=== PATIENT | female | born 1935 | race Caucasian/White ===

== ENCOUNTER 2016-08-20 16:38 | Inpatient (IN) | payer OTHER ==
[~2016-08-20] VITALS: Ht 157.5 cm; Wt 96.5 kg
[~2016-08-20 16:38] MED LIST: CYCL-319 PO; htn meds
[2016-08-20] MEDS ORDERED: FUROSEMIDE 40 MG INJ IV ONE (19:00)
--- NOTE | 2016-08-20 19:56 | RADRPT ---
PROCEDURE: XR Chest. CLINICAL INDICATION: Abdominal Pain TECHNIQUE: Portable single view of the chest COMPARISON: None. FINDINGS: Cardiomegaly and aortic calcification. Enlarged bilateral paratracheal soft tissues. Top normal pu lmonary vascularity. No definite acute infiltrate or pleural effusion. Degenerative change of the spine. IMPRESSION: Cardiomegaly and aortic calcification. Prominent bilateral paratracheal soft tissues which may be d ue to adenopathy, ectatic vasculature, or goiter. Elective follow-up CT is suggested. RPTAT: [facility] Physician Williams Date Time Electronically viewed and signed by Catherine Thomas Physician on 08/20/2016 19:56 YUNI/
--- NOTE | 2016-08-20 19:59 | ERA ---
ER Documentation Chief Complaint Date/Time DATE: 08/20/16 TIME: 19:58 Chief Complaint BILAT LOWER EXT SWELLING [id number], COUGH/CONGESTION [id number] HPI 81-year-old woman presents with family members for shortness of breath about 2 weeks of peripheral edema. She states she had one episode of peripheral edema about 3-4 months ago which resolved after a few days of oral furosemide therapy. She has had coughing and dyspnea on exertion 2 weeks, she denies fevers or chills, no chest pain, no vomiting or diarrhea. Patient denies blood per rectum or melena, denies weight loss. ROS All systems reviewed and are negative except as per history of present illness. Medications Home Meds Reported Medications [htn meds] No Conflict Check 02/02/13 Cyclobenzaprine Hcl* (Cyclobenzaprine Hcl*) 10 Mg Tablet, 10 MG PO TID 03/19/12 Allergies Allergies: Coded Allergies: No Known Allergy (Unverified , 02/02/13) PMhx/Soc Obesity, hypertension, diabetes mellitus, atrial fibrillation? History of Surgery: Yes (JOSEPHINE, HYSTERECTOMY) Anesthesia Reaction: No Hx Neurological Disorder: No Hx Respiratory Disorders: No Hx Cardiac Disorders: No Hx Psychiatric Problems: No Hx Miscellaneous Medical Probl: Yes (HTN) Hx Alcohol Use: No Hx Substance Use: No Hx Tobacco Use: No Smoking Status: Never smoker FmHx Family History: No diabetes Physical Exam Vitals Vital Signs Date Time Temp Pulse Resp B/P Pulse Ox O2 Delivery O2 Flow Rate FiO2 08/20/16 19:50 176/89 08/20/16 16:48 98.0 94 20 179/85 97 Physical Exam GENERAL: Well-developed, well-nourished, well-hydrated, in no apparent distress , looks nontoxic in appearance HEENT: Moist mucous membranes, pink conjunctiva, no cervical spine tenderness or step-off deformities, no goiter, no jaundice or icterus, extraocular movements intact without pain. No submandibular induration, and no pharyngeal erythema NEURO: Alert and oriented 3, cranial nerves II through XII intact bilaterally, pupils equal round reactive to light, no focal deficits or facial asymmetry, sensation intact distally Strength 5/5 in upper and lower extremities bilaterally CARDIAC: Regular rate and rhythm, no murmurs rubs or gallops LUNGS: Clear bilaterally no wheezing crackles or stridor ABDOMEN: Soft nontender, no guarding, no rigidity, no rebound, no psoas sign no obturator sign. Normoactive bowel sounds SKIN: Warm and dry to touch, no abrasions, contusions, or hematomas, no lacerations, no ecchymosis, no target lesions, and without ulcers EXTREMITIES: No clubbing cyanosis, 3+ pitting edema in the lower extremities bilaterally, calves are bilaterally symmetrical, no Homans sign, no popliteal cord sign. Distal pulses equal and bilateral PSYCH: Normal affect without agitation or irritability Result Diagram: 08/20/16193908/20/161939 Results 24 hrs Laboratory Tests Test 08/20/16 19:40 08/20/16 20:00 White Blood Count 7.610^3/ul Red Blood Count 3.5710^6/ul Hemoglobin 10.4g/dl Hematocrit 33.4% Mean Corpuscular Volume 93.6fl Mean Corpuscular Hemoglobin 29.1pg Mean Corpuscular Hemoglobin Concent 31.1g/dl Red Cell Distribution Width 13.7% Platelet Count 38714^3/UL Mean Platelet Volume 12.4fl Neutrophils % 64.4% Lymphocytes % 20.4% Monocytes % 9.8% Eosinophils % 4.5% Basophils % 0.5% Nucleated Red Blood Cells % 0.0/100WBC Neutrophils # 4.910^3/ul Lymphocytes # 1.610^3/ul Monocytes # 0.710^3/ul Eosinophils # 0.310^3/ul Basophils # 0.010^3/ul Nucleated Red Blood Cells # 0.010^3/ul Sodium Level 140mmol/L Potassium Level 4.6mmol/L Chloride Level 102mmol/L Carbon Dioxide Level 28mmol/L Anion Gap 15 Blood Urea Nitrogen 25mg/dl Creatinine 1.22mg/dl Glucose Level 122mg/dl Calcium Level 9.5mg/dl Total Bilirubin 0.2mg/dl Direct Bilirubin 0.00mg/dl Indirect Bilirubin 0.2mg/dl Aspartate Amino Transf (AST/SGOT) 27IU/L Alanine Aminotransferase (ALT/SGPT) 27IU/L Alkaline Phosphatase 142IU/L Troponin I < 0.012ng/ml B-Type Natriuretic Peptide 5300PG/ML Total Protein 7.3g/dl Albumin 3.9g/dl Globulin 3.40g/dl Albumin/Globulin Ratio 1.14 Lipase 161U/L Urine Color LT. YELLOW Urine Clarity CLEAR Urine pH 6.5 Urine Specific Timbo 1.010 Urine Ketones NEGATIVE Urine Nitrite NEGATIVE Urine Bilirubin NEGATIVE Urine Urobilinogen 0.2 E.U./dL Urine Leukocyte Esterase 1+ Urine Microscopic RBC NONE SEEN/HPF Urine Microscopic WBC 10-25/HPF Urine Squamous Epithelial Cells FEW Urine Bacteria FEW Urine Hemoglobin NEGATIVE Urine Glucose NEGATIVE% Urine Total Protein 2+ Current Medications Medications (Trade) Dose Ordered Sig/Shalonda Route PRN Reason Start Time Stop Time Status Last Admin Dose Admin Furosemide (Lasix) 60 mg ONCE ONCE IV 08/20/16 19:00 08/20/16 19:01 DC 08/20/16 19:45 Aspirin (Aspirin) 325 mg ONCE ONCE PO 08/20/16 20:30 08/20/16 20:31 DC 08/20/16 20:20 Digoxin (Digoxin) 125 mcg ONCE ONCE IV 08/20/16 20:30 08/20/16 20:31 DC 08/20/16 20:21 Procedures/MDM IV line was established patient was placed on manager cardiac rhythm strip revealed a normal sinus rhythm at about 80 bpm with upright P and T waves. Patient was afebrile. EKG performed, read by me revealed an atrial fibrillation rate controlled at 84 bpm, normal axis, narrow QRS complex, no concerning ST elevations or depressions noted. One view chest x-ray performed, read by me revealed cardiomegaly and bilateral pulmonary vascular congestion consistent with decompensated heart failure, no acute infiltrates, no pneumothorax. I administered furosemide 60 mg IV, aspirin 325 mg p.o. for cardioprotective measures, and digoxin 0.25 mg IV. CBC was unremarkable, electrolytes revealed a BUN/creatinine of 25/1.2, liver function tests are normal, troponin was negative. Urine analysis was positive for infection so I treated her here with ceftriaxone 1 g IV. I suspect decompensated heart failure and she will require admission for diuresis and continued medical management and cardiology consultation. She may have a history of atrial fibrillation although I am uncertain about this. Critical Care: Time: 37 minutes, this was time separate from other procedures. Treatments/Evaluations: Close monitoring and treatment of unstable vital signs, cardiorespiratory, and neurologic status, while maintaining tight balance of fluid, respiratory, and cardiac interventions. Departure Diagnosis: Primary Impression: CHF (congestive heart failure) Qualified Code: I50.21 - Acute systolic congestive heart failure Additional Impressions: Atrial fibrillation Qualified Code: I48.91 - Atrial fibrillation, unspecified type Peripheral edema UTI (urinary tract infection) Qualified Code: N30.00 - Acute cystitis without hematuria Condition: ZACK Nelson MD Aug 20, 2016 19:59
[2016-08-20 20:07] LABS: ADD SCAN DIFF NO
[2016-08-20 20:10] LABS: BASOPHILS % 0.5 % (0.0-2.0); EOSINOPHILS # 0.3 10^3/ul (0.0-0.5); EOSINOPHILS % 4.5 % (0.0-7.0); HEMATOCRIT 33.4 % (37.0-47.0); HEMOGLOBIN 10.4 g/dl (12.0-16.0); LYMPHOCYTES # 1.6 10^3/ul (0.8-2.9); LYMPHOCYTES % 20.4 % (15.0-51.0); MEAN CORPUSCULAR HEMOGLOBIN 29.1 pg (29.0-33.0); MEAN CORPUSCULAR HGB CONC 31.1 g/dl (32.0-37.0); MEAN CORPUSCULAR VOLUME 93.6 fl (82.0-101.0); MEAN PLATELET VOLUME 12.4 fl (7.4-10.4); MONOCYTE # 0.7 10^3/ul (0.3-0.9); MONOCYTES % 9.8 % (0.0-11.0); NEUTROPHIL # 4.9 10^3/ul (1.6-7.5); NEUTROPHILS % 64.4 % (39.0-77.0); PLATELET COUNT 235 10^3/UL (140-415); RED BLOOD COUNT 3.57 10^6/ul (4.20-5.40); RED CELL DISTRIBUTION WIDTH 13.7 % (11.5-14.5); WHITE BLOOD COUNT 7.6 10^3/ul (4.8-10.8)
[2016-08-20 20:26] LABS: ALBUMIN 3.9 g/dl (3.3-4.9)
[2016-08-20 20:27] LABS: CHLORIDE 102 mmol/L (97-110); POTASSIUM 4.6 mmol/L (3.5-5.1); SODIUM 140 mmol/L (135-144)
[2016-08-20 20:29] LABS: ANION GAP 15 (8-16); ASPARTATE AMINO TRANSFERASE 27 IU/L (15-46); BILIRUBIN,INDIRECT 0.2 mg/dl (0-1.1); BILIRUBIN,TOTAL 0.2 mg/dl (0.2-1.3); CARBON DIOXIDE 28 mmol/L (21-31); CREATININE 1.22 mg/dl (0.44-1.00)
[2016-08-20 20:30] LABS: ALANINE AMINOTRANSFERASE 27 IU/L (13-69); ALBUMIN/GLOBULIN RATIO 1.14; ALKALINE PHOSPHATASE 142 IU/L (42-121); BLOOD UREA NITROGEN 25 mg/dl (7-20); CALCIUM 9.5 mg/dl (8.4-10.2); GLUCOSE 122 mg/dl (70-220); TOTAL PROTEIN 7.3 g/dl (6.1-8.1)
[2016-08-20] MEDS ORDERED: DIGOXIN 500 MCG INJ IV ONE (20:30)
[2016-08-20] MEDS ORDERED: ASPIRIN 325 MG TAB PO ONE (20:30)
[2016-08-20 20:36] LABS: ADD UMIC YES; URINE BILIRUBIN (Dip) NEGATIVE (NEGATIVE); URINE BLOOD (Dip) NEGATIVE (NEGATIVE); URINE COLOR LT. YELLOW (YELLOW); URINE GLUCOSE (Dip) NEGATIVE (NEGATIVE); URINE KETONES (Dip) NEGATIVE (NEGATIVE); URINE LEUKOCYTE ESTERASE (Dip) 1+ (NEGATIVE); URINE NITRITE (Dip) NEGATIVE (NEGATIVE); URINE TOTAL PROTEIN (Dip) 2+ (NEGATIVE); URINE UROBILINOGEN (Dip) 0.2 E.U./dL (0.1-1.0)
[2016-08-20 20:39] LABS: B-TYPE NATRIURETIC PEPTIDE 5300 PG/ML (0-450)
[2016-08-20 20:49] LABS: TROPONIN-I < 0.012 ng/ml (0.00-0.12)
[2016-08-20 21:01] LABS: BACTERIA,URINE FEW; SQUAMOUS EPITHELIAL CELL,UR FEW; URINE RBCS NONE SEEN /HPF (0)
[2016-08-20] MEDS ORDERED: CEFTRIAXONE 1 GM/50 ML (PMX) 50 ML IVPB ONE (21:30)
[2016-08-20] MEDS ORDERED: POTA20TA15 PO (21:31)
[2016-08-20] MEDS ORDERED: LISI-313 PO (21:32)
[2016-08-20] MEDS ORDERED: CARV12.579 PO (21:32)
[2016-08-20] MEDS ORDERED: OMEP20CA16 PO (21:33)
[2016-08-20] MEDS ORDERED: FURO40TA4 PO (21:34)
[2016-08-20] MEDS ORDERED: ASPI-664 PO (21:34)
[2016-08-20] MEDS ORDERED: WARF5TAB72 PO (21:35)
[2016-08-20] MEDS ORDERED: AMLO2.5T78 PO (21:35)
[2016-08-20] MEDS ORDERED: METO-429 PO (21:36)
[2016-08-20] MEDS ORDERED: ATOR40TA68 PO (21:36)
[2016-08-20] MEDS ORDERED: GLIP5TAB13 PO (21:37)
[2016-08-20] MEDS ORDERED: METF500T4 PO (21:38)
[2016-08-21] VITALS (10 sets, daily range): BP systolic 125–170; BP diastolic 76–115; PULSE 76–88; RESP 17–20; TEMP 98.2; Ht 157.5 cm; Wt 96.5 kg
[2016-08-21] MEDS ORDERED: FUROSEMIDE 40 MG TAB PO SCH (09:00)
[2016-08-21] MEDS: LISINOPRIL 5 MG TAB PO SCH (09:20)
[2016-08-21] MEDS: AMLODIPINE 2.5 MG TAB PO SCH (09:20)
[2016-08-21] MEDS: ASPIRIN (EC) 81 MG TAB PO SCH (09:20)
[2016-08-21] MEDS: ATORVASTATIN 40 MG TAB PO SCH (09:21)
[2016-08-21] MEDS: POTASSIUM CHLORIDE (SR) 20 MEQ TAB PO SCH (09:44)
[2016-08-21] MEDS: METOPROLOL 50 MG TAB PO SCH ×2 (09:45→20:46)
[2016-08-21] MEDS ORDERED: ACETAMINOPHEN 325 MG TAB PO PRN (14:30)
[2016-08-21] MEDS ORDERED: NACL 0.9% 3 ML SYG IV SCH (14:30)
--- NOTE | 2016-08-21 16:13 | HP ---
Date/Time of Note Date/Time of Note DATE: 08/21/16 TIME: 15:56 Assessment/Plan VTE Prophylaxis VTE Prophylaxis Intervention: LMWH Lines/Catheters IV [facility] Saline Lock Assessment/Plan Chief Complaint/Hosp Course 1. Decompensated systolic CHF 2. Acute renal failure 3. Hypertension, controlled 4. Morbid obesity 5. Atrial fibrillation, controlled Problems: Assessment/Plan 1. Diuresis 2. Cardiology consult Dr Owens 3. Telemetry monitoring HPI/ROS Admit Date/Time Admit Date/Time Aug 20, 2016 at 20:21 Hx of Present Illness pt was brought by family to ER . Patient reported Shortness of breath for 2 weeks, cough and dyspnea on exertion.Previously few month ago patient had similar event with shortness of breath and swollen feet when she was treated by oral furosemide and those symptoms resolved. ROS Constitutional: fatigue Eyes: no complaints ENT: no complaints Respiratory: shortness of breath Cardiovascular: No edema, No lightheadedness, No orthopenea, No palpitations, No paroxysmal nocturnal dyspnea Gastrointestinal: no complaints Genitourinary: no complaints Musculoskeletal: back pain, bone/joint pain, neck pain, no complaints, other, restricted range of motion, swelling (lower extremities) Skin: no complaints PMH/Family/Social Past Medical History hysterectomy Medical History: congestive heart failure, hypertension, other Past Surgical History hysterectomy Past Surgical Hx: other Family History Significant Family History: no pertinent family hx Social History Alcohol Use: none Smoking Status: Never smoker Drug Use: none Exam/Review of Systems Vital Signs Vitals Vital Signs Date Time Temp Pulse Resp B/P Pulse Ox O2 Delivery O2 Flow Rate FiO2 08/21/16 15:23 98.0 77 18 125/78 98 08/21/16 14:38 Room Air Exam Constitutional: alert, oriented, other Psych: nl mood/affect, no complaints Head: atraumatic, normocephalic ENMT: nl external ears & nose, nl lips & teeth Neck: supple Respiratory: diminished breath sounds Cardiovascular: other (S2 only), regular rate and rhythm Gastrointestinal: soft Genitourinary - Female: nl external genitalia Musculoskeletal: muscle weakness, swelling Extremities: edema Neurological: ELEVATOR RUNNER II-XII intact, nl mental status Skin: nl turgor Lymph: nl lymph nodes Labs Result Diagram: 4/27/17 1940 4/27/17 1940 Medications Medications Current Medications Amlodipine Besylate (Norvasc) 2.5 mg DAILY PO Last administered on 08/21/16 09 :20; Admin Dose 2.5 MG; Start 08/21/16 at 09:00 Aspirin (Halfprin) 81 mg DAILY PO Last administered on 08/21/16 09:20; Admin Dose 81 MG; Start 08/21/16 at 09:00 Atorvastatin Calcium (Lipitor) 40 mg DAILY PO Last administered on 08/21/16 09 :21; Admin Dose 40 MG; Start 08/21/16 at 09:00 Carvedilol (Coreg) 12.5 mg BID PO Last administered on 08/21/16 09:21; Admin Dose 12.5 MG; Start 08/21/16 at 09:00 Furosemide (Lasix) 40 mg DAILY@06 PO Last administered on 08/21/16 09:20; Admin Dose 40 MG; Start 08/21/16 at 09:00 Lisinopril (Zestril) 5 mg DAILY PO Last administered on 08/21/16 09:20; Admin Dose 5 MG; Start 08/21/16 at 09:00 Metoprolol Tartrate (Lopressor) 50 mg BID PO Last administered on 08/21/16 09: 45; Admin Dose 50 MG; Start 08/21/16 at 09:00 Potassium Chloride (Klor-Con 20) 20 meq DAILY PO Last administered on 09:44; Admin Dose 20 MEQ; Start 08/21/16 at 09:00 Warfarin Sodium (Coumadin) 5 mg DAILY@17 PO ; Start 08/21/16 at 17:00 Acetaminophen (Tylenol Tab) 650 mg Q6H PRN PO PAIN LEVEL 1-3 OR FEVER; Start at 14:30 Famotidine (Pepcid) 20 mg Q12 PO ; Start 08/21/16 at 21:00 WADE AGUIAR Aug 21, 2016 16:06 WADE AGUIAR Aug 21, 2016 16:06
--- NOTE | 2016-08-21 16:39 | CONS ---
DATE OF ADMISSION: 08/20/2016 DATE OF CONSULTATION: 08/21/2016 CARDIOLOGY CONSULTATION REASON FOR CONSULTATION: Atrial fibrillation, shortness of breath, lower extremity edema, assess for congestive heart failure. REQUESTING PHYSICIAN: Dr. Mateusz Kaminski HISTORY OF PRESENT ILLNESS: Ms. Salgado is an 81-year-old female with a history of prior cholecystectomy, hysterectomy, and hypertension who initially presented with complaints of lower extremity swelling, shortness of breath, and cough ongoing for approximately 1 week. Upon arrival in the emergency department, temperature 98, blood pressure 145/85, pulse 94, respiratory rate 20 , saturating 97%. The patient's labs revealed white count 7.6, hemoglobin 10.4 , platelet count 235. Sodium 140, potassium 4.6, creatinine 1.22, BUN 25, AST 27, ALT 27. Troponin negative. BNP of 5300. UA borderline. The patient underwent a chest x-ray revealing cardiomegaly and aortic calcification, prominent bilateral. Peritracheal soft tissue may be due to adenopathy, ectatic vasculature, or goiter. No definite acute infiltrate or pleural effusion. The patient's electrocardiogram is not in the chart for my review at this time. The patient subsequently was found to be in atrial fibrillation additionally and was treated with digoxin 125 mcg IV x1 and given a dose of Lasix for lower extremity swelling and is now being admitted to the floor. Since admit to floor, the patient monitored on telemetry revealing rate controlled atrial fibrillation. PAST MEDICAL HISTORY: As above in HPI. MEDICATIONS CURRENTLY IN HOSPITAL: 2. Coumadin 5 mg daily. 3. Tylenol p.r.n. 4. Norvasc 2.5 mg daily. 5. Aspirin 81 mg daily. 6. Lipitor 40 mg daily. 7. Carvedilol 12.5 mg p.o. b.i.d. 8. Lasix 40 mg daily. 9. Zestril 5 mg daily. 10. Metoprolol 50 mg p.o. b.i.d. 11. Potassium chloride 10 mEq daily. ALLERGIES: NO KNOWN DRUG ALLERGIES. SOCIAL HISTORY: No tobacco, ETOH, or illicit drug use. MEDICATIONS PRIOR TO HOSPITALIZATION: 1. Coumadin 5 mg daily. 2. Norvasc 2.5 mg daily. 3. Lipitor 40 mg at bedtime. 4. Carvedilol 12.5 mg p.o. b.i.d. 5. Lisinopril 5 mg daily. 7. Metoprolol 50 mg b.i.d. 8. Aspirin 81 mg daily. 9. Lasix 40 mg daily. 10. K-Dur 20 mEq daily. 11. Glipizide 5 mg daily. 12. Metformin 500 mg b.i.d. ALLERGIES: NO KNOWN DRUG ALLERGIES. SOCIAL HISTORY: No tobacco, ETOH, or illicit drug use. FAMILY HISTORY: No history of sudden cardiac or early CAD. REVIEW OF SYSTEMS: As above in HPI. CONSTITUTIONAL: No fevers, chills. PULMONARY: Shortness of breath. CARDIOVASCULAR: No current chest pain, atrial fibrillation. GASTROINTESTINAL: No vomiting. GENITOURINARY: No hematuria. MUSCULOSKELETAL: Degenerative joint disease. PSYCHIATRIC: No documented psych history. NEUROLOGIC: No documented history of CVA. PHYSICAL EXAMINATION: VITAL SIGNS: Temperature 98, blood pressure 125/78, pulse 77, respiratory rate 18, saturating 98%. GENERAL: The patient is alert, awake, complaining of mild shortness of breath. NECK: JVP approximately 8 to 9 cm of water. CHEST: Fair movement throughout with mildly decreased breath sounds at bases bilaterally. HEART: Irregularly irregular, I/ systolic murmur, nondisplaced PMI. ABDOMEN: Positive bowel sounds, soft. EXTREMITIES: 2 to 3+ edema bilaterally. Difficult to palpate distal pulses bilaterally posterior tibial. LABORATORY DATA: As above in HPI. No further labs for my review at this time. IMAGING STUDIES: As above in HPI. No further imaging studies for my review at this time. ECG: Which has now been found reveals atrial fibrillation at a rate of 84, normal axis, normal intervals with nonspecific ST and T-wave abnormalities diffusely. IMPRESSION: 1. Atrial fibrillation, rate controlled. 2. Shortness of breath, lower extremity edema, assess for congestive heart failure. 3. Hypertension, under reasonable control. 4. Dyslipidemia. 5. Renal failure. 6. Anemia. 7. Borderline urinary tract infection. RECOMMENDATIONS: 1. At this time, would maintain the patient on telemetry monitoring to follow rhythm and rate control closely. 2. We will continue the patient's current Lasix diuresis. We will increase to b.i.d. following creatinine closely. 3. Continue the patient's current antihypertensives with Norvasc, carvedilol, and Zestril. 4. Continue the patient's Coumadin loading and would check an INR and baseline to assess current anticoagulation state. 5. Continue the patient's baby aspirin at this time. 6. Check serial EKGs to assess for any significant ongoing changes. Would complete a rule out for myocardial infarction to ensure the patient's prior EKG changes are not due to any recent acute coronary syndromes, also lending to the lower extremity edema, possible congestive heart failure. 7. Would check a 2D echocardiogram to further assess the patient's ejection fraction, wall motion, or any major valve abnormalities. Thank you for allowing me to take part in the care of this patient. I will continue to follow along very closely with you. Further recommendations to be made as the patient progresses through her inpatient hospital clinical course. Dictated By: MARINA JOHNSON/JUSTO Conf#: [id number] DID#: [id number] CC: MATEUSZ KAMINSKI MD;*EndCC* MTDD
[2016-08-21] MEDS: WARFARIN 5 MG TAB PO SCH (17:32)
[2016-08-21] MEDS: FUROSEMIDE 40 MG INJ IV SCH (17:33)
--- NOTE | 2016-08-21 17:38 | RADRPT ---
PROCEDURE: US Lower extremity Venous. CLINICAL INDICATION: Bilateral lower extremity edema TECHNIQUE: Multiple sonographic images of the bilateral lower extremity deep venous system was obt ained utilizing grayscale, color-flow, compressive sonography and doppler imaging with augmentation. The images were reviewed on a PACS workstation. COMPARISON: None. FINDINGS: There is normal compressibility and flow within the bilateral common femoral, femoral , posterior ti bial and popliteal veins. There is a complex right popliteal Tello's cyst measuring 2.6 x 1.6 x 5.6 cm. RPTAT: AA IMPRESSION: No sonographic evidence for deep venous thrombosis. Complex right popliteal Tello's cyst. .Marshall Braga MD, MD Date Time Electronically viewed and signed by .Marshall Braga MD, on 08/21/2016 17:37 .S/
[2016-08-21 17:41] LABS: INR 1.82; PROTIME 21.2 Sec (12.2-14.2); PT RATIO 1.7
[2016-08-21 19:24] LABS: CREATINE KINASE 95 IU/L (23-200)
[2016-08-21 19:32] LABS: CK-MB 0.71 ng/ml (0.0-2.4)
[2016-08-21 19:42] LABS: TROPONIN-I < 0.012 ng/ml (0.00-0.12)
[2016-08-21] MEDS: FAMOTIDINE 20 MG TAB PO SCH (20:46)
[2016-08-22] VITALS (13 sets, daily range): BP systolic 119–163; BP diastolic 57–85; PULSE 75–85; RESP 16–20
[2016-08-22 01:00] LABS: CREATINE KINASE 123 IU/L (23-200)
[2016-08-22 01:14] LABS: CK-MB 0.85 ng/ml (0.0-2.4)
[2016-08-22 01:17] LABS: TROPONIN-I < 0.012 ng/ml (0.00-0.12)
[2016-08-22] MEDS: FUROSEMIDE 40 MG INJ IV SCH (05:39)
[2016-08-22 07:07] LABS: ADD SCAN DIFF NO
[2016-08-22 07:22] LABS: BASOPHILS % 0.6 % (0.0-2.0); EOSINOPHILS # 0.3 10^3/ul (0.0-0.5); EOSINOPHILS % 4.2 % (0.0-7.0); HEMATOCRIT 33.3 % (37.0-47.0); HEMOGLOBIN 10.4 g/dl (12.0-16.0); INR 1.73; LYMPHOCYTES # 1.5 10^3/ul (0.8-2.9); LYMPHOCYTES % 21.6 % (15.0-51.0); MEAN CORPUSCULAR HEMOGLOBIN 28.7 pg (29.0-33.0); MEAN CORPUSCULAR HGB CONC 31.2 g/dl (32.0-37.0); MEAN CORPUSCULAR VOLUME 91.7 fl (82.0-101.0); MEAN PLATELET VOLUME 12.7 fl (7.4-10.4); MONOCYTE # 0.7 10^3/ul (0.3-0.9); MONOCYTES % 10.1 % (0.0-11.0); NEUTROPHIL # 4.5 10^3/ul (1.6-7.5); NEUTROPHILS % 63.4 % (39.0-77.0); PLATELET COUNT 229 10^3/UL (140-415); PROTIME 20.4 Sec (12.2-14.2); PT RATIO 1.6; RED BLOOD COUNT 3.63 10^6/ul (4.20-5.40); RED CELL DISTRIBUTION WIDTH 13.7 % (11.5-14.5); WHITE BLOOD COUNT 7.1 10^3/ul (4.8-10.8)
[2016-08-22 07:29] LABS: CREATINE KINASE 143 IU/L (23-200)
[2016-08-22 07:37] LABS: ALBUMIN 3.6 g/dl (3.3-4.9); CK-MB 1.26 ng/ml (0.0-2.4)
[2016-08-22 07:38] LABS: TROPONIN-I < 0.012 ng/ml (0.00-0.12)
[2016-08-22 07:40] LABS: ALBUMIN/GLOBULIN RATIO 1.2; BILIRUBIN,INDIRECT 0.5 mg/dl (0-1.1); BILIRUBIN,TOTAL 0.5 mg/dl (0.2-1.3); CREATININE 1.46 mg/dl (0.44-1.00); TOTAL PROTEIN 6.6 g/dl (6.1-8.1)
[2016-08-22 07:41] LABS: CALCIUM 9.5 mg/dl (8.4-10.2)
[2016-08-22] MEDS: FAMOTIDINE 20 MG TAB PO SCH ×2 (08:14→21:07)
[2016-08-22] MEDS: ASPIRIN (EC) 81 MG TAB PO SCH (08:14)
[2016-08-22] MEDS: AMLODIPINE 2.5 MG TAB PO SCH (08:14)
[2016-08-22] MEDS: ATORVASTATIN 40 MG TAB PO SCH (08:14)
[2016-08-22] MEDS: POTASSIUM CHLORIDE (SR) 20 MEQ TAB PO SCH (08:15)
[2016-08-22] MEDS: LISINOPRIL 5 MG TAB PO SCH (08:15)
[2016-08-22] MEDS: METOPROLOL 50 MG TAB PO SCH (08:15)
[2016-08-22 09:33] LABS: CHOL/HDL RATIO 1.8 RATIO
--- NOTE | 2016-08-22 13:11 | PN ---
Date/Time of Note Date/Time of Note DATE: 08/22/16 TIME: 13:09 Assessment/Plan VTE Prophylaxis VTE Prophylaxis Intervention: ambulation Lines/Catheters IV [facility] Saline Lock Assessment/Plan Chief Complaint/Hosp Course 1. Decompensated systolic CHF 2. Acute renal failure 3. Hypertension, controlled 4. Morbid obesity 5. Atrial fibrillation, controlled 6. Elevated blood sugar without DM Problems: Assessment/Plan 1. Continue diuresis 2. Optimization kidney function Subjective 24 Hr Interval Summary Constitutional: improved, no complaints Cardiovascular: no complaints Exam/Review of Systems Vital Signs Vitals Vital Signs Date Time Temp Pulse Resp B/P Pulse Ox O2 Delivery O2 Flow Rate FiO2 08/22/16 12:09 79 08/22/16 11:36 98.3 19 123/57 94 08/21/16 14:38 Room Air Intake and Output 08/21/16 08/21/16 08/22/16 15:00 23:00 07:00 Intake Total 550 ml 400 ml Balance 550 ml 400 ml Exam Constitutional: alert, oriented Psych: no complaints Head: normocephalic Eyes: nl conjunctiva ENMT: nl external ears & nose Neck: supple Respiratory: clear to auscultation Cardiovascular: regular rate and rhythm Gastrointestinal: soft Results Result Diagram: 08/22/16 0630 08/22/16 0630 Results 24 hrs Laboratory Tests Test 08/21/16 16:45 08/21/16 17:00 08/22/16 00:31 08/22/16 06:30 Prothrombin Time 21.2 H 20.4 H Prothrombin Time Ratio 1.7 1.6 INR International Normalized Ratio 1.82 1.73 Thyroid Stimulating Hormone (TSH) 0.980 Creatine Kinase 95 123 143 Creatine Kinase Index 0.7 0.7 0.9 Creatinine Kinase MB (Mass) 0.71 0.85 1.26 Troponin I < 0.012 < 0.012 < 0.012 White Blood Count 7.1 Red Blood Count 3.63 L Hemoglobin 10.4 L Hematocrit 33.3 L Mean Corpuscular Volume 91.7 Mean Corpuscular Hemoglobin 28.7 L Mean Corpuscular Hemoglobin Concent 31.2 L Red Cell Distribution Width 13.7 Platelet Count 229 Mean Platelet Volume 12.7 H Neutrophils % 63.4 Lymphocytes % 21.6 Monocytes % 10.1 Eosinophils % 4.2 Basophils % 0.6 Nucleated Red Blood Cells % 0.0 Neutrophils # 4.5 Lymphocytes # 1.5 Monocytes # 0.7 Eosinophils # 0.3 Basophils # 0.0 Nucleated Red Blood Cells # 0.0 Activated Partial Thromboplast Time 41.0 H Sodium Level 139 Potassium Level 4.0 Chloride Level 100 Carbon Dioxide Level 27 Anion Gap 16 Blood Urea Nitrogen 37 #H Creatinine 1.46 H Glucose Level 120 Hemoglobin A1c 6.1 H Calcium Level 9.5 Total Bilirubin 0.5 Direct Bilirubin 0.00 Indirect Bilirubin 0.5 Aspartate Amino Transf (AST/SGOT) 20 Alanine Aminotransferase (ALT/SGPT) 33 Alkaline Phosphatase 109 Total Protein 6.6 Albumin 3.6 Globulin 3.00 Albumin/Globulin Ratio 1.20 Triglycerides Level 118 Cholesterol Level 124 LDL Cholesterol, Calculated 32 HDL Cholesterol 68 Cholesterol/HDL Ratio 1.8 Medications Medications Current Medications Amlodipine Besylate (Norvasc) 2.5 mg DAILY PO Last administered on 08/22/16 08 :14; Admin Dose 2.5 MG; Start 08/21/16 at 09:00 Aspirin (Halfprin) 81 mg DAILY PO Last administered on 08/22/16 08:14; Admin Dose 81 MG; Start 08/21/16 at 09:00 Atorvastatin Calcium (Lipitor) 40 mg DAILY PO Last administered on 08/22/16 08 :14; Admin Dose 40 MG; Start 08/21/16 at 09:00 Carvedilol (Coreg) 12.5 mg BID PO Last administered on 08/22/16 08:15; Admin Dose 12.5 MG; Start 08/21/16 at 09:00 Lisinopril (Zestril) 5 mg DAILY PO Last administered on 08/22/16 08:15; Admin Dose 5 MG; Start 08/21/16 at 09:00 Metoprolol Tartrate (Lopressor) 50 mg BID PO Last administered on 08/22/16 08: 15; Admin Dose 50 MG; Start 08/21/16 at 09:00 Potassium Chloride (Klor-Con 20) 20 meq DAILY PO Last administered on 08:15; Admin Dose 20 MEQ; Start 08/21/16 at 09:00 Warfarin Sodium (Coumadin) 5 mg DAILY@17 PO Last administered on 08/21/16 17: 32; Admin Dose 5 MG; Start 08/21/16 at 17:00 Acetaminophen (Tylenol Tab) 650 mg Q6H PRN PO PAIN LEVEL 1-3 OR FEVER; Start at 14:30 Famotidine (Pepcid) 20 mg Q12 PO Last administered on 08/22/16 08:14; Admin Dose 20 MG; Start 08/21/16 at 21:00 WADE AGUIAR Aug 22, 2016 13:11
--- NOTE | 2016-08-22 13:28 | CONS ---
Date/Time of Note Date/Time of Note DATE: 08/22/16 TIME: 13:23 Assessment/Plan Assessment/Plan Chief Complaint/Hosp Course IMPRESSION: 1. Atrial fibrillation, rate controlled. TSH WNL 2. Shortness of breath, lower extremity edema, assess for congestive heart failure. 3. Hypertension, under reasonable control. 4. Dyslipidemia.-LDL 32 HDL 68 5. Renal failure. 6. Anemia. 7. Borderline urinary tract infection. REcc: -Tele -serial ecg -Will f/u echo -D/C second BB -Continue acei/CCB -increase coumadin and f/u INR -DEcare lasix to daily given worsening 3rd mate Problems: Consultation Date/Type/Reason Admit Date/Time Aug 20, 2016 at 20:21 Initial Consult Date 08/21/2016 Type of Consultation: Cardiology Reason for Consultation AF Referring Provider: ASHLEY KAMINSKI MD Exam/Review of Systems Vital Signs Vitals Vital Signs Date Time Temp Pulse Resp B/P Pulse Ox O2 Delivery O2 Flow Rate FiO2 08/22/16 12:09 79 08/22/16 11:36 98.3 19 123/57 94 08/21/16 14:38 Room Air Intake and Output 08/21/16 08/21/16 08/22/16 15:00 23:00 07:00 Intake Total 550 ml 400 ml Balance 550 ml 400 ml Exam Review of Systems: CONSTITUTIONAL: No fevers, chills. PULMONARY: No sob CARDIOVASCULAR: No chest pain/palpitations GASTROINTESTINAL: No nausea/vomiting. GENITOURINARY: No hematuria/dysuria. MUSCULOSKELETAL: No myagias/arthalgias. PSYCHIATRIC: The patient denies depression. NEUROLOGIC: No weakness Constitutional: alert, oriented Psych: no complaints Head: normocephalic ENMT: mucosa pink and moist Neck: jvd (9 cm water), supple Respiratory: diminished breath sounds (at bases/B) Cardiovascular: irregular rhythm Gastrointestinal: non-tender, soft Musculoskeletal: muscle tone (normal) Extremities: edema (none) Neurological: other (No focal deficits) Results Result Diagram: 08/22/16 0630 08/22/16 0630 Results 24 hrs Laboratory Tests Test 08/21/16 16:45 08/21/16 17:00 08/22/16 00:31 08/22/16 06:30 Prothrombin Time 21.2 H 20.4 H Prothrombin Time Ratio 1.7 1.6 INR International Normalized Ratio 1.82 1.73 Thyroid Stimulating Hormone (TSH) 0.980 Creatine Kinase 95 123 143 Creatine Kinase Index 0.7 0.7 0.9 Creatinine Kinase MB (Mass) 0.71 0.85 1.26 Troponin I < 0.012 < 0.012 < 0.012 White Blood Count 7.1 Red Blood Count 3.63 L Hemoglobin 10.4 L Hematocrit 33.3 L Mean Corpuscular Volume 91.7 Mean Corpuscular Hemoglobin 28.7 L Mean Corpuscular Hemoglobin Concent 31.2 L Red Cell Distribution Width 13.7 Platelet Count 229 Mean Platelet Volume 12.7 H Neutrophils % 63.4 Lymphocytes % 21.6 Monocytes % 10.1 Eosinophils % 4.2 Basophils % 0.6 Nucleated Red Blood Cells % 0.0 Neutrophils # 4.5 Lymphocytes # 1.5 Monocytes # 0.7 Eosinophils # 0.3 Basophils # 0.0 Nucleated Red Blood Cells # 0.0 Activated Partial Thromboplast Time 41.0 H Sodium Level 139 Potassium Level 4.0 Chloride Level 100 Carbon Dioxide Level 27 Anion Gap 16 Blood Urea Nitrogen 37 #H Creatinine 1.46 H Glucose Level 120 Hemoglobin A1c 6.1 H Calcium Level 9.5 Total Bilirubin 0.5 Direct Bilirubin 0.00 Indirect Bilirubin 0.5 Aspartate Amino Transf (AST/SGOT) 20 Alanine Aminotransferase (ALT/SGPT) 33 Alkaline Phosphatase 109 Total Protein 6.6 Albumin 3.6 Globulin 3.00 Albumin/Globulin Ratio 1.20 Triglycerides Level 118 Cholesterol Level 124 LDL Cholesterol, Calculated 32 HDL Cholesterol 68 Cholesterol/HDL Ratio 1.8 Medications Medications Current Medications Amlodipine Besylate (Norvasc) 2.5 mg DAILY PO Last administered on 08/22/16 08 :14; Admin Dose 2.5 MG; Start 08/21/16 at 09:00 Aspirin (Halfprin) 81 mg DAILY PO Last administered on 08/22/16 08:14; Admin Dose 81 MG; Start 08/21/16 at 09:00 Atorvastatin Calcium (Lipitor) 40 mg DAILY PO Last administered on 08/22/16 08 :14; Admin Dose 40 MG; Start 08/21/16 at 09:00 Carvedilol (Coreg) 12.5 mg BID PO Last administered on 08/22/16 08:15; Admin Dose 12.5 MG; Start 08/21/16 at 09:00 Lisinopril (Zestril) 5 mg DAILY PO Last administered on 08/22/16 08:15; Admin Dose 5 MG; Start 08/21/16 at 09:00 Metoprolol Tartrate (Lopressor) 50 mg BID PO Last administered on 08/22/16 08: 15; Admin Dose 50 MG; Start 08/21/16 at 09:00 Potassium Chloride (Klor-Con 20) 20 meq DAILY PO Last administered on 08:15; Admin Dose 20 MEQ; Start 08/21/16 at 09:00 Warfarin Sodium (Coumadin) 5 mg DAILY@17 PO Last administered on 08/21/16 17: 32; Admin Dose 5 MG; Start 08/21/16 at 17:00 Acetaminophen (Tylenol Tab) 650 mg Q6H PRN PO PAIN LEVEL 1-3 OR FEVER; Start at 14:30 Famotidine (Pepcid) 20 mg Q12 PO Last administered on 08/22/16 08:14; Admin Dose 20 MG; Start 08/21/16 at 21:00 MARINA RIOS Aug 22, 2016 13:28
[2016-08-22] MEDS: WARFARIN 5 MG TAB PO SCH (17:02)
--- NOTE | 2016-08-22 17:15 | RADRPT ---
Echocardiogram Report Patient Name: MAIA ALVAREZ Gender: Female Date: 1935 Study Date: 22-Aug-2016 Capital Project Engineer: AMMY Location: I Height(Cm): 157 Weight(Kg): 71 BSA: 1.76 Ref. Physician: MARINA OWENS Quality: Adequate Procedures: Transthoracic echocardiogram with complete 2D, M-Mode, and Doppler examination. Indications: Congestive Heart Failure. 2D/M Mode Doppler Measurement Value Normal Ranges Measurement Value Normal Ranges AoR Diam MM 3.0 cm AV Peak Harry 1.2 m/sec LVIDd 2D 4.5 3.5 - 5.6 cm AV Peak PG 5.6 mmHg LVIDs 2D 2.9 2.1 - 4.1 cm AI Peak PG 64.6 mmHg LVPWd 2D 1.2 0.6 - 1.1 cm AI Peak Harry 4.0 m/sec IVSd 2D 1.2 0.6 - 1.1 cm AI PHT 604.6 msec EDV 2D 90.9 cm3 LVOT Peak Harry 0.9 m/sec ESV 2D 23.4 cm3 LVOT Peak PG 3.0 mmHg LA Dimen 2D 5.1 2.3 - 4.0 cm TR Peak Harry 2.1 m/sec TR Peak PG 18.0 mmHg PV Peak Harry 1.1 m/sec PV Peak PG 5.0 mmHg RVSP 21.0 mmHg Findings Left Ventricle: Lower limits of normal systolic function. Normal left ventricular cavity size. Mild concentric left ventricular hypertrophy. Ejection fraction is visually estimated at 50 %. Tissue Doppler/Mitral Doppler indices are indeterminate in this study due to the presence of abnormal rhythm throughout exam. E/E`=10. Right Ventricle: Normal right ventricular size. Normal right ventricular systolic function. Left Atrium: There is severe enlargement of left atrium appreciated best by LV volumes. Right Atrium: The right atrium is normal in size. Atrial Septum: Normal atrial septum. Mitral Valve: Normal appearance of the mitral valve. Mild mitral annular calcification. Mild mitral valve regurgitation. Aortic Valve: No hemodynamically significant aortic stenosis by doppler. Aortic sclerosis without stenosis. Aortic cusps appear mildly calcified. Trileaflet aortic valve. Mild aortic valve regurgitation. Tricuspid Valve: Normal appearance of the tricuspid valve. Normal right ventricular systolic pressure. Estimated peak PA systolic pressure 21 mmHg. There is trace tricuspid regurgitation. Pulmonic Valve: Normal pulmonic valve appearance. There is trace pulmonic regurgitation. Pericardium: Normal pericardium with no significant pericardial effusion. Aorta: Normal aortic root. IVC: Normal size and normal respiratory collapse consistent with normal right atrial pressure. Pulmonary Artery: Normal pulmonary artery size. Conclusions 1.Lower limits of normal systolic function. Normal left ventricular cavity size. Mild concentric left ventricular hypertrophy. Ejection fraction is visually estimated at 50 %. Tissue Doppler/Mitral Doppler indices are indeterminate in this study due to the presence of abnormal rhythm throughout exam. E/E`=10. 2.Mild mitral valve regurgitation. 3.Mild aortic valve regurgitation. 4.Normal appearance of the tricuspid valve. Normal right ventricular systolic pressure. Estimated peak PA systolic pressure 21 mmHg. There is trace tricuspid regurgitation. 5.Normal pulmonic valve appearance. There is trace pulmonic regurgitation. Electronically Signed By: Marina Owens 22-Aug-2016 17:15:22 -0700 Patient Name: MAIA ALVAREZ Study Date: 22-Aug-2016 [id number]
[2016-08-23] VITALS (9 sets, daily range): BP systolic 100–134; BP diastolic 57–71; PULSE 68–86; RESP 16–18
[2016-08-23 06:56] LABS: ADD SCAN DIFF NO; BASOPHILS % 0.5 % (0.0-2.0); EOSINOPHILS # 0.3 10^3/ul (0.0-0.5); EOSINOPHILS % 3.4 % (0.0-7.0); HEMATOCRIT 31.8 % (37.0-47.0); LYMPHOCYTES # 1.6 10^3/ul (0.8-2.9); MEAN CORPUSCULAR HEMOGLOBIN 28.9 pg (29.0-33.0); MEAN CORPUSCULAR HGB CONC 31.4 g/dl (32.0-37.0); MEAN CORPUSCULAR VOLUME 91.9 fl (82.0-101.0); MEAN PLATELET VOLUME 12.9 fl (7.4-10.4); MONOCYTE # 0.9 10^3/ul (0.3-0.9); MONOCYTES % 10.9 % (0.0-11.0); NEUTROPHIL # 5.4 10^3/ul (1.6-7.5); PLATELET COUNT 215 10^3/UL (140-415); RED BLOOD COUNT 3.46 10^6/ul (4.20-5.40); RED CELL DISTRIBUTION WIDTH 13.6 % (11.5-14.5); WHITE BLOOD COUNT 8.2 10^3/ul (4.8-10.8)
[2016-08-23 07:08] LABS: INR 1.73; PROTIME 20.4 Sec (12.2-14.2); PT RATIO 1.6
[2016-08-23 07:21] LABS: CREATININE 1.46 mg/dl (0.44-1.00)
[2016-08-23 07:22] LABS: CALCIUM 8.9 mg/dl (8.4-10.2)
[2016-08-23] MEDS: FAMOTIDINE 20 MG TAB PO SCH (08:15)
[2016-08-23] MEDS: ASPIRIN (EC) 81 MG TAB PO SCH (08:15)
[2016-08-23] MEDS: ATORVASTATIN 40 MG TAB PO SCH (08:15)
[2016-08-23] MEDS: POTASSIUM CHLORIDE (SR) 20 MEQ TAB PO SCH (08:15)
[2016-08-23] MEDS: LISINOPRIL 5 MG TAB PO SCH (08:16)
[2016-08-23] MEDS: AMLODIPINE 2.5 MG TAB PO SCH (08:16)
[2016-08-23] MEDS ORDERED: FUROSEMIDE 40 MG INJ IV SCH (09:00)
--- NOTE | 2016-08-23 13:07 | CONS ---
Date/Time of Note Date/Time of Note DATE: 08/23/16 TIME: 13:03 Assessment/Plan Assessment/Plan Chief Complaint/Hosp Course IMPRESSION: 1. Atrial fibrillation, rate controlled. TSH WNL 2. Shortness of breath, lower extremity edema, assess for congestive heart failure. 3. Hypertension, under reasonable control. 4. Dyslipidemia.-LDL 32 HDL 68 5. Renal failure. 6. Anemia. 7. Borderline urinary tract infection. 8. CHF-diastolic acute on chronic LVEF 50% by echo this admit REcc: -Tele -serial ecg -Continue acei/CCB/BB -increase coumadin and f/u INR -Continue now daily lasix and follow family medicine resident closely Problems: Consultation Date/Type/Reason Admit Date/Time Aug 20, 2016 at 20:21 Initial Consult Date 08/21/2016 Type of Consultation: Cardiology Reason for Consultation AF Referring Provider: ASHLEY KAMINSKI MD Exam/Review of Systems Vital Signs Vitals Vital Signs Date Time Temp Pulse Resp B/P Pulse Ox O2 Delivery O2 Flow Rate FiO2 08/23/16 12:24 83 08/23/16 11:46 97.8 18 113/60 96 08/21/16 14:38 Room Air Intake and Output 08/22/16 08/22/16 08/23/16 15:00 23:00 07:00 Intake Total 1000 ml 300 ml Balance 1000 ml 300 ml Exam Review of Systems: CONSTITUTIONAL: No fevers, chills. PULMONARY: mild sob CARDIOVASCULAR: No chest pain/palpitations GASTROINTESTINAL: No nausea/vomiting. GENITOURINARY: No hematuria/dysuria. MUSCULOSKELETAL: No myagias/arthalgias. PSYCHIATRIC: The patient denies depression. NEUROLOGIC: No weakness Constitutional: alert Psych: no complaints Head: normocephalic ENMT: mucosa pink and moist Neck: jvd (9 cm water), supple Respiratory: diminished breath sounds (at bases/B) Cardiovascular: regular rate and rhythm Gastrointestinal: non-tender, soft Musculoskeletal: muscle tone (normal) Extremities: edema (none) Neurological: other (No focal deficits) Results Result Diagram: 08/23/16 0500 08/23/16 0555 Results 24 hrs Laboratory Tests Test 08/23/16 05:00 08/23/16 05:55 White Blood Count 8.2 Red Blood Count 3.46 L Hemoglobin 10.0 L Hematocrit 31.8 L Mean Corpuscular Volume 91.9 Mean Corpuscular Hemoglobin 28.9 L Mean Corpuscular Hemoglobin Concent 31.4 L Red Cell Distribution Width 13.6 Platelet Count 215 Mean Platelet Volume 12.9 H Neutrophils % 66.0 Lymphocytes % 19.0 Monocytes % 10.9 Eosinophils % 3.4 Basophils % 0.5 Nucleated Red Blood Cells % 0.0 Neutrophils # 5.4 Lymphocytes # 1.6 Monocytes # 0.9 Eosinophils # 0.3 Basophils # 0.0 Nucleated Red Blood Cells # 0.0 Prothrombin Time 20.4 H Prothrombin Time Ratio 1.6 INR International Normalized Ratio 1.73 Sodium Level 138 Potassium Level 4.0 Chloride Level 100 Carbon Dioxide Level 27 Anion Gap 15 Blood Urea Nitrogen 44 H Creatinine 1.46 H Glucose Level 112 Calcium Level 8.9 B-Type Natriuretic Peptide 2990 H Medications Medications Current Medications Amlodipine Besylate (Norvasc) 2.5 mg DAILY PO Last administered on 08/23/16 08 :16; Admin Dose 2.5 MG; Start 08/21/16 at 09:00 Aspirin (Halfprin) 81 mg DAILY PO Last administered on 08/23/16 08:15; Admin Dose 81 MG; Start 08/21/16 at 09:00 Atorvastatin Calcium (Lipitor) 40 mg DAILY PO Last administered on 08/23/16 08 :15; Admin Dose 40 MG; Start 08/21/16 at 09:00 Carvedilol (Coreg) 12.5 mg BID PO Last administered on 08/23/16 08:15; Admin Dose 12.5 MG; Start 08/21/16 at 09:00 Lisinopril (Zestril) 5 mg DAILY PO Last administered on 08/23/16 08:16; Admin Dose 5 MG; Start 08/21/16 at 09:00 Potassium Chloride (Klor-Con 20) 20 meq DAILY PO Last administered on 08:15; Admin Dose 20 MEQ; Start 08/21/16 at 09:00 Warfarin Sodium (Coumadin) 5 mg DAILY@17 PO Last administered on 08/22/16 17: 02; Admin Dose 5 MG; Start 08/21/16 at 17:00 Acetaminophen (Tylenol Tab) 650 mg Q6H PRN PO PAIN LEVEL 1-3 OR FEVER; Start at 14:30 Famotidine (Pepcid) 20 mg Q12 PO Last administered on 08/23/16 08:15; Admin Dose 20 MG; Start 08/21/16 at 21:00 Furosemide (Lasix) 40 mg DAILY IV Last administered on 08/23/16 08:16; Admin Dose 40 MG; Start 08/23/16 at 09:00 MARINA RIOS Aug 23, 2016 13:07
[2016-08-23] MEDS: WARFARIN 5 MG TAB PO SCH (17:44)
--- NOTE | 2016-08-23 18:06 | PDOCDIS ---
Discharge Instructions CONDITION Patient Condition: Good ACTIVITY: Activity Restrictions: Slowly Increase Activity FOLLOW UP/APPOINTMENTS Appointments f/u dr cevallos [address] kaminski 2 wks see pcp 1 wk ASHLEY KAMINSKI MD Aug 23, 2016 18:06
[2016-08-23] MEDS ORDERED: COU5 PO (18:09)
[2016-08-23] MEDS ORDERED: CARV12.579 PO (18:09)
[2016-08-23] MEDS ORDERED: FURO40TA4 PO (18:09)
--- NOTE | 2016-08-23 18:11 | PN ---
Date/Time of Note Date/Time of Note DATE: 08/23/16 TIME: 18:11 Assessment/Plan VTE Prophylaxis VTE Prophylaxis Intervention: other Lines/Catheters IV Catheter Type (from Nrsg): Saline Lock Assessment/Plan Chief Complaint/Hosp Course edema better cad afib ckd plan home Problems: Subjective 24 Hr Interval Summary Cardiovascular: no complaints Gastrointestinal: no complaints Exam/Review of Systems Vital Signs Vitals Vital Signs Date Time Temp Pulse Resp B/P Pulse Ox O2 Delivery O2 Flow Rate FiO2 08/23/16 16:10 68 08/23/16 16:00 98.2 17 131/71 96 08/21/16 14:38 Room Air Intake and Output 08/22/16 08/22/16 08/23/16 15:00 23:00 07:00 Intake Total 1000 ml 300 ml Balance 1000 ml 300 ml Exam Respiratory: clear to auscultation Cardiovascular: regular rate and rhythm Gastrointestinal: soft Results Result Diagram: 08/23/16 0500 08/23/16 0555 Results 24 hrs Laboratory Tests Test 08/23/16 05:00 08/23/16 05:55 White Blood Count 8.2 Red Blood Count 3.46 L Hemoglobin 10.0 L Hematocrit 31.8 L Mean Corpuscular Volume 91.9 Mean Corpuscular Hemoglobin 28.9 L Mean Corpuscular Hemoglobin Concent 31.4 L Red Cell Distribution Width 13.6 Platelet Count 215 Mean Platelet Volume 12.9 H Neutrophils % 66.0 Lymphocytes % 19.0 Monocytes % 10.9 Eosinophils % 3.4 Basophils % 0.5 Nucleated Red Blood Cells % 0.0 Neutrophils # 5.4 Lymphocytes # 1.6 Monocytes # 0.9 Eosinophils # 0.3 Basophils # 0.0 Nucleated Red Blood Cells # 0.0 Prothrombin Time 20.4 H Prothrombin Time Ratio 1.6 INR International Normalized Ratio 1.73 Sodium Level 138 Potassium Level 4.0 Chloride Level 100 Carbon Dioxide Level 27 Anion Gap 15 Blood Urea Nitrogen 44 H Creatinine 1.46 H Glucose Level 112 Calcium Level 8.9 B-Type Natriuretic Peptide 2990 H Medications Medications Current Medications Amlodipine Besylate (Norvasc) 2.5 mg DAILY PO Last administered on 08/23/16 08 :16; Admin Dose 2.5 MG; Start 08/21/16 at 09:00 Aspirin (Halfprin) 81 mg DAILY PO Last administered on 08/23/16 08:15; Admin Dose 81 MG; Start 08/21/16 at 09:00 Atorvastatin Calcium (Lipitor) 40 mg DAILY PO Last administered on 08/23/16 08 :15; Admin Dose 40 MG; Start 08/21/16 at 09:00 Carvedilol (Coreg) 12.5 mg BID PO Last administered on 08/23/16 08:15; Admin Dose 12.5 MG; Start 08/21/16 at 09:00 Lisinopril (Zestril) 5 mg DAILY PO Last administered on 08/23/16 08:16; Admin Dose 5 MG; Start 08/21/16 at 09:00 Potassium Chloride (Klor-Con 20) 20 meq DAILY PO Last administered on 08:15; Admin Dose 20 MEQ; Start 08/21/16 at 09:00 Acetaminophen (Tylenol Tab) 650 mg Q6H PRN PO PAIN LEVEL 1-3 OR FEVER; Start at 14:30 Famotidine (Pepcid) 20 mg Q12 PO Last administered on 08/23/16 08:15; Admin Dose 20 MG; Start 08/21/16 at 21:00 Furosemide (Lasix) 40 mg DAILY IV Last administered on 08/23/16 08:16; Admin Dose 40 MG; Start 08/23/16 at 09:00 Warfarin Sodium (Coumadin) 7.5 mg DAILY@17 PO ; Start 08/24/16 at 17:00 ASHLEY KAMINSKI MD Aug 23, 2016 18:11
--- NOTE | 2016-08-24 15:00 | RADRPT ---
Vent Rate: 73 bpm RR Interval: 0 msec SD Interval: 0 msec QRS Duration: 86 msec QT Interval: 394 msec QTC Interval: 434 msec P-R-T [place]: 0 - 2 - 23 degrees Atrial fibrillation with a competing junctional pacemaker ST abnormality, possible digitalis effect Abnormal ECG Electronically Signed By: Ryan Navarro [id number]
[2016-08-24] MEDS ORDERED: WARFARIN 7.5 MG TAB PO SCH (17:00)
--- NOTE | 2016-08-30 16:23 | QN ---
Documentation Comment [id number] ASHLEY KAMINSKI MD August 30, 2016 16:23
--- NOTE | 2016-08-30 19:27 | DS ---
DATE OF ADMISSION: 08/20/2016 DATE OF DISCHARGE: 08/23/2016 HOSPITAL COURSE: The patient was admitted with diagnoses of decompensated systolic heart failure, a cute kidney injury, hypertension, morbid obesity, atrial fibrillation, controlled. The patient had a 2D echo, shows the patient has ejection fraction 50%. The patient was seen by Dr. Owens in [facility], [place]. His impression and recommendations were followed. Dr. Owens' impression: Atrial fibr illation, rate controlled, short of breath, hypertension, dyslipidemia, renal failure, anemia, borde rline urinary tract infection. The patient is cleared to be discharged home. DISCHARGE DIAGNOSES: Include: 1. Coronary artery disease. 2. Atrial fibrillation. 3. Chronic kidney disease. 4. Lower extremity edema. 5. Normal ejection fraction. 6. Hypertension. 7. Dyslipidemia. 8. Anemia. 9. Urinary tract infection. DISCHARGE MEDICATIONS: To continue on: 1. Coumadin. 2. Amlodipine. 3. Aspirin. 4. Lipitor. 5. Coreg. 6. Lasix. 7. Glipizide. 8. Lisinopril. 9. Omeprazole. 10. Potassium. The patient to follow up with PCP and Dr. Owens as an outpatient. Dictated By: ASHLEY MALIK/JUSTO Conf#: [id number] DID#: [id number]
== END 2016-08-23 18:57 | disposition home or self-care (01) | DRG 291 ==
LOC: FTE 16:38 → TEL 20:21
PROVIDERS: ADMIT Internal Medicine Nephrology; ATTEND Internal Medicine Nephrology
DX: I13.0 Hypertensive heart and chronic kidney disease with heart failure and stage 1 through stage 4 chronic kidney disease, or unspecified chronic kidney disease (principal); I50.23 Acute on chronic systolic (congestive) heart failure; N17.9 Acute kidney failure, unspecified; N39.0 Urinary tract infection, site not specified; E66.01 Morbid (severe) obesity due to excess calories; I48.91 Unspecified atrial fibrillation; Z68.38 Body mass index [BMI] 38.0-38.9, adult; Z90.49 Acquired absence of other specified parts of digestive tract; Z90.710 Acquired absence of both cervix and uterus; I70.0 Atherosclerosis of aorta; E78.5 Hyperlipidemia, unspecified; R73.9 Hyperglycemia, unspecified; I25.10 Atherosclerotic heart disease of native coronary artery without angina pectoris; N18.9 Chronic kidney disease, unspecified; D64.9 Anemia, unspecified
CPT/HCPCS: 36415; 71010; 80048; 80053; 80061; 81001; 81003; 82550; 82553; 83036; 83690; 83880; 84443; 84484; 85025; 85610; 85730; 93005; 93306; 93970; 96374; 96375; J0696; J1940

== ENCOUNTER 2017-01-08 11:22 | Inpatient (IN) | payer MEDICARE, OTHER ==
[2017-01-08] VITALS (14 sets, daily range): BP systolic 103–158; BP diastolic 63–75; PULSE 70–112; RESP 15–21; Ht 152.4 cm; Wt 92.0 kg
[~2017-01-08] VITALS: Ht 152.4 cm; Wt 92.0 kg
[~2017-01-08 11:22] MED LIST changes: +AMLO2.5T78 PO; +ASPI-664 PO; +ATOR40TA68 PO; +CARV12.579 PO; +COU5 PO; -CYCL-319 PO; +FURO40TA4 PO; +GLIP5TAB13 PO; +LISI-313 PO; +OMEP20CA16 PO; +POTA20TA15 PO; -htn meds
[2017-01-08] MEDS ORDERED: ISOS60TA PO (11:39)
[2017-01-08] MEDS ORDERED: HYDR-3672 PO (11:39)
[2017-01-08] MEDS ORDERED: WARF5TAB72 PO (11:40)
[2017-01-08] MEDS ORDERED: FURO40TA4 PO (11:40)
[2017-01-08] MEDS ORDERED: CARV25TA97 PO (11:42)
[2017-01-08] MEDS ORDERED: METF500T4 PO (11:43)
[2017-01-08] MEDS ORDERED: OMEP20CA16 PO (11:43)
[2017-01-08] MEDS ORDERED: NITR0.4T6 SL (11:44)
[2017-01-08] MEDS ORDERED: CEFAZOLIN 1 GM/50 ML (PMX) 50 ML IVPB ONE (13:00)
[2017-01-08] MEDS ORDERED: POLYMYXIN/BACITRACIN 1L IRRIG ONE (13:07)
[2017-01-08] MEDS ORDERED: PROPOFOL 100 ML ONE (13:23)
[2017-01-08] MEDS ORDERED: LIDOCAINE 2% (SDV) 5 ML INJ ONE (13:23)
[2017-01-08] MEDS ORDERED: FENTAnyl 50 MCG/ML VIAL ONE (13:23)
[2017-01-08 13:39] LABS: BASOPHILS % 0.6 % (0.0-2.0); EOSINOPHILS # 0.1 10^3/ul (0.0-0.5); EOSINOPHILS % 2.2 % (0.0-7.0); HEMATOCRIT 28.2 % (37.0-47.0); HEMOGLOBIN 9.1 g/dl (12.0-16.0); LYMPHOCYTES # 0.9 10^3/ul (0.8-2.9); LYMPHOCYTES % 13.6 % (15.0-51.0); MEAN CORPUSCULAR HEMOGLOBIN 29.2 pg (29.0-33.0); MEAN CORPUSCULAR HGB CONC 32.3 g/dl (32.0-37.0); MEAN CORPUSCULAR VOLUME 90.4 fl (82.0-101.0); MEAN PLATELET VOLUME 11.5 fl (7.4-10.4); MONOCYTE # 0.6 10^3/ul (0.3-0.9); MONOCYTES % 9.1 % (0.0-11.0); NEUTROPHIL # 4.8 10^3/ul (1.6-7.5); NEUTROPHILS % 74.2 % (39.0-77.0); PLATELET COUNT 234 10^3/UL (140-415); RED BLOOD COUNT 3.12 10^6/ul (4.20-5.40); RED CELL DISTRIBUTION WIDTH 14.9 % (11.5-14.5); WHITE BLOOD COUNT 6.5 10^3/ul (4.8-10.8)
[2017-01-08 13:50] LABS: HOLD TRANSMISSIONS 1
[2017-01-08 14:00] LABS: INR 1.45; PROTIME 17.7 Sec (12.2-14.2); PT RATIO 1.4
[2017-01-08 14:02] LABS: PARTIAL THROMBOPLASTIN TIME 38.8 Sec (25.0-35.0)
[2017-01-08 14:05] LABS: CALCIUM 9.4 mg/dl (8.4-10.2); CREATININE 1.38 mg/dl (0.44-1.00); POTASSIUM 4.7 mmol/L (3.5-5.1)
--- NOTE | 2017-01-08 14:43 | SIPON ---
Date/Time of Note Date/Time of Note DATE: 01/08/17 TIME: 14:41 Operative Report Free Text/Dictation Dx: Tachy-mercedes [employer] VVi pacer implant set at 60, Full note dictated # [id number] thank ou Preoperative Diagnosis tachy-mercedes Syndrome Postoperative Diagnosis same Surgeon see signature line Anesthesia Type: MAC Estimated Blood Loss: none Transfusion Required: no Complications: no LAURO LOAIZA MD Jan 08, 2017 14:43
[2017-01-08] MEDS ORDERED: ALBUTEROL 0.083% (NEB) 2.5 MG/3 ML AMP HHN PRN (15:00)
[2017-01-08] MEDS ORDERED: ONDANSETRON 4 MG INJ IV PRN ×2 (15:00→15:30)
[2017-01-08] MEDS ORDERED: OXYCODONE/ACETAMINOPHEN (5/325) TAB PO PRN ×2 (15:00)
[2017-01-08] MEDS ORDERED: INSULIN ASPART [NOVOLOG] 3 ML PEN SC ONE (15:00)
[2017-01-08] MEDS ORDERED: LABETALOL HCL 20MG INJ IV PRN (15:00)
[2017-01-08] MEDS ORDERED: hydrALAzine 20 MG INJ IV PRN (15:00)
--- NOTE | 2017-01-08 15:18 | QN ---
Documentation Comment [id number] ASHLEY KAMINSKI MD Jan 08, 2017 15:18
[2017-01-08] MEDS ORDERED: ACETAMINOPHEN 650 MG SUPP PR PRN (15:30)
[2017-01-08] MEDS ORDERED: HYPOGLYCEMIA PROTOCOL when Glucose is <70 mg/dL or symptomatic <90 mg/dL. XX ONE (15:30)
[2017-01-08] MEDS ORDERED: NACL 0.9% 3 ML SYG IV SCH (15:30)
[2017-01-08] MEDS ORDERED: NITROGLYCERIN (SL) 0.4 MG TAB SL PRN (15:30)
[2017-01-08] MEDS ORDERED: DOCUSATE SODIUM 100 MG CAP PO PRN (15:30)
[2017-01-08] MEDS ORDERED: ACETAMINOPHEN 325 MG TAB PO PRN (15:30)
[2017-01-08] MEDS ORDERED: Discontinue current oral sulfonylureas (glyburide, glipizide, and/or glimepiride) prior to XX ONE (15:30)
[2017-01-08] MEDS ORDERED: HYDROCODONE/APAP (5/325) TAB PO PRN (15:30)
[2017-01-08] MEDS ORDERED: BISACODYL (EC) 5 MG TAB PO PRN (15:30)
[2017-01-08] MEDS ORDERED: MAGNESIUM HYDROXIDE 30ML CUP PO PRN (15:30)
[2017-01-08] MEDS ORDERED: GLUCAGON 1 MG INJ IM PRN (16:00)
[2017-01-08] MEDS ORDERED: GLUCOSE GEL 15 GRAM TUBE BUCCAL PRN (16:00)
[2017-01-08] MEDS ORDERED: DEXTROSE 50% 50 ML SYRINGE IV PRN ×2 (16:00)
[2017-01-08] MEDS ORDERED: GLUCOSE GEL 15 GRAM TUBE PO PRN ×2 (16:00)
--- NOTE | 2017-01-08 17:49 | HP ---
DATE OF ADMISSION: 01/08/2017 HISTORY OF PRESENT ILLNESS: The patient is an 81-year-old female who has history of congestive heart failure. The patient has a history of CAD, atrial fibrillation, CKD, history of normal ejection fraction, hypertension, dyslipidemia, and UTI. She underwent pacemaker placement with history of atrial fibrillation and is being seen post procedure. The patient is awake, alert, denies any nausea, vomiting, or chest pain. PAST MEDICAL HISTORY: Positive for hypertension, obesity, atrial fibrillation, CHF, history of UTI, normal ejection fraction, and dyslipidemia. ALLERGIES: NEGATIVE. FAMILY HISTORY: Negative. SOCIAL HISTORY: Negative. HOME MEDICATIONS: The patient was on Lipitor, Coreg, Lasix, glipizide, hydralazine, isosorbide, lisinopril, metformin, nitroglycerin, omeprazole, potassium chloride, and Coumadin. REVIEW OF SYSTEMS: HEENT: Unremarkable. RESPIRATORY: Unremarkable. CARDIOVASCULAR: Unremarkable. ABDOMEN: Unremarkable. EXTREMITY: Unremarkable. PHYSICAL EXAMINATION: GENERAL APPEARANCE: The patient is awake and alert. VITAL SIGNS: Pulse of 94, blood pressure 133/75. HEENT: Head is atraumatic, normocephalic. Pupils are reactive. NECK: Supple. LUNGS: Clear. CARDIAC: S1, S2 normal. ABDOMEN: Soft, obese. Normal bowel sounds. EXTREMITIES: No cyanosis, clubbing, or edema. TAX COLLECTOR: The patient is awake, alert, and moving both upper and lower extremities. SKIN: Left sided chest wall pacemaker noted. LABORATORY: Hematocrit 28.2. Sodium 124, BUN 21, and creatinine 1.38, IMPRESSION: 1. Pacemaker placement. 2. Atrial fibrillation. 3. Chronic kidney disease (CKD). 4. Anemia. 5. Dyslipidemia. PLAN: 1. Follow recommendation from Dr. Aparicio. 2. Continue sliding scale. 3. Home medications for blood pressure. 4. Medication of Coumadin will be resumed once cleared by Cardiology. Dictated By: Mateusz Ortiz MD /magali/ravinder /Document#: [id number]
[2017-01-08] MEDS: INSULIN ASPART [NOVOLOG] 3 ML PEN SC SCH ×2 (18:00→21:00)
--- NOTE | 2017-01-08 21:21 | PRO ---
DATE OF PROCEDURE: 01/08/2017 PROCEDURE PERFORMED: Single chamber pacemaker implantation per Vascular interpretation. REFERRING PHYSICIAN: Dr. Ortiz. REASON FOR IMPLANTATION: Tachybrady syndrome, atrial fibrillation, and bradycardia. POST PROCEDURE DIAGNOSIS: Tachybrady syndrome, atrial fibrillation, and bradycardia. DEVICE INFORMATION: Implanted device is a [employer] MRI pacemaker [employer] MRI 1272, serial number [id number]. RV lead is [employer] Medical Tendril MRI [id number], 58 cm lead [id number] placed in RV apex acute threshold. R wave was 6.8 mV, rate impedance 600 Ohms, capture 0.75 V of 0.4 milliseconds. Initial setting VVI. DESCRIPTION OF PROCEDURE: Informed consent was obtained. The left side of the chest was prepped and draped in usual sterile fashion using general anesthesia. Using number 10 scalpel a 3 cm incision was made using blunt dissection the pocket was created using times 2 and the vein was cannulated and J wire passed easily. An 8 Telugu sheath was used for guidance, RV lead passed easily into RV apex. The RV apex fixed and some slack was left inside the lead and the sheath was pulled away. The lead was sutured to the muscle layer with multiple layers of 2-0 Ethibond sutures. The lead was attached to the generator. The pocket was irrigated with antibiotic solution. The pacemaker was placed inside the pocket and the skin was closed with multiple layers of 2-0 Vicryl sutures. Steri Strips were placed on top of the incision. The patient will have postoperative chest x-ray to rule out hemothorax. She will have monitoring and continuous antibiotics. I will monitor her overnight and hopefully discharge home tomorrow with close followup. I would like to thank Dr. Ortiz for referring this patient for my evaluation. Dictated By: Santi Aparicio MD /magali/ravinder /Document#: [id number]
[2017-01-09] VITALS (10 sets, daily range): BP systolic 114–138; BP diastolic 58–93; PULSE 60–90; RESP 19–20
[2017-01-09] MEDS ORDERED: ACCU-CHEK XX SCH (02:00)
[2017-01-09 07:10] LABS: BASOPHILS % 0.4 % (0.0-2.0); EOSINOPHILS # 0.1 10^3/ul (0.0-0.5); HEMATOCRIT 27.5 % (37.0-47.0); HEMOGLOBIN 8.8 g/dl (12.0-16.0); LYMPHOCYTES # 0.9 10^3/ul (0.8-2.9); LYMPHOCYTES % 12.3 % (15.0-51.0); MEAN CORPUSCULAR HEMOGLOBIN 28.6 pg (29.0-33.0); MEAN CORPUSCULAR VOLUME 89.3 fl (82.0-101.0); MEAN PLATELET VOLUME 11.6 fl (7.4-10.4); MONOCYTE # 0.7 10^3/ul (0.3-0.9); MONOCYTES % 9.7 % (0.0-11.0); NEUTROPHIL # 5.4 10^3/ul (1.6-7.5); NEUTROPHILS % 75.5 % (39.0-77.0); PLATELET COUNT 226 10^3/UL (140-415); RED BLOOD COUNT 3.08 10^6/ul (4.20-5.40); RED CELL DISTRIBUTION WIDTH 14.9 % (11.5-14.5); WHITE BLOOD COUNT 7.1 10^3/ul (4.8-10.8)
[2017-01-09 07:32] LABS: ALBUMIN 3.2 g/dl (3.3-4.9); ALBUMIN/GLOBULIN RATIO 1.1; BILIRUBIN,INDIRECT 0.3 mg/dl (0-1.1); BILIRUBIN,TOTAL 0.3 mg/dl (0.2-1.3); CALCIUM 9.3 mg/dl (8.4-10.2); CREATININE 1.55 mg/dl (0.44-1.00); POTASSIUM 4.9 mmol/L (3.5-5.1); TOTAL PROTEIN 6.1 g/dl (6.1-8.1)
[2017-01-09] MEDS: INSULIN ASPART [NOVOLOG] 3 ML PEN SC SCH ×2 (07:55→11:39)
[2017-01-09] MEDS ORDERED: FUROSEMIDE 40 MG TAB PO SCH (09:00)
[2017-01-09] MEDS ORDERED: LISINOPRIL 5 MG TAB PO SCH (09:00)
[2017-01-09] MEDS ORDERED: ENOXAPARIN 40 MG/0.4 ML SYG SC SCH (09:00)
[2017-01-09] MEDS ORDERED: ISOSORBIDE MONONITRATE(SR)60 MG TAB PO SCH (09:00)
[2017-01-09] MEDS ORDERED: POTASSIUM CHLORIDE (SR) 20 MEQ TAB PO SCH (09:00)
[2017-01-09] MEDS ORDERED: ATORVASTATIN 40 MG TAB PO SCH (09:00)
--- NOTE | 2017-01-09 13:52 | CONS ---
Date/Time of Note Date/Time of Note DATE: 01/09/17 TIME: 13:50 Assessment/Plan Assessment/Plan Additional Assessment/Plan 1. Pacemaker placement- post op now, doing well - dressing changed - OK to resume coumadin. 2. Atrial fibrillation- rate better - add BB now. 3. Chronic kidney disease (CKD)- Dr. Ortiz follows - avoid nephrotoxic meds now. 4. Anemia- no active bleed now - resume coumadin. 5. Dyslipidemia. Consultation Date/Type/Reason Admit Date/Time Jan 08, 2017 at 17:02 Initial Consult Date 24 HR Interval Summary Free Text/Dictation NO acute events - BP stable - site looks well. ROS: No fever, no chills, no nausea, no vomiting, no diarrhea/constipation No recent weight changes No chest pain, no PND, no orthopnea No dizziness, blurred vision No thirst, no heat or cold intolerance Exam/Review of Systems Vital Signs Vitals Vital Signs Date Time Temp Pulse Resp B/P Pulse Ox O2 Delivery O2 Flow Rate FiO2 01/09/17 11:12 98.5 61 20 114/61 96 01/08/17 14:49 Room Air Intake and Output 01/08/17 01/08/17 01/09/17 15:00 23:00 07:00 Intake Total 220 ml 360 ml Balance 220 ml 360 ml Exam General: WN/WD/NAD, AOx 3 HEENT: Unicetric/atraumatic/EOMI (follows commands) NECK: JVD elevated, no thyromegaly Lymph: no lymphadenopathy HEART: Ir Irregular with no S3, II/ systolic murmur at apex LUNGS: Coarse sounds ABD: soft, NT, ND, +BS : Intact Neuro: non focal SKIN: chronic changes EXT: trace edema Results Result Diagram: 01/09/1761301/09/1714 Results 24 hrs Laboratory Tests Test 01/08/17 17:49 01/08/17 20:40 01/09/17 06:14 01/09/17 08:13 Bedside Glucose 90 116 97 White Blood Count 7.1 Red Blood Count 3.08 L Hemoglobin 8.8 L Hematocrit 27.5 L Mean Corpuscular Volume 89.3 Mean Corpuscular Hemoglobin 28.6 L Mean Corpuscular Hemoglobin Concent 32.0 Red Cell Distribution Width 14.9 H Platelet Count 226 Mean Platelet Volume 11.6 H Neutrophils % 75.5 Lymphocytes % 12.3 L Monocytes % 9.7 Eosinophils % 2.0 Basophils % 0.4 Nucleated Red Blood Cells % 0.0 Neutrophils # 5.4 Lymphocytes # 0.9 Monocytes # 0.7 Eosinophils # 0.1 Basophils # 0.0 Nucleated Red Blood Cells # 0.0 Sodium Level 133 L Potassium Level 4.9 Chloride Level 102 Carbon Dioxide Level 26 Anion Gap 10 Blood Urea Nitrogen 34 H Creatinine 1.55 H Glucose Level 94 Calcium Level 9.3 Total Bilirubin 0.3 Direct Bilirubin 0.00 Indirect Bilirubin 0.3 Aspartate Amino Transf (AST/SGOT) 19 Alanine Aminotransferase (ALT/SGPT) 30 Alkaline Phosphatase 91 Total Protein 6.1 Albumin 3.2 L Globulin 2.90 Albumin/Globulin Ratio 1.10 Test 01/09/17 11:38 Bedside Glucose 137 Medications Medications Current Medications Atorvastatin Calcium (Lipitor) 40 mg DAILY PO Last administered on 01/09/17 08 :16; Admin Dose 40 MG; Start 01/09/17 at 09:00 Carvedilol (Coreg) 25 mg BID PO Last administered on 01/09/17 08:16; Admin Dose 25 MG; Start 01/08/17 at 21:00 Furosemide (Lasix) 40 mg DAILY PO Last administered on 01/09/17 08:16; Admin Dose 40 MG; Start 01/09/17 at 09:00 Hydralazine HCl (Apresoline) 50 mg TID PO Last administered on 01/09/17 13:10 ; Admin Dose 50 MG; Start 01/08/17 at 21:00 Isosorbide Mononitrate (Imdur) 60 mg DAILY PO Last administered on 01/09/17 08 :16; Admin Dose 60 MG; Start 01/09/17 at 09:00 Lisinopril (Zestril) 5 mg DAILY PO Last administered on 01/09/17 08:15; Admin Dose 5 MG; Start 01/09/17 at 09:00 Nitroglycerin (Nitroglycerin (Sl Tab) 0.4 Mg) 0.4 tab [id number] PRN SL CHEST PAIN; Start 01/08/17 at 15:30 Potassium Chloride (Klor-Con 20) 20 meq DAILY PO ; Start 01/09/17 at 09:00 Ondansetron HCl (Zofran Inj) 4 mg Q6H PRN IV NAUSEA AND/OR VOMITING; Start at 15:30 Acetaminophen (Tylenol Tab) 650 mg Q6H PRN PO PAIN LEVEL 1-3 OR FEVER Last administered on 01/09/17 00:27; Admin Dose 650 MG; Start 01/08/17 at 15:30 Acetaminophen (Tylenol Supp) 650 mg Q6H PRN LA PAIN LEVEL 1-3 OR FEVER; Start 01/08/17 at 15:30 Acetaminophen/ Hydrocodone Bitart ([place] (5/325)) 1 tab Q6H PRN PO MODERATE PAIN LEVEL 4-6 Last administered on 01/09/17 09:36; Admin Dose 1 TAB; Start at 15:30 Docusate Sodium (Colace) 100 mg Q12H PRN PO CONSTIPATION; Start 01/08/17 at 15: 30 Magnesium Hydroxide (Milk Of Mag) 30 ml DAILY PRN PO CONSTIPATION; Start at 15:30 Bisacodyl (Dulcolax) 5 mg DAILY PRN PO CONSTIPATION; Start 01/08/17 at 15:30 Enoxaparin Sodium (Lovenox) 40 mg DAILY SC Last administered on 01/09/17 08:19 ; Admin Dose 40 MG; Start 01/09/17 at 09:00 Diagnostic Test (Pha) (Accu-Chek) 1 ea 02 XX ; Start 01/09/17 at 02:00 Miscellaneous Information 1 ea NOTE XX ; Start 01/08/17 at 16:00 Glucose (Glutose) 15 gm Q15M PRN PO DECREASED GLUCOSE; Start 01/08/17 at 16:00 Glucose (Glutose) 22.5 gm Q15M PRN PO DECREASED GLUCOSE; Start 01/08/17 at 16: 00 Dextrose (D50w Syringe) 25 ml Q15M PRN IV DECREASED GLUCOSE; Start 01/08/17 at 16:00 Dextrose (D50w Syringe) 50 ml Q15M PRN IV DECREASED GLUCOSE; Start 01/08/17 at 16:00 Glucagon (Glucagen) 1 mg Q15M PRN IM DECREASED GLUCOSE; Start 01/08/17 at 16:00 Glucose (Glutose) 15 gm Q15M PRN BUCCAL DECREASED GLUCOSE; Start 01/08/17 at 16 :00 LAURO LOAIZA MD Jan 09, 2017 13:52
--- NOTE | 2017-01-09 14:47 | PN ---
Date/Time of Note Date/Time of Note DATE: 01/09/17 TIME: 14:47 Assessment/Plan VTE Prophylaxis VTE Prophylaxis Intervention: ambulation Lines/Catheters IV [facility] [place] [facility] Urinary Cath still in place: No Assessment/Plan Chief Complaint/Hosp Course 1. Pacemaker placement. 2. Atrial fibrillation. 3. Chronic kidney disease, mild. 4. Anemia. 5. Dyslipidemia. 6, Morbid obesity Problems: Assessment/Plan 1. Optimization kidney function 2. continue current regime 3. Discharge home 4. family reported they do not need any prescriptions Subjective 24 Hr Interval Summary Constitutional: improved, no complaints Exam/Review of Systems Vital Signs Vitals Vital Signs Date Time Temp Pulse Resp B/P Pulse Ox O2 Delivery O2 Flow Rate FiO2 01/09/17 12:05 78 01/09/17 11:12 98.5 20 114/61 96 01/08/17 14:49 Room Air Intake and Output 01/08/17 01/08/17 01/09/17 15:00 23:00 07:00 Intake Total 220 ml 360 ml Balance 220 ml 360 ml Exam Constitutional: alert, oriented Neck: supple Respiratory: clear to auscultation Gastrointestinal: soft Musculoskeletal: nl extremities to inspection Skin: other (new pacemaker) Results Result Diagram: 01/09/1714 01/09/1714 Results 24 hrs Laboratory Tests Test 01/08/17 17:49 01/08/17 20:40 01/09/17 06:14 01/09/17 08:13 Bedside Glucose 90 116 97 White Blood Count 7.1 Red Blood Count 3.08 L Hemoglobin 8.8 L Hematocrit 27.5 L Mean Corpuscular Volume 89.3 Mean Corpuscular Hemoglobin 28.6 L Mean Corpuscular Hemoglobin Concent 32.0 Red Cell Distribution Width 14.9 H Platelet Count 226 Mean Platelet Volume 11.6 H Neutrophils % 75.5 Lymphocytes % 12.3 L Monocytes % 9.7 Eosinophils % 2.0 Basophils % 0.4 Nucleated Red Blood Cells % 0.0 Neutrophils # 5.4 Lymphocytes # 0.9 Monocytes # 0.7 Eosinophils # 0.1 Basophils # 0.0 Nucleated Red Blood Cells # 0.0 Sodium Level 133 L Potassium Level 4.9 Chloride Level 102 Carbon Dioxide Level 26 Anion Gap 10 Blood Urea Nitrogen 34 H Creatinine 1.55 H Glucose Level 94 Calcium Level 9.3 Total Bilirubin 0.3 Direct Bilirubin 0.00 Indirect Bilirubin 0.3 Aspartate Amino Transf (AST/SGOT) 19 Alanine Aminotransferase (ALT/SGPT) 30 Alkaline Phosphatase 91 Total Protein 6.1 Albumin 3.2 L Globulin 2.90 Albumin/Globulin Ratio 1.10 Test 01/09/17 11:38 Bedside Glucose 137 Medications Medications Current Medications Atorvastatin Calcium (Lipitor) 40 mg DAILY PO Last administered on 01/09/17 08 :16; Admin Dose 40 MG; Start 01/09/17 at 09:00 Carvedilol (Coreg) 25 mg BID PO Last administered on 01/09/17 08:16; Admin Dose 25 MG; Start 01/08/17 at 21:00 Furosemide (Lasix) 40 mg DAILY PO Last administered on 01/09/17 08:16; Admin Dose 40 MG; Start 01/09/17 at 09:00 Hydralazine HCl (Apresoline) 50 mg TID PO Last administered on 01/09/17 13:10 ; Admin Dose 50 MG; Start 01/08/17 at 21:00 Isosorbide Mononitrate (Imdur) 60 mg DAILY PO Last administered on 01/09/17 08 :16; Admin Dose 60 MG; Start 01/09/17 at 09:00 Lisinopril (Zestril) 5 mg DAILY PO Last administered on 01/09/17 08:15; Admin Dose 5 MG; Start 01/09/17 at 09:00 Nitroglycerin (Nitroglycerin (Sl Tab) 0.4 Mg) 0.4 tab [id number] PRN SL CHEST PAIN; Start 01/08/17 at 15:30 Potassium Chloride (Klor-Con 20) 20 meq DAILY PO ; Start 01/09/17 at 09:00 Ondansetron HCl (Zofran Inj) 4 mg Q6H PRN IV NAUSEA AND/OR VOMITING; Start at 15:30 Acetaminophen (Tylenol Tab) 650 mg Q6H PRN PO PAIN LEVEL 1-3 OR FEVER Last administered on 01/09/17 00:27; Admin Dose 650 MG; Start 01/08/17 at 15:30 Acetaminophen (Tylenol Supp) 650 mg Q6H PRN NE PAIN LEVEL 1-3 OR FEVER; Start 01/08/17 at 15:30 Acetaminophen/ Hydrocodone Bitart ([place] (5/325)) 1 tab Q6H PRN PO MODERATE PAIN LEVEL 4-6 Last administered on 01/09/17 09:36; Admin Dose 1 TAB; Start at 15:30 Docusate Sodium (Colace) 100 mg Q12H PRN PO CONSTIPATION; Start 01/08/17 at 15: 30 Magnesium Hydroxide (Milk Of Mag) 30 ml DAILY PRN PO CONSTIPATION; Start at 15:30 Bisacodyl (Dulcolax) 5 mg DAILY PRN PO CONSTIPATION; Start 01/08/17 at 15:30 Enoxaparin Sodium (Lovenox) 40 mg DAILY SC Last administered on 01/09/17 08:19 ; Admin Dose 40 MG; Start 01/09/17 at 09:00 Diagnostic Test (Pha) (Accu-Chek) 1 ea 02 XX ; Start 01/09/17 at 02:00 Miscellaneous Information 1 ea NOTE XX ; Start 01/08/17 at 16:00 Glucose (Glutose) 15 gm Q15M PRN PO DECREASED GLUCOSE; Start 01/08/17 at 16:00 Glucose (Glutose) 22.5 gm Q15M PRN PO DECREASED GLUCOSE; Start 01/08/17 at 16: 00 Dextrose (D50w Syringe) 25 ml Q15M PRN IV DECREASED GLUCOSE; Start 01/08/17 at 16:00 Dextrose (D50w Syringe) 50 ml Q15M PRN IV DECREASED GLUCOSE; Start 01/08/17 at 16:00 Glucagon (Glucagen) 1 mg Q15M PRN IM DECREASED GLUCOSE; Start 01/08/17 at 16:00 Glucose (Glutose) 15 gm Q15M PRN BUCCAL DECREASED GLUCOSE; Start 01/08/17 at 16 :00 WADE AGUIAR Jan 09, 2017 14:47
--- NOTE | 2017-01-09 15:11 | PDOCDIS ---
Discharge Instructions DIAGNOSIS Discharge Diagnosis S/p pacemaker placement CONDITION Patient Condition: Good HOME CARE INSTRUCTIONS: Diet Instructions: Low Fat /CholesterolSpecial Diet: Carb control ACTIVITY: Activity Restrictions: Slowly Increase Activity Bathing Restrictions: Sponge Bath FOLLOW UP/APPOINTMENTS Follow-up Plan [address] Aparicio SCHOOL/WORK RELEASE May return to School/Work with: With Restrictions (do not raise the left arm aboveshoulder for 1 week) WADE AGUIAR Jan 09, 2017 15:11
[2017-01-10] MEDS ORDERED: ENOXAPARIN 30 MG/0.3 ML SYG SC SCH (09:00)
--- NOTE | 2017-01-10 13:42 | DS ---
Date/Time of Note Date/Time of Note DATE: 01/10/17 TIME: 13:41 Discharge Summary Admission/Discharge Info Admit Date/Time Jan 08, 2017 at 17:02 Discharge Date/Time Jan 09, 2017 at 17:09 Discharge Diagnosis S/p pacemaker placement Patient Condition: Good Consults Dr Aparicio cardiology Procedures Pacemaker placement Hx of Present Illness 81-year-old female with history of congestive heart failure was admitted to [facility]. The patient has a history of CAD, atrial fibrillation, mild CKD, history of normal ejection fraction, hypertension, dyslipidemia, and UTI. 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 She tolerated procedure well. Was seen post procedure. The patient is awake, alert, denies any nausea, vomiting, or chest pain. Dr Green also saw pt after procedure, he changed dressing and ordered to resume Coumadin. No active bleeding was seen and pt was discharged home with same home medications except nephrotoxic Amlodipine. Hospital Course 1. Pacemaker placement. 2. Atrial fibrillation. 3. Chronic kidney disease, mild. 4. Anemia. 5. Dyslipidemia. 6, Morbid obesity Home Meds Reported Medications Nitroglycerin* (Nitroglycerin* SL) 0.4 Mg Tab.subl, 0.4 MG SL Q5MIN Y for CHEST PAIN, BOTTLE 01/08/17 Omeprazole* (Omeprazole*) 20 Mg Capsule., 20 MG PO DAILY, #30 CAP 01/08/17 Metformin* (Glucophage*) 500 Mg Tab, 500 MG PO DAILY, #30 TAB 01/08/17 Carvedilol* (Coreg*) 25 Mg Tablet, 25 MG PO BID, #60 TAB 01/08/17 Furosemide* (Furosemide*) 40 Mg Tablet, 40 MG PO DAILY, TAB 01/08/17 Warfarin Sodium* (Coumadin*) 5 Mg Tablet, 5 MG PO DAILY, TAB 01/08/17 Isosorbide Mononitrate* (Isosorbide Mononitrate*) 60 Mg Tab.er.24h, 60 MG PO DAILY, TAB 01/08/17 Hydralazine Hcl* (Hydralazine Hcl*) 50 Mg Tab, 50 MG PO TID, #60 TAB 01/08/17 Glipizide* (Glipizide*) 5 Mg Tablet, 5 MG PO DAILY, TAB 08/20/16 Atorvastatin* (Atorvastatin*) 40 Mg Tablet, 40 MG PO DAILY, #30 TAB 08/20/16 Lisinopril* (Lisinopril*) 5 Mg Tablet, 5 MG PO DAILY, #30 TAB 08/20/16 Potassium Chloride* (K-Dur*) 20 Meq Tab.prt.sr, 20 MEQ PO DAILY, TAB.SA 08/20/16 Discontinued Reported Medications Amlodipine Besylate* (Amlodipine Besylate*) 2.5 Mg Tablet, 2.5 MG PO DAILY, #30 TAB 08/20/16 Aspirin* (Aspirin* EC) 81 Mg Tablet.dr, 81 MG PO DAILY, TAB 08/20/16 Omeprazole* (Omeprazole*) 20 Mg Capsule.dr, 20 MG PO DAILY, #30 CAP 08/20/16 Discontinued Scripts Warfarin Sod (Coumadin) 5 Mg Tab, 6 MG PO DAILY@17 for 28 Days, TAB Prov:ASHLEY KAMINSKI MD 08/23/16 Furosemide* (Furosemide*) 40 Mg Tablet, 40 MG PO DAILY for 28 Days, TAB Prov:ASHLEY KAMINSKI MD 08/23/16 Carvedilol* (Carvedilol*) 12.5 Mg Tablet, 12.5 MG PO BID for 28 Days, #60 TAB Prov:ASHLEY KAMINSKI MD 08/23/16 Follow-up Plan [address] Aparicio Primary Care Provider WADE Lunsford Jan 10, 2017 13:42
== END 2017-01-09 17:09 | disposition home or self-care (01) | DRG 244 ==
LOC: SDS 11:22 → TEL 12:55 → SDS 12:55 → OBSVTOIN 17:02 → TEL 17:04
PROVIDERS: ADMIT Internal Medicine Clinical Cardiac Electrophysiology; ATTEND Internal Medicine Clinical Cardiac Electrophysiology
PROC: 02HK3JZ Insertion of Pacemaker Lead into Right Ventricle, Percutaneous Approach (ICD-10-PCS; 2017-01-08)
PROC: 0JH604Z Insertion of Pacemaker, Single Chamber into Chest Subcutaneous Tissue and Fascia, Open Approach (ICD-10-PCS; principal; 2017-01-08 13:30)
DX: I49.5 Sick sinus syndrome (principal); I48.91 Unspecified atrial fibrillation; D64.9 Anemia, unspecified; E78.5 Hyperlipidemia, unspecified; N18.9 Chronic kidney disease, unspecified; E66.9 Obesity, unspecified; Z68.39 Body mass index [BMI] 39.0-39.9, adult
CPT/HCPCS: 80048; 80053; 82962; 85025; 85610; 85730; G0378; C1786; C1898; J1650; J1815; J3010

== ENCOUNTER 2017-02-13 23:44 | Inpatient (IN) | payer MEDICARE, OTHER ==
[~2017-02-13] VITALS: Ht 160 cm; Wt 105.0 kg
[~2017-02-13 23:44] MED LIST changes: -AMLO2.5T78 PO; -ASPI-664 PO; -CARV12.579 PO; +CARV25TA97 PO; -COU5 PO; +HYDR-3672 PO; +ISOS60TA PO; +METF500T4 PO; +NITR0.4T32 SL; +WARF5TAB72 PO
[2017-02-13 23:50] VITALS: Ht 160 cm; Wt 105.0 kg
[2017-02-14] VITALS (8 sets, daily range): BP systolic 141–177; BP diastolic 75–93; PULSE 73–90; RESP 18–20; TEMP 98.3
[2017-02-14 02:43] LABS: BASOPHILS % 0.4 % (0.0-2.0); EOSINOPHILS # 0.1 10^3/ul (0.0-0.5); HEMATOCRIT 26.4 % (37.0-47.0); HEMOGLOBIN 8.4 g/dl (12.0-16.0); LYMPHOCYTES # 0.8 10^3/ul (0.8-2.9); MEAN CORPUSCULAR HEMOGLOBIN 28.6 pg (29.0-33.0); MEAN CORPUSCULAR HGB CONC 31.8 g/dl (32.0-37.0); MEAN CORPUSCULAR VOLUME 89.8 fl (82.0-101.0); MEAN PLATELET VOLUME 10.9 fl (7.4-10.4); MONOCYTE # 0.8 10^3/ul (0.3-0.9); MONOCYTES % 7.6 % (0.0-11.0); NEUTROPHIL # 8.6 10^3/ul (1.6-7.5); NEUTROPHILS % 82.4 % (39.0-77.0); PLATELET COUNT 271 10^3/UL (140-415); RED BLOOD COUNT 2.94 10^6/ul (4.20-5.40); RED CELL DISTRIBUTION WIDTH 14.5 % (11.5-14.5); WHITE BLOOD COUNT 10.5 10^3/ul (4.8-10.8)
[2017-02-14 03:02] LABS: ANION GAP 13 (8-16); BLOOD UREA NITROGEN 22 mg/dl (7-20); CALCIUM 8.7 mg/dl (8.4-10.2); CARBON DIOXIDE 26 mmol/L (21-31); CHLORIDE 97 mmol/L (97-110); CREATININE 1.46 mg/dl (0.44-1.00); GLUCOSE 85 mg/dl (70-220); POTASSIUM 5.3 mmol/L (3.5-5.1); SODIUM 131 mmol/L (135-144)
--- NOTE | 2017-02-14 03:02 | RADRPT ---
PROCEDURE: XR Chest. CLINICAL INDICATION: Chest pain. TECHNIQUE: Single frontal chest x-ray. COMPARISON: 08/20/2016 FINDINGS: Left subclavian single lead pacemaker is present. Heart is enlarged. There are atherosclerotic calci fications of the aortic knob.. The pulmonary vessels are top normal in caliber.. There is no pleur al effusion. There is no pneumothorax. Bones are unchanged. There degenerate changes of the thorac ic spine.. IMPRESSION: Cardiomegaly. Pulmonary vessels top normal in caliber. RPTAT: HMVK .Ryan Moura MD, Date Time Electronically viewed and signed by .Ryan Moura MD, on 02/14/2017 03:02 .K/
[2017-02-14 03:36] LABS: TROPONIN-I < 0.012 ng/ml (0.00-0.12)
--- NOTE | 2017-02-14 03:51 | ERD ---
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 Patient is a poor historian with regards to the timing and severity and character of pain. According to the patient's granddaughter, she complained of worst pain at 9 PM but then stated that it subsided. At 11 PM she stated that the pain again became severe. The patient states that it hurts when she sits up and takes a deep breath. She reports feeling short of breath. She denies vomiting. She denies coughing. ROS All systems reviewed and are negative except as per history of present illness. Medications Home Meds Reported Medications Nitroglycerin* (Nitroglycerin* SL) 0.4 Mg Tab.subl, 0.4 MG SL Q5MIN Y for CHEST PAIN, BOTTLE 01/08/17 Omeprazole* (Omeprazole*) 20 Mg Capsule.dr, 20 MG PO DAILY, #30 CAP 01/08/17 Metformin* (Glucophage*) 500 Mg Tab, 500 MG PO DAILY, #30 TAB 01/08/17 Carvedilol* (Coreg*) 25 Mg Tablet, 25 MG PO BID, #60 TAB 01/08/17 Furosemide* (Furosemide*) 40 Mg Tablet, 40 MG PO DAILY, TAB 01/08/17 Warfarin Sodium* (Coumadin*) 5 Mg Tablet, 5 MG PO DAILY, TAB 01/08/17 Isosorbide Mononitrate* (Isosorbide Mononitrate*) 60 Mg Tab.er.24h, 60 MG PO DAILY, TAB 01/08/17 Hydralazine Hcl* (Hydralazine Hcl*) 50 Mg Tab, 50 MG PO TID, #60 TAB 01/08/17 Glipizide* (Glipizide*) 5 Mg Tablet, 5 MG PO DAILY, TAB 08/20/16 Atorvastatin* (Atorvastatin*) 40 Mg Tablet, 40 MG PO DAILY, #30 TAB 08/20/16 Lisinopril* (Lisinopril*) 5 Mg Tablet, 5 MG PO DAILY, #30 TAB 08/20/16 Potassium Chloride* (K-Dur*) 20 Meq Tab.prt.sr, 20 MEQ PO DAILY, TAB.SA 08/20/16 Allergies Allergies: Coded Allergies: No Known Allergy (Unverified , 01/08/17) PMhx/Soc Past medical history: Diabetes, hypertension, CHF Past surgical history: Pacemaker Social history: Never smoker, no alcohol History of Surgery: Yes (CHOLECYSTECTOMY,L CHEST PACEMAKER PLACEMENT) Anesthesia Reaction: No Hx Neurological Disorder: No Hx Respiratory Disorders: Yes (ASTHMA) Hx Cardiac Disorders: Yes (HTN, AFIB, SINUS RONAN) Hx Psychiatric Problems: No Hx Miscellaneous Medical Probl: No (DIABETES) Hx Alcohol Use: No Hx Substance Use: No Hx Tobacco Use: No Smoking Status: Never smoker FmHx Noncontributory Physical Exam Vitals Vital Signs Date Time Temp Pulse Resp B/P Pulse Ox O2 Delivery O2 Flow Rate FiO2 02/14/17 06:00 98.8 81 18 155/89 96 Room Air 02/14/17 05:00 87 21 169/84 97 Room Air 02/14/17 04:00 87 24 156/80 99 Room Air 02/14/17 03:00 87 20 140/67 97 Room Air 02/14/17 02:00 91 27 140/86 99 Room Air 02/14/17 01:56 110 25 171/89 99 Room Air 02/13/17 23:50 98.5 98 18 184/91 96 Physical Exam Const: Alert, no acute distress Head: Atraumatic Eyes: Normal Conjunctiva, No pallor, no icterus ENT: Normal External Ears, Nose and Mouth. Mucous membranes moist Neck: Full range of motion..~ No meningismus. Resp: Clear to auscultation bilaterall, Mild tachypnea, no wheezes, no rales, Cardio: Irregularly irregular rhythm, normal rate, no murmurs Abd: Soft, non tender, non distended. Rectal: Brown stool, no blood, glost placer present Skin: No petechiae or rashes Back: No midline or flank tenderness Ext: No cyanosis, or edema Neur: Awake and alert, Cranial nerves II through XII intact bilaterally, strength and sensation full in 4 extremities. Psych: Normal Mood and Affect Result Diagram: 02/14/1721402/14/17214 Results 24 hrs Laboratory Tests Test 02/14/17 02:11 02/14/17 02:15 Prothrombin Time 15.8Sec Prothrombin Time Ratio 1.2 INR International Normalized Ratio 1.25 Activated Partial Thromboplast Time 41.7Sec D-Dimer 1185.77ng/ml D-Dimer Comment B-Type Natriuretic Peptide 7460PG/ML White Blood Count 10.510^3/ul Red Blood Count 2.9410^6/ul Hemoglobin 8.4g/dl Hematocrit 26.4% Mean Corpuscular Volume 89.8fl Mean Corpuscular Hemoglobin 28.6pg Mean Corpuscular Hemoglobin Concent 31.8g/dl Red Cell Distribution Width 14.5% Platelet Count 77705^3/UL Mean Platelet Volume 10.9fl Neutrophils % 82.4% Lymphocytes % 8.0% Monocytes % 7.6% Eosinophils % 1.0% Basophils % 0.4% Nucleated Red Blood Cells % 0.0/100WBC Neutrophils # 8.610^3/ul Lymphocytes # 0.810^3/ul Monocytes # 0.810^3/ul Eosinophils # 0.110^3/ul Basophils # 0.010^3/ul Nucleated Red Blood Cells # 0.010^3/ul Sodium Level 131mmol/L Potassium Level 5.3mmol/L Chloride Level 97mmol/L Carbon Dioxide Level 26mmol/L Anion Gap 13 Blood Urea Nitrogen 22mg/dl Creatinine 1.46mg/dl Glucose Level 85mg/dl Calcium Level 8.7mg/dl Troponin I < 0.012ng/ml Current Medications Medications (Trade) Dose Ordered Sig/Shalonda Route PRN Reason Start Time Stop Time Status Last Admin Dose Admin Aspirin (Aspirin) 162 mg ONCE ONCE PO 02/14/17 04:00 02/14/17 04:01 DC 02/14/17 03:53 Furosemide (Lasix) 20 mg ONCE ONCE IV 02/14/17 06:00 02/14/17 06:01 DC 02/14/17 05:55 Enoxaparin Sodium (Lovenox) 100 mg ONCE ONCE SC 02/14/17 06:00 02/14/17 06:01 DC 02/14/17 06:03 Ondansetron HCl (Zofran Inj) 4 mg ER BRIDGE PRN IV NAUSEA AND/OR VOMITING 02/14/17 06:00 02/15/17 05:59 Acetaminophen (Tylenol Tab) 650 mg ER BRIDGE PRN PO MILD PAIN/FEVER 02/14/17 06:00 02/15/17 05:59 Procedures/MDM EKG read by me: Time 2353, rate 91 Rhythm: Atrial fibrillation [place]: Rightward axis Intervals: Normal ST-T waves: Nonspecific ST changes, inferior T-wave inversion Ectopy: No Q-waves: No Impression: Atrial fibrillation with nonspecific changes MDM: Patient is an 81-year-old female who presents with intermittent chest pain for the last day. His associated shortness of breath. Her EKG shows atrial fibrillation without obvious ischemic changes. Her first troponin is not elevated. She does have evidence of CHF based on BNP and chest x-ray. She had some pleuritic component to chest pain, so a d-dimer was tested and is elevated. Due to renal insufficiency, a CTA of the chest could not be performed. Bilateral lower extremity Dopplers were performed and are negative. I will also obtain a VQ scan. The patient was given aspirin and Lovenox empirically, and will be admitted for further chest pain workup. She was given an initial dose of Lasix for diuresis due to CHF. She will need careful diuresis due to renal insufficiency. She was also found to have anemia, but did not have dark stool on exam. A guaiac was sent. Departure Diagnosis: Primary Impression: CHF (congestive heart failure) Congestive heart failure type: unspecified congestive heart failure type Congestive heart failure chronicity: acute on chronic Qualified Code: I50.9 - Acute on chronic congestive heart failure, unspecified congestive heart failure type Additional Impressions: Chest pain Chest pain type: unspecified Qualified Code: R07.9 - Chest pain, unspecified type Atrial fibrillation Atrial fibrillation type: chronic Qualified Code: I48.2 - Chronic atrial fibrillation Renal insufficiency Anemia Anemia type: unspecified type Qualified Code: D64.9 - Anemia, unspecified type Condition: JENARO Keith MD Feb 14, 2017 03:51
[2017-02-14] MEDS ORDERED: ASPIRIN 81 MG TAB PO ONE (04:00)
[2017-02-14 04:25] LABS: D-DIMER 1185.77 ng/ml (<460)
[2017-02-14 05:17] LABS: INR 1.25; PROTIME 15.8 Sec (12.2-14.2); PT RATIO 1.2
[2017-02-14 05:18] LABS: PARTIAL THROMBOPLASTIN TIME 41.7 Sec (25.0-35.0)
--- NOTE | 2017-02-14 05:35 | RADRPT ---
PROCEDURE: ULTRASOUND BILATERAL LOWER EXTREMITY VENOUS CLINICAL INDICATION: 81-year-old female with lower extremity pain. TECHNIQUE: Multiple sonographic images of the bilateral lower extremity deep venous system was obt ained utilizing grayscale, color-flow, compressive sonography and doppler imaging with augmentation. The images were reviewed on a PACS workstation. COMPARISON: None. FINDINGS: There is normal compressibility and flow within the common femoral, deep femoral, superficial femora l, popliteal, posterior tibial and peroneal veins. There is a complex right sided popliteal fossa cy st with multiple septations identified measuring approximately 6.2 x 1.7 x 2.7 cm. There appears to be diffuse left knee soft tissue swelling with moderate fluid collection surrounding the left knee. IMPRESSION: 1. No sonographic evidence for deep venous thrombosis. 2. Complex right popliteal fossa cyst. 3. Left knee soft tissue swelling with moderate soft tissue fluid collection. .Ronni Villaseñor MD, MD Date Time Electronically viewed and signed by .Ronni Villaseñor MD, on 02/14/2017 05:35 .M/
[2017-02-14] MEDS ORDERED: ENOXAPARIN 100 MG/ML SYG SC ONE (06:00)
[2017-02-14] MEDS ORDERED: ACETAMINOPHEN 325 MG TAB PO PRN (06:00)
[2017-02-14] MEDS ORDERED: ONDANSETRON 4 MG INJ IV PRN ×2 (06:00→16:00)
[2017-02-14] MEDS ORDERED: FUROSEMIDE 20 MG INJ IV ONE (06:00)
--- NOTE | 2017-02-14 11:30 | RADRPT ---
PROCEDURE: Nuclear medicine VQ scan CLINICAL INDICATION: Chest pain. Shortness of breath. Productive cough with sputum. TECHNIQUE: 1.0 mCi of technetium-99m DTPA was utilized for the ventilation study. 4.0 mCi of tech netium 99m MAA was utilized for the perfusion study. Planar imaging which performed in 8 planes. I mages were reviewed on the high resolution PACS workstation. COMPARISON: Chest x-ray 02/14/2017 FINDINGS: Very limited quality study. Only 2 views were obtained on both the ventilation and perfusion scan. There is mild heterogeneous uptake throughout the lungs on the ventilation and perfusion scan. Ther e is appropriate and normal perfusion throughout the right lung on both the ventilation and perfusio n scans. There is marked diminished perfusion and ventilation throughout the left lung which appears very small in size. The patient has a large heart accounting for this abnormality. No mismatched de fects are identified. There is no evidence for pulmonary embolism. IMPRESSION: 1. Low probability VQ scan. RPTAT: HMJB .Santi Hartley MD, MD Date Time Electronically viewed and signed by .Santi Hartley MD, MD on 02/14/2017 11:30 .B/
[2017-02-14 11:37] LABS: CREATINE KINASE 58 IU/L (23-200)
[2017-02-14 11:50] LABS: CK-MB 0.66 ng/ml (0.0-2.4)
[2017-02-14 11:54] LABS: TROPONIN-I < 0.012 ng/ml (0.00-0.12)
[2017-02-14] MEDS ORDERED: HYDR-3671 PO (12:00)
--- NOTE | 2017-02-14 13:57 | HP ---
Date/Time of Note Date/Time of Note DATE: 02/14/17 TIME: 13:52 Assessment/Plan VTE Prophylaxis VTE Prophylaxis Intervention: LMWH Lines/Catheters IV Catheter Type (from Nrsg): Saline Lock Assessment/Plan Chief Complaint/Hosp Course 1. CHFacute on chronic, systolic 2. Chest pain 3.Atrial fibrillation, controlled 4. Renal insufficiency, CKD mild 5. Anemia 6. Morbid obesity 7. Dm type II controlled 8. Hx pacemaker 9. CAD 10. Dyslipidemia 11. Left knee Joint pain with effusion 12. Hx of cholecystectomy 13. Hyponatremia Problems: Assessment/Plan 1. DVT prophylaxis with lovenox 2. cardiology consult dr Owens, notified 3. Telemetry monitoring 4. Optimization kidney function 5. Pain control 6. continue anticoagulation and home meds 7. Fluid restrictions 8. MAy start on low fat diet if dr Owens will not perform any procedures. HPI/ROS Admit Date/Time Admit Date/Time Feb 14, 2017 at 05:48 Hx of Present Illness The patient is an 81-year-old female who has history of congestive heart failure. Per ER record patient presents with sudden onset, intermittent, moderate substernal chest pain since 9:00 yesterday morning. According to the patient's granddaughter, she complained of worst pain at 9 PM but then stated that it subsided. At 11 PM she stated that the pain again became severe. The patient states that it hurts when she sits up and takes a deep breath. She reports feeling short of breath. She denies vomiting. Pt report coughing with white scant sputum for 2 month. The patient has a history of morbid obesity, joint pain, CAD, atrial fibrillation, CKD, history of normal ejection fraction, hypertension, dyslipidemia, UTI, and pacemaker placement. ROS Eyes: no complaints Respiratory: cough (for 2 month), No no complaints, No other, No pleuritic pain, No shortness of breath, No sputum, No wheezing Cardiovascular: chest pain, edema, No lightheadedness, No no complaints, No orthopenea, No other, No palpitations, No paroxysmal nocturnal dyspnea Musculoskeletal: back pain (below right scapula blade), bone/joint pain (left knee) Skin: bruising Neurologic: dizziness, No confusion, No focal-weakness, No headache, No no complaints, No other, No seizure, No syncope Endocrine: polydypsia, polyuria, No dry skin, No no complaints, No other, No temp intolerance, No weight change PMH/Family/Social Past Medical History Medical History: congestive heart failure, coronary artery disease, diabetes, high cholesterol, hypertension, urinary tract infection Past Surgical History Cholecystectomy 30 years ago, hysterectomy 30 years ago, pacemaker placement 2017 Past Surgical Hx: other Family History Significant Family History: diabetes, hypertension Social History Alcohol Use: none Smoking Status: Never smoker Drug Use: none Exam/Review of Systems Vital Signs Vitals Vital Signs Date Time Temp Pulse Resp B/P Pulse Ox O2 Delivery O2 Flow Rate FiO2 02/14/17 13:31 99.5 73 18 177/77 97 Room Air Exam Constitutional: alert, oriented, well developed Psych: nl mood/affect, no complaints Head: atraumatic, normocephalic Eyes: nl conjunctiva ENMT: nl external ears & nose Neck: supple Respiratory: diminished breath sounds Cardiovascular: irregular rhythm Gastrointestinal: soft Genitourinary - Female: nl external genitalia Musculoskeletal: joint tenderness (right shoulder, back) 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
[2017-02-14] MEDS ORDERED: NITROGLYCERIN (SL) 0.4 MG TAB SL PRN (14:30)
[2017-02-14] MEDS ORDERED: morphine 2 MG INJ IV PRN (14:30)
[2017-02-14] MEDS ORDERED: FUROSEMIDE 40 MG TAB PO SCH (14:30)
[2017-02-14] MEDS ORDERED: HYDROCODONE/APAP (5/325) TAB PO PRN (14:30)
[2017-02-14] MEDS ORDERED: POTASSIUM CHLORIDE (SR) 20 MEQ TAB PO SCH (14:30)
[2017-02-14 14:36] LABS: CREATINE KINASE 72 IU/L (23-200)
[2017-02-14 14:49] LABS: CK-MB 0.74 ng/ml (0.0-2.4)
[2017-02-14 14:51] LABS: TROPONIN-I < 0.012 ng/ml (0.00-0.12)
[2017-02-14] MEDS ORDERED: hydrALAzine 20 MG INJ IV PRN (15:30)
[2017-02-14] MEDS ORDERED: METOPROLOL 5 MG INJ IV PRN (15:30)
[2017-02-14] MEDS ORDERED: NA POLYST SULFON 15 GM/60 ML BTL PO ONE (15:30)
[2017-02-14] MEDS ORDERED: BISACODYL (EC) 5 MG TAB PO PRN (16:00)
[2017-02-14] MEDS ORDERED: NACL 0.9% 3 ML SYG IV SCH (16:00)
[2017-02-14] MEDS ORDERED: DOCUSATE SODIUM 100 MG CAP PO PRN (16:00)
[2017-02-14] MEDS: WARFARIN 5 MG TAB PO SCH (16:05)
[2017-02-14] MEDS: LISINOPRIL 5 MG TAB PO SCH (16:06)
[2017-02-14] MEDS ORDERED: GLUCAGON 1 MG INJ IM PRN (17:00)
[2017-02-14] MEDS ORDERED: DEXTROSE 50% 50 ML SYRINGE IV PRN ×2 (17:00)
[2017-02-14] MEDS ORDERED: GLUCOSE GEL 15 GRAM TUBE BUCCAL PRN (17:00)
[2017-02-14] MEDS ORDERED: GLUCOSE GEL 15 GRAM TUBE PO PRN ×2 (17:00)
[2017-02-14] MEDS: ISOSORBIDE MONONITRATE(SR)60 MG TAB PO SCH (17:16)
[2017-02-14] MEDS: INSULIN ASPART [NOVOLOG] 3 ML PEN SC SCH ×2 (17:20→20:52)
[2017-02-14 17:32] LABS: INR 1.44; PROTIME 17.6 Sec (12.2-14.2); PT RATIO 1.4
[2017-02-14 17:33] LABS: CREATINE KINASE 67 IU/L (23-200); PARTIAL THROMBOPLASTIN TIME 33.8 Sec (25.0-35.0)
[2017-02-14 17:46] LABS: CK-MB 0.92 ng/ml (0.0-2.4)
[2017-02-14 17:47] LABS: TROPONIN-I < 0.012 ng/ml (0.00-0.12)
--- NOTE | 2017-02-14 18:42 | CONS ---
DATE OF ADMISSION: 02/14/2017 DATE OF CONSULTATION: 02/14/2017 REASON FOR CONSULTATION: Atrial fibrillation, permanent pacemaker, congestive heart failure. REQUESTING PHYSICIAN: Dr. Mateusz Kaminski HISTORY OF PRESENT ILLNESS: is an 81-year-old female with history of atrial fibrillation, tachy cardic mediation status post prior pacemaker implant in December 2016, hypertension, dyslipidemia w ho presented with complaints of substernal chest pain associated with shortness of breath onset in t he morning on admission. Initially upon arrival, temperature 98.5, blood pressure 184/91, pulse 98, respiratory rate 18, satu rating 96%. The patient's labs were notable for a white count of 10.5, hemoglobin 8.4, platelet cou nt 271. Sodium 131, potassium 5.3, creatinine 1.46, BUN 22. Troponin negative. BNP of 7460. The patient underwent a VQ scan revealing low probability VQ scan, a venous ultrasound that revealed no sonographic evidence of DVT, complex right popliteal fossa cyst, and a chest x-ray revealed card iomegaly, pulmonary vessels top normal in caliber. The patient's electrocardiogram revealed atrial fibrillation at a rate of 91, normal axis, inferior T-wave inversion and borderline anterior R-wave progression. The patient was admitted to the floor and since admit to floor, denies ongoing chest p ain, but has ongoing shortness of breath. The patient's blood pressure remains significantly uncont rolled. PAST MEDICAL HISTORY: As above in HPI. MEDICATIONS CURRENTLY IN HOSPITAL: 1. Metformin 500 mg daily. 2. Glipizide 5 mg daily. 3. Protonix 40 mg daily. 4. Lipitor 40 mg at bedtime. 5. Coumadin 5 mg daily. 6. Carvedilol 25 mg p.o. b.i.d. 7. Lasix 40 mg daily. 8. Hydralazine 62.5 mg daily. 9. Imdur 60 mg daily. 10. Zestril 5 mg daily. 11. Zofran p.r.n. 12. Tylenol p.r.n. ALLERGIES: NO KNOWN DRUG ALLERGIES. SOCIAL HISTORY: No tobacco, ETOH or illicit drug use. FAMILY HISTORY: No history of sudden cardiac or early CAD. REVIEW OF SYSTEMS: As above in HPI. CONSTITUTIONAL: No fevers, chills. PULMONARY: No current shortness of breath. CARDIOVASCULAR: Intermittent chest pain. GASTROINTESTINAL: No vomiting. GENITOURINARY: No hematuria. MUSCULOSKELETAL: Degenerative joint disease. PSYCHIATRIC: The patient denies depression. NEUROLOGIC: No documented history of CVA. PHYSICAL EXAMINATION VITAL SIGNS: Temperature 99.5, blood pressure markedly elevated at 177/77, pulse 73, respiratory ra te 18, saturating 97%. GENERAL: The patient is alert, awake, complaining of shortness of breath, chest pain. NECK: JVP difficult to assess secondary to body habitus. HEART: Irregularly irregular, I/ systolic murmur. ABDOMEN: Positive bowel sounds, soft, obese. EXTREMITIES: Trace edema, 1+ pulses bilaterally, posterior tibial. LABORATORIES: As above in HPI. Since admit patient had a second troponin return negative for 2 neg ative troponins, although there are troponins in here, the third troponin was drawn only 2 hours fro m the second one. IMAGING STUDIES: As above in HPI. No further imaging studies for my review at this time. ECG: As above in HPI. No further electrocardiograms for my review at this time. IMPRESSION: 1. Atrial fibrillation, currently rate controlled, but previously with some mild rapid ventricular response. 2. History of permanent pacemaker for tachybrady syndrome. 3. Tachybrady syndrome, status post permanent pacemaker, December 2016. 4. Congestive heart failure, diastolic, but most recent echo with an EF of 50% July 2016. 5. Hypertension, uncontrolled significantly. 6. Dyslipidemia. 7. Diabetes mellitus. 8. Renal failure. 9. Hyponatremia. 10. Anemia. RECOMMENDATIONS: 1. At this time, would maintain patient on telemetry monitoring to follow rhythm and rate control c losely. 2. Would cover the patient with Lovenox, and she has received a dose today, until she is therapeuti c on her Coumadin with subtherapeutic INR. 3. Continue the patient's current Carvedilol, Zestril and hydralazine, but will change dose of hydr alazine to improve overall systolic blood pressure control and will continue the patient's Imdur for antianginal effects this time. 4. Reassess patient's ejection fraction by 2D echo. It has been 6 months since most recent echo. 5. We will send additional troponins along with CK, CK-MB to ensure the patient has not had any rec ent ischemic syndromes and if patient does rule out, will place the patient in for cardiac stress te st as possible given body habitus to assess for the possibility of significant obstructive coronary artery disease lending to chest pain and subsequent admit to the hospital. 6. Additionally give the patient sublingual nitroglycerin for recurrent episodes of chest pain. Thank you for allowing me to take part in the care of this patient. I will continue to follow very closely with you with further recommendations to be made as the patient progresses through his [facility] clinical course. Dictated By: MARINA JOHNSON/JUSTO Conf#: [id number] DID#: [id number] CC: MATEUSZ KAMINSKI MD;*EndCC*
[2017-02-14] MEDS: FUROSEMIDE 40 MG INJ IV SCH (18:50)
[2017-02-14] MEDS: ACETAMINOPHEN 325 MG TAB PO PRN (19:29)
[2017-02-14] MEDS: ATORVASTATIN 40 MG TAB PO SCH (20:52)
[2017-02-15] VITALS (10 sets, daily range): BP systolic 110–158; BP diastolic 59–91; PULSE 69–101; RESP 18–22
[2017-02-15 01:37] LABS: CREATINE KINASE 55 IU/L (23-200)
[2017-02-15 01:51] LABS: TROPONIN-I < 0.012 ng/ml (0.00-0.12)
[2017-02-15] MEDS: ACCU-CHEK XX SCH ×2 (02:00)
[2017-02-15] MEDS ORDERED: PANTOPRAZOLE (EC) 40 MG TAB PO SCH (06:00)
[2017-02-15] MEDS: PANTOPRAZOLE (EC) 40 MG TAB PO SCH (06:35)
[2017-02-15] MEDS: FUROSEMIDE 40 MG INJ IV SCH ×2 (06:36→17:22)
[2017-02-15 06:45] LABS: BASOPHIL # 0.1 10^3/ul (0.0-0.1); BASOPHILS % 0.9 % (0.0-2.0); EOSINOPHILS # 0.2 10^3/ul (0.0-0.5); EOSINOPHILS % 3.3 % (0.0-7.0); HEMATOCRIT 25.5 % (37.0-47.0); HEMOGLOBIN 8.1 g/dl (12.0-16.0); LYMPHOCYTES % 15.7 % (15.0-51.0); MEAN CORPUSCULAR HEMOGLOBIN 28.7 pg (29.0-33.0); MEAN CORPUSCULAR HGB CONC 31.8 g/dl (32.0-37.0); MEAN CORPUSCULAR VOLUME 90.4 fl (82.0-101.0); MEAN PLATELET VOLUME 11.2 fl (7.4-10.4); MONOCYTE # 0.9 10^3/ul (0.3-0.9); MONOCYTES % 13.6 % (0.0-11.0); NEUTROPHIL # 4.2 10^3/ul (1.6-7.5); NEUTROPHILS % 66.2 % (39.0-77.0); PLATELET COUNT 250 10^3/UL (140-415); RED BLOOD COUNT 2.82 10^6/ul (4.20-5.40); RED CELL DISTRIBUTION WIDTH 14.4 % (11.5-14.5); WHITE BLOOD COUNT 6.4 10^3/ul (4.8-10.8)
[2017-02-15 06:53] LABS: INR 1.53; PROTIME 18.5 Sec (12.2-14.2); PT RATIO 1.4
[2017-02-15 06:59] LABS: ALBUMIN 3.2 g/dl (3.3-4.9); ALBUMIN/GLOBULIN RATIO 1.06; BILIRUBIN,INDIRECT 0.5 mg/dl (0-1.1); BILIRUBIN,TOTAL 0.5 mg/dl (0.2-1.3); CALCIUM 8.6 mg/dl (8.4-10.2); CREATININE 1.39 mg/dl (0.44-1.00); POTASSIUM 4.5 mmol/L (3.5-5.1); TOTAL PROTEIN 6.2 g/dl (6.1-8.1)
[2017-02-15] MEDS ORDERED: glipiZIDE 5 MG TAB PO SCH (07:25)
[2017-02-15] MEDS ORDERED: metFORMIN 500 MG TAB PO SCH (07:55)
[2017-02-15] MEDS: INSULIN ASPART [NOVOLOG] 3 ML PEN SC SCH ×4 (07:55→21:00)
[2017-02-15] MEDS: ENOXAPARIN 100 MG/ML SYG SC SCH (08:21)
[2017-02-15] MEDS: ISOSORBIDE MONONITRATE(SR)60 MG TAB PO SCH (08:25)
[2017-02-15] MEDS: LISINOPRIL 5 MG TAB PO SCH (08:26)
[2017-02-15] MEDS ORDERED: ENOXAPARIN 40 MG/0.4 ML SYG SC SCH (09:00)
[2017-02-15] MEDS ORDERED: REGADENOSON 0.4 MG/5 ML SYG ONE (10:24)
--- NOTE | 2017-02-15 11:59 | CONS ---
Date/Time of Note Date/Time of Note DATE: 02/15/17 TIME: 11:54 Assessment/Plan Assessment/Plan Chief Complaint/Hosp Course IMPRESSION: 1. Atrial fibrillation, currently rate controlled, but previously with some mild rapid ventricular response.-Negative trop x 3 2. History of permanent pacemaker for tachybrady syndrome. 3. Tachybrady syndrome, status post permanent pacemaker, December 2016. 4. Congestive heart failure, diastolic, but most recent echo with an EF of 50% July 2016. 5. Hypertension, uncontrolled significantly. 6. Dyslipidemia. 7. Diabetes mellitus. 8. Renal failure. 9. Hyponatremia. 10. Anemia. Recc: -Tele -serial ecg's -Continue lasix diuresus and follow creatnine closely -Continue coreg/zestril/imdur/Hydralazine -Will f/u echo -lexiscan stress test today -Continuie lovenox systemic anti-coagulation Problems: Consultation Date/Type/Reason Admit Date/Time Feb 14, 2017 at 05:48 Initial Consult Date 02/14/17 Type of Consultation: cardiology Reason for Consultation chest pain Referring Provider: ASHLEY KAMINSKI MD Exam/Review of Systems Vital Signs Vitals Vital Signs Date Time Temp Pulse Resp B/P Pulse Ox O2 Delivery O2 Flow Rate FiO2 02/15/17 10:56 Nasal Cannula 2.0 02/15/17 08:05 69 02/15/17 07:11 98.4 21 158/80 97 Intake and Output 02/14/17 02/14/17 02/15/17 15:00 23:00 07:00 Intake Total 200 ml 200 ml Balance 200 ml 200 ml Exam Review of Systems: CONSTITUTIONAL: No fevers, chills. PULMONARY: No sob CARDIOVASCULAR: intermittent chest pain GASTROINTESTINAL: No nausea/vomiting. GENITOURINARY: No hematuria/dysuria. MUSCULOSKELETAL: No myagias/arthalgias. PSYCHIATRIC: The patient denies depression. NEUROLOGIC: No weakness Constitutional: alert Psych: no complaints Head: normocephalic ENMT: mucosa pink and moist Neck: jvd (9 cm water), supple Respiratory: diminished breath sounds (at bases/B) Cardiovascular: regular rate and rhythm Gastrointestinal: non-tender, soft Musculoskeletal: muscle tone (normal) Extremities: edema (none) Results Result Diagram: 02/15/1754702/15/17547 Results 24 hrs Laboratory Tests Test 02/14/17 13:40 02/14/17 14:09 02/14/17 16:54 02/14/17 17:20 Bedside Glucose 83 90 Creatine Kinase 72 67 Creatine Kinase Index 1.0 1.4 Creatinine Kinase MB (Mass) 0.74 0.92 Troponin I < 0.012 < 0.012 Prothrombin Time 17.6 H Prothrombin Time Ratio 1.4 INR International Normalized Ratio 1.44 Activated Partial Thromboplast Time 33.8 Test 02/14/17 20:36 02/15/17 00:35 02/15/17 02:06 02/15/17 05:48 Bedside Glucose 132 91 Creatine Kinase 55 Creatine Kinase Index 1.6 Creatinine Kinase MB (Mass) 0.90 Troponin I < 0.012 White Blood Count 6.4 # Red Blood Count 2.82 L Hemoglobin 8.1 L Hematocrit 25.5 L Mean Corpuscular Volume 90.4 Mean Corpuscular Hemoglobin 28.7 L Mean Corpuscular Hemoglobin Concent 31.8 L Red Cell Distribution Width 14.4 Platelet Count 250 Mean Platelet Volume 11.2 H Neutrophils % 66.2 Lymphocytes % 15.7 Monocytes % 13.6 H Eosinophils % 3.3 Basophils % 0.9 Nucleated Red Blood Cells % 0.0 Neutrophils # 4.2 Lymphocytes # 1.0 Monocytes # 0.9 Eosinophils # 0.2 Basophils # 0.1 Nucleated Red Blood Cells # 0.0 Prothrombin Time 18.5 H Prothrombin Time Ratio 1.4 INR International Normalized Ratio 1.53 Sodium Level 135 Potassium Level 4.5 Chloride Level 97 Carbon Dioxide Level 29 Anion Gap 14 Blood Urea Nitrogen 25 H Creatinine 1.39 H Glucose Level 81 Hemoglobin A1c 5.3 Calcium Level 8.6 Total Bilirubin 0.5 Direct Bilirubin 0.00 Indirect Bilirubin 0.5 Aspartate Amino Transf (AST/SGOT) 19 Alanine Aminotransferase (ALT/SGPT) 33 Alkaline Phosphatase 85 Total Protein 6.2 Albumin 3.2 L Globulin 3.00 Albumin/Globulin Ratio 1.06 Test 02/15/17 08:18 Bedside Glucose 82 Medications Medications Current Medications Atorvastatin Calcium (Lipitor) 40 mg HS PO Last administered on 02/14/17 20: 52; Admin Dose 40 MG; Start 02/14/17 at 21:00 Carvedilol (Coreg) 25 mg BID PO Last administered on 02/15/17 08:26; Admin Dose 25 MG; Start 02/14/17 at 14:30 Isosorbide Mononitrate (Imdur) 60 mg DAILY PO Last administered on 02/15/17 08:25; Admin Dose 60 MG; Start 02/14/17 at 14:30 Lisinopril (Zestril) 5 mg DAILY PO Last administered on 02/15/17 08:26; Admin Dose 5 MG; Start 02/14/17 at 14:30 Nitroglycerin (Nitroglycerin (Sl Tab) 0.4 Mg) 0.4 tab Q4 PRN SL CHEST PAIN; Start 02/14/17 at 14:30 Warfarin Sodium (Coumadin) 5 mg DAILY@17 PO Last administered on 02/14/17 16: 05; Admin Dose 5 MG; Start 02/14/17 at 17:00 Pantoprazole (Protonix Tab) 40 mg DAILY@06 PO Last administered on 02/15/17 06:35; Admin Dose 40 MG; Start 02/15/17 at 06:00 Acetaminophen/ Hydrocodone Bitart ([place] (5/325)) 1 tab Q4H PRN PO PAIN LEVEL 4 -6; Start 02/14/17 at 14:30 Morphine Sulfate (morphine) 2 mg Q4H PRN IV PAIN LEVEL 7-10; Start 02/14/17 at 14:30 Hydralazine HCl (Apresoline) 50 mg Q8 PO Last administered on 02/15/17 06:36 ; Admin Dose 50 MG; Start 02/14/17 at 22:00 Enoxaparin Sodium (Lovenox) 100 mg Q24H SC Last administered on 02/15/17 08: 21; Admin Dose 100 MG; Start 02/15/17 at 08:00 Hydralazine HCl (Apresoline) 10 mg Q4H PRN IV SBP>170; Start 02/14/17 at 15:30 Metoprolol Tartrate (Lopressor) 5 mg Q4H PRN IV HR>110 Hold SBP<100; Start at 15:30 Influenza Virus Vaccine (Fluzone) 0.5 ml ONCE ONCE IM* ; Start 02/16/17 at 09: 00; Stop 02/16/17 at 09:01 Ondansetron HCl (Zofran Inj) 4 mg Q6H PRN IV NAUSEA AND/OR VOMITING; Start at 16:00 Acetaminophen (Tylenol Tab) 650 mg Q6H PRN PO PAIN LEVEL 1-3 OR FEVER Last administered on 02/14/17 19:29; Admin Dose 650 MG; Start 02/14/17 at 16:00 Docusate Sodium (Colace) 100 mg Q12H PRN PO CONSTIPATION; Start 02/14/17 at 16 :00 Bisacodyl (Dulcolax) 5 mg DAILY PRN PO CONSTIPATION; Start 02/14/17 at 16:00 Diagnostic Test (Pha) (Accu-Chek) 1 ea 02 XX Last administered on 02/15/17 02 :00; Admin Dose 1 EA; Start 02/15/17 at 02:00 Diagnostic Test (Pha) (Accu-Chek) 1 ea 02 XX Last administered on 02/15/17 02 :00; Admin Dose 1 EA; Start 02/15/17 at 02:00 Miscellaneous Information 1 ea NOTE XX ; Start 02/14/17 at 17:00 Glucose (Glutose) 15 gm Q15M PRN PO DECREASED GLUCOSE; Start 02/14/17 at 17:00 Glucose (Glutose) 22.5 gm Q15M PRN PO DECREASED GLUCOSE; Start 02/14/17 at 17: 00 Dextrose (D50w Syringe) 25 ml Q15M PRN IV DECREASED GLUCOSE; Start 02/14/17 at 17:00 Dextrose (D50w Syringe) 50 ml Q15M PRN IV DECREASED GLUCOSE; Start 02/14/17 at 17:00 Glucagon (Glucagen) 1 mg Q15M PRN IM DECREASED GLUCOSE; Start 02/14/17 at 17: 00 Glucose (Glutose) 15 gm Q15M PRN BUCCAL DECREASED GLUCOSE; Start 02/14/17 at 17:00 MARINA RIOS Feb 15, 2017 11:59
--- NOTE | 2017-02-15 12:17 | CARRPT ---
DATE OF PROCEDURE: 02/15/2017 FINDINGS: Technically difficult echo and limited views. TYPE OF PROCEDURE: Lexiscan Cardiolite stress electrogram portion. INDICATIONS: Chest pain, assess for ischemia. BASELINE VITAL SIGNS AND ELECTROCARDIOGRAM: Pulse 79, blood pressure 136/81. Electrocardiogram rev ealed atrial fibrillation at a rate of 83, normal axis, normal intervals, nonspecific ST-T abnormali ties diffusely. PROCEDURE: The patient underwent standard Lexiscan infusion for over 10 seconds followed by radiola beled tracer. The patient's test was stopped due to completion of protocol. Maximal achieved blood pressure during the test 105/66. Maximum heart rate during the test 101. ELECTROCARDIOGRAM FINDINGS: The patient did not develop any new Lexiscan-induced ST or T-wave azevedo es from baseline abnormalities. No documented PACs or PVCs. SYMPTOMS: The patient had no complaints of chest pain or shortness of breath. Mild headache during stress which resolved in recovery. IMPRESSION: 1. No Lexiscan-induced ST or T-wave changes from baseline abnormalities or diagnostic cardiac ische nava. 2. No complaints of chest pain or shortness of breath during stress testing. 3. No documented premature ventricular contractions during stress testing. 4. Report of nuclear images to follow in separate dictation. Dictated By: MARINA JOHNSON/JUSTO Conf#: [id number] DID#: [id number] CC: ASHLEY KAMINSKI MD;*EndCC*
--- NOTE | 2017-02-15 14:39 | RADRPT ---
PROCEDURE: Nuclear medicine myocardial stress and rest scan. CLINICAL INDICATION: Chest pain. TECHNIQUE: The patient was stressed with 0.4 mg IV Lexiscan. 11.1 mCi technetium 99m Tetrofosmin (Myoview) was administered rest. 31.8 mCi technetium 99m Tetrofosmin (Myoview) was administered du ring stress. Images were obtained and reconstructed in the short axis, horizontal long axis, and ve rtical long axis. Gated images were obtained and ejection fraction was calculated. COMPARISON: No prior study is available for comparison. FINDINGS: The stress and rest images demonstrate normal uptake throughout. There is no fixed abnormality or r eversible abnormality. There is no evidence of transient ischemic dilatation. Wall motion is normal. There is normal wall thickening during systole. Ejection fraction at stress is 65%. IMPRESSION: 1. No evidence of stress induced myocardial ischemia. 2. Ejection fraction at stress is 65%. RPTAT: QQ .Josemanuel Raya MD, MD Date Time Electronically viewed and signed by .Josemanuel Raya MD, on 02/15/2017 14:39 .R/
[2017-02-15] MEDS: ACETAMINOPHEN 325 MG TAB PO PRN (15:30)
--- NOTE | 2017-02-15 17:08 | PN ---
Date/Time of Note Date/Time of Note DATE: 02/15/17 TIME: 17:06 Assessment/Plan VTE Prophylaxis VTE Prophylaxis Intervention: LMWH Lines/Catheters IV [facility]from [facility] Saline Lock Urinary Cath still in place: No Assessment/Plan Chief Complaint/Hosp Course 1CHFacute on chronic, systolic 2. Chest pain 3.Atrial fibrillation, controlled 4. Renal insufficiency, CKD mild 5. Anemia 6. Morbid obesity 7. Dm type II controlled 8. Hx pacemaker 9. CAD 10. Dyslipidemia 11. Left knee Joint pain with effusion 12. Hx of cholecystectomy 13. Hyponatremia Problems: Assessment/Plan # c/w Lasix # Telemetry monitoring # Pending nuclear stress test # c/w Coreg/lisnopril # Fluid restriction # Anemia wup # c/w Lovenox/coumadin Problems: Subjective 24 Hr Interval Summary Free Text/Dictation Feels better Exam/Review of Systems Vital Signs Vitals Vital Signs Date Time Temp Pulse Resp B/P Pulse Ox O2 Delivery O2 Flow Rate FiO2 02/15/17 16:25 101 02/15/17 15:51 97.6 22 133/74 97 02/15/17 10:56 Nasal Cannula 2.0 Intake and Output 02/14/17 02/14/17 02/15/17 15:00 23:00 07:00 Intake Total 200 ml 200 ml Balance 200 ml 200 ml Exam onstitutional: alert, oriented, well developed Psych: nl mood/affect, no complaints Head: atraumatic, normocephalic Eyes: nl conjunctiva ENMT: nl external ears & nose Neck: supple Respiratory: diminished breath sounds Cardiovascular: irregular rhythm Gastrointestinal: soft Genitourinary - Female: nl external genitalia Musculoskeletal: joint tenderness (right shoulder, back) 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, nl mental status Skin: nl turgor Results Result Diagram: 02/15/17 0548 02/15/17 0548 Results 24 hrs Laboratory Tests Test 02/14/17 17:20 02/14/17 20:36 02/15/17 00:35 02/15/17 02:06 Bedside Glucose 90 132 91 Creatine Kinase 55 Creatine Kinase Index 1.6 Creatinine Kinase MB (Mass) 0.90 Troponin I < 0.012 Test 02/15/17 05:48 02/15/17 08:18 02/15/17 12:22 White Blood Count 6.4 # Red Blood Count 2.82 L Hemoglobin 8.1 L Hematocrit 25.5 L Mean Corpuscular Volume 90.4 Mean Corpuscular Hemoglobin 28.7 L Mean Corpuscular Hemoglobin Concent 31.8 L Red Cell Distribution Width 14.4 Platelet Count 250 Mean Platelet Volume 11.2 H Neutrophils % 66.2 Lymphocytes % 15.7 Monocytes % 13.6 H Eosinophils % 3.3 Basophils % 0.9 Nucleated Red Blood Cells % 0.0 Neutrophils # 4.2 Lymphocytes # 1.0 Monocytes # 0.9 Eosinophils # 0.2 Basophils # 0.1 Nucleated Red Blood Cells # 0.0 Prothrombin Time 18.5 H Prothrombin Time Ratio 1.4 INR International Normalized Ratio 1.53 Sodium Level 135 Potassium Level 4.5 Chloride Level 97 Carbon Dioxide Level 29 Anion Gap 14 Blood Urea Nitrogen 25 H Creatinine 1.39 H Glucose Level 81 Hemoglobin A1c 5.3 Calcium Level 8.6 Total Bilirubin 0.5 Direct Bilirubin 0.00 Indirect Bilirubin 0.5 Aspartate Amino Transf (AST/SGOT) 19 Alanine Aminotransferase (ALT/SGPT) 33 Alkaline Phosphatase 85 Total Protein 6.2 Albumin 3.2 L Globulin 3.00 Albumin/Globulin Ratio 1.06 Bedside Glucose 82 109 Medications Medications Current Medications Atorvastatin Calcium (Lipitor) 40 mg HS PO Last administered on 02/14/17 20: 52; Admin Dose 40 MG; Start 02/14/17 at 21:00 Carvedilol (Coreg) 25 mg BID PO Last administered on 02/15/17 08:26; Admin Dose 25 MG; Start 02/14/17 at 14:30 Isosorbide Mononitrate (Imdur) 60 mg DAILY PO Last administered on 02/15/17 08:25; Admin Dose 60 MG; Start 02/14/17 at 14:30 Lisinopril (Zestril) 5 mg DAILY PO Last administered on 02/15/17 08:26; Admin Dose 5 MG; Start 02/14/17 at 14:30 Nitroglycerin (Nitroglycerin (Sl Tab) 0.4 Mg) 0.4 tab Q4 PRN SL CHEST PAIN; Start 02/14/17 at 14:30 Warfarin Sodium (Coumadin) 5 mg DAILY@17 PO Last administered on 02/14/17 16: 05; Admin Dose 5 MG; Start 02/14/17 at 17:00 Pantoprazole (Protonix Tab) 40 mg DAILY@06 PO Last administered on 02/15/17 06:35; Admin Dose 40 MG; Start 02/15/17 at 06:00 Acetaminophen/ Hydrocodone Bitart ([place] (5/325)) 1 tab Q4H PRN PO PAIN LEVEL 4 -6; Start 02/14/17 at 14:30 Morphine Sulfate (morphine) 2 mg Q4H PRN IV PAIN LEVEL 7-10; Start 02/14/17 at 14:30 Hydralazine HCl (Apresoline) 50 mg Q8 PO Last administered on 02/15/17 15:30 ; Admin Dose 50 MG; Start 02/14/17 at 22:00 Enoxaparin Sodium (Lovenox) 100 mg Q24H SC Last administered on 02/15/17 08: 21; Admin Dose 100 MG; Start 02/15/17 at 08:00 Hydralazine HCl (Apresoline) 10 mg Q4H PRN IV SBP>170; Start 02/14/17 at 15:30 Metoprolol Tartrate (Lopressor) 5 mg Q4H PRN IV HR>110 Hold SBP<100; Start at 15:30 Influenza Virus Vaccine (Fluzone) 0.5 ml ONCE ONCE IM* ; Start 02/16/17 at 09: 00; Stop 02/16/17 at 09:01 Ondansetron HCl (Zofran Inj) 4 mg Q6H PRN IV NAUSEA AND/OR VOMITING; Start at 16:00 Acetaminophen (Tylenol Tab) 650 mg Q6H PRN PO PAIN LEVEL 1-3 OR FEVER Last administered on 02/15/17 15:30; Admin Dose 650 MG; Start 02/14/17 at 16:00 Docusate Sodium (Colace) 100 mg Q12H PRN PO CONSTIPATION; Start 02/14/17 at 16 :00 Bisacodyl (Dulcolax) 5 mg DAILY PRN PO CONSTIPATION; Start 02/14/17 at 16:00 Diagnostic Test (Pha) (Accu-Chek) 1 ea 02 XX Last administered on 02/15/17 02 :00; Admin Dose 1 EA; Start 02/15/17 at 02:00 Diagnostic Test (Pha) (Accu-Chek) 1 ea 02 XX Last administered on 02/15/17t 02 :00; Admin Dose 1 EA; Start 02/15/17 at 02:00 Miscellaneous Information 1 ea NOTE XX ; Start 02/14/17 at 17:00 Glucose (Glutose) 15 gm Q15M PRN PO DECREASED GLUCOSE; Start 02/14/17 at 17:00 Glucose (Glutose) 22.5 gm Q15M PRN PO DECREASED GLUCOSE; Start 02/14/17 at 17: 00 Dextrose (D50w Syringe) 25 ml Q15M PRN IV DECREASED GLUCOSE; Start 02/14/17 at 17:00 Dextrose (D50w Syringe) 50 ml Q15M PRN IV DECREASED GLUCOSE; Start 02/14/17 at 17:00 Glucagon (Glucagen) 1 mg Q15M PRN IM DECREASED GLUCOSE; Start 02/14/17 at 17: 00 Glucose (Glutose) 15 gm Q15M PRN BUCCAL DECREASED GLUCOSE; Start 02/14/17 at 17:00 JAYA MUNROE MD Feb 15, 2017 17:08
[2017-02-15] MEDS: WARFARIN 5 MG TAB PO SCH (17:21)
[2017-02-15 18:39] LABS: RETICULOCYTE COUNT % 1.7 % (0.5-1.5)
[2017-02-15 19:33] LABS: IRON 28 ug/dl (35-150)
[2017-02-15 19:43] LABS: TOTAL IRON BINDING CAPACITY 268 ug/dl (241-421)
--- NOTE | 2017-02-15 19:44 | RADRPT ---
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 Physician: MARINA OWENS Quality: Adequate Procedures: Transthoracic echocardiogram with complete 2D, M-Mode, and doppler examination. Indications: Congestive Heart Failure. 2D/M Mode Doppler Measurement Value Normal Ranges Measurement Value Normal Ranges LVIDd 2D 5.5 3.5 - 5.6 cm AV Peak Harry 2.1 m/sec LVIDs 2D 3.6 2.1 - 4.1 cm AV Peak PG 17.0 mmHg FS 2D 34.7 % AI Peak PG 39.0 mmHg LVPWd 2D 1.9 0.6 - 1.1 cm AI Peak Harry 3.1 m/sec IVSd 2D 1.9 0.6 - 1.1 cm AI PHT 363.0 msec IVS/LVPW 2D 1.0 LVOT Peak Harry 1.4 m/sec AoR Diam 2D 2.9 2.0 - 3.7 cm LVOT Peak PG 8.0 mmHg LA/Ao 2D 2 0 - 1 MV E Peak Harry 1.0 m/sec EDV 2D 170.0 cm3 MV Decel Time 229 msec ESV 2D 47.4 cm3 TR Peak Harry 2.9 m/sec LA Dimen 2D 5.1 2.3 - 4.0 cm TR Peak PG 33.0 mmHg RVSP 36.0 mmHg Findings Left Ventricle: Lower limits of normal systolic function. Normal left ventricular cavity size. Severe concentric left ventricular hypertrophy. Ejection fraction is visually estimated at 5560 %. Abnormal Diastolic Function. Right Ventricle: Normal right ventricular size. Normal right ventricular systolic function. Pacemaker right heart. Left Atrium: There is severe enlargement of left atrium. Right Atrium: The right atrium is normal in size. Mitral Valve: Mild mitral leaflet calcification. Mild mitral annular calcification. Trace mitral regurgitation. Aortic Valve: Aortic sclerosis without stenosis. Mild aortic valve regurgitation. Tricuspid Valve: Normal appearance of the tricuspid valve. Estimated peak PA systolic pressure 36 mmHg. There is mild tricuspid regurgitation. Pulmonic Valve: Pulmonic valve not well visualized. There is trace pulmonic regurgitation. Pericardium: Normal pericardium with no significant pericardial effusion. Aorta: Normal aortic root. IVC: Normal size and normal respiratory collapse consistent with normal right atrial pressure. Conclusions 1.Lower limits of normal systolic function. Normal left ventricular cavity size. Severe concentric left ventricular hypertrophy. Ejection fraction is visually estimated at 55-60 %. Abnormal Diastolic Function. 2.Normal right ventricular size. Normal right ventricular systolic function. Pacemaker right heart. 3.There is severe enlargement of left atrium. 4.Mild mitral leaflet calcification. Mild mitral annular calcification. Trace mitral regurgitation. 5.Aortic sclerosis without stenosis. Mild aortic valve regurgitation. 6.Normal appearance of the tricuspid valve. Estimated peak PA systolic pressure 36 mmHg. There is mild tricuspid regurgitation. 7.Pulmonic valve not well visualized. There is trace pulmonic regurgitation. Electronically Signed By: Marina Owens 15-Feb-2017 19:43:19 -0700 Patient Name: MAIA ALVAREZ Study Date: 15-Feb-2017 [id number]
[2017-02-15] MEDS: ATORVASTATIN 40 MG TAB PO SCH (21:16)
[2017-02-15 21:21] LABS: FOLATE 9.5 ng/ml (2.8-20.0)
[2017-02-16] VITALS (9 sets, daily range): BP systolic 116–139; BP diastolic 66–81; PULSE 70–86; RESP 16–22
[2017-02-16] MEDS: ACCU-CHEK XX SCH ×2 (02:00)
[2017-02-16] MEDS: FUROSEMIDE 40 MG INJ IV SCH ×2 (06:00→16:56)
[2017-02-16] MEDS: PANTOPRAZOLE (EC) 40 MG TAB PO SCH (06:00)
[2017-02-16] MEDS: INSULIN ASPART [NOVOLOG] 3 ML PEN SC SCH ×3 (07:47→16:54)
[2017-02-16] MEDS: ISOSORBIDE MONONITRATE(SR)60 MG TAB PO SCH (07:48)
[2017-02-16] MEDS: LISINOPRIL 5 MG TAB PO SCH (07:49)
[2017-02-16] MEDS: ENOXAPARIN 100 MG/ML SYG SC SCH (08:04)
[2017-02-16] MEDS ORDERED: INFLUENZA VIRUS VACCINE 0.5 ML (DISPENSING) IM* ONE (09:00)
[2017-02-16 10:28] LABS: INR 1.64; PROTIME 19.5 Sec (12.2-14.2); PT RATIO 1.5
--- NOTE | 2017-02-16 10:58 | CONS ---
Date/Time of Note Date/Time of Note DATE: 02/16/17 TIME: 10:56 Assessment/Plan Assessment/Plan Additional Assessment/Plan 1. Atrial fibrillation, currently rate controlled, but previously with some mild rapid ventricular response.-Negative trop x 3 - BETTER RATE NOW 2. History of permanent pacemaker for tachybrady syndrome- SITE LOOKS WELL. 3. Tachybrady syndrome, status post permanent pacemaker, December 2016. 4. Congestive heart failure, diastolic, but most recent echo with an EF of 50% July 2016. DECREASED SOB NOW. 5. Hypertension, uncontrolled significantly. WILL MONITOR CLINICALLY. 6. Dyslipidemia. 7. Diabetes mellitus- ON MEDS, KEEP EUGLYCEMIC. 8. Renal failure. 9. Hyponatremia. 10. Anemia. Consultation Date/Type/Reason Admit Date/Time Feb 14, 2017 at 05:48 Initial Consult Date Type of Consultation: cardiology Referring Provider: ASHLEY KAMINSKI MD 24 HR Interval Summary Free Text/Dictation Pt feels better - in good fluid status - con't to keep euvolemic. ROS: No fever, no chills, no nausea, no vomiting, no diarrhea/constipation No recent weight changes No chest pain, no PND, no orthopnea - better SOB No dizziness, blurred vision No thirst, no heat or cold intolerance Exam/Review of Systems Vital Signs Vitals Vital Signs Date Time Temp Pulse Resp B/P Pulse Ox O2 Delivery O2 Flow Rate FiO2 02/16/17 08:14 98.1 75 16 135/67 95 02/16/17 08:00 Nasal Cannula 2.0 Intake and Output 02/15/17 02/15/17 02/16/17 15:00 23:00 07:00 Intake Total 600 ml 250 ml Balance 600 ml 250 ml Exam General: WN/WD/NAD, AOx 2-3 HEENT: Unicetric/atraumatic/EOMI (follow commands) NECK: JVD elevated, no thyromegaly Lymph: no lymphadenopathy HEART: irregular with no S3, II/ systolic murmur at apex, pacer LUNGS: Coarse sounds ABD: soft, NT, ND, +BS : Intact Neuro: non focal SKIN: chronic changes EXT: trace edema Results Result Diagram: 02/15/17 0548 02/15/17 0548 Results 24 hrs Laboratory Tests Test 02/15/17 12:22 02/15/17 17:20 02/15/17 18:08 02/15/17 21:15 Bedside Glucose 109 119 109 Absolute Reticulocyte Count 0.055 Percent Reticulocyte Count 1.7 H Iron Level 28 L Total Iron Binding Capacity 268 Percent Iron Saturation 10 L Vitamin B12 Level 816 Folate 9.5 Test 02/16/17 07:45 02/16/17 08:21 Bedside Glucose 103 Prothrombin Time 19.5 H Prothrombin Time Ratio 1.5 INR International Normalized Ratio 1.64 Medications Medications Current Medications Atorvastatin Calcium (Lipitor) 40 mg HS PO Last administered on 02/15/17 21: 16; Admin Dose 40 MG; Start 02/14/17 at 21:00 Carvedilol (Coreg) 25 mg BID PO Last administered on 02/16/17 07:49; Admin Dose 25 MG; Start 02/14/17 at 14:30 Isosorbide Mononitrate (Imdur) 60 mg DAILY PO Last administered on 02/16/17 07:48; Admin Dose 60 MG; Start 02/14/17 at 14:30 Lisinopril (Zestril) 5 mg DAILY PO Last administered on 02/16/17 07:49; Admin Dose 5 MG; Start 02/14/17 at 14:30 Nitroglycerin (Nitroglycerin (Sl Tab) 0.4 Mg) 0.4 tab Q4 PRN SL CHEST PAIN; Start 02/14/17 at 14:30 Warfarin Sodium (Coumadin) 5 mg DAILY@17 PO Last administered on 02/15/17 17: 21; Admin Dose 5 MG; Start 02/14/17 at 17:00 Pantoprazole (Protonix Tab) 40 mg DAILY@06 PO Last administered on 02/16/17 06:00; Admin Dose 40 MG; Start 02/15/17 at 06:00 Acetaminophen/ Hydrocodone Bitart ([place] (5/325)) 1 tab Q4H PRN PO PAIN LEVEL 4 -6; Start 02/14/17 at 14:30 Morphine Sulfate (morphine) 2 mg Q4H PRN IV PAIN LEVEL 7-10; Start 02/14/17 at 14:30 Hydralazine HCl (Apresoline) 50 mg Q8 PO Last administered on 02/15/17 21:17 ; Admin Dose 50 MG; Start 02/14/17 at 22:00 Enoxaparin Sodium (Lovenox) 100 mg Q24H SC Last administered on 02/16/17 08: 04; Admin Dose 100 MG; Start 02/15/17 at 08:00 Hydralazine HCl (Apresoline) 10 mg Q4H PRN IV SBP>170; Start 02/14/17 at 15:30 Metoprolol Tartrate (Lopressor) 5 mg Q4H PRN IV HR>110 Hold SBP<100; Start at 15:30 Ondansetron HCl (Zofran Inj) 4 mg Q6H PRN IV NAUSEA AND/OR VOMITING; Start at 16:00 Acetaminophen (Tylenol Tab) 650 mg Q6H PRN PO PAIN LEVEL 1-3 OR FEVER Last administered on 02/15/17 15:30; Admin Dose 650 MG; Start 02/14/17 at 16:00 Docusate Sodium (Colace) 100 mg Q12H PRN PO CONSTIPATION; Start 02/14/17 at 16 :00 Bisacodyl (Dulcolax) 5 mg DAILY PRN PO CONSTIPATION; Start 02/14/17 at 16:00 Diagnostic Test (Pha) (Accu-Chek) 1 ea 02 XX Last administered on 02/15/17 02 :00; Admin Dose 1 EA; Start 02/15/17 at 02:00 Diagnostic Test (Pha) (Accu-Chek) 1 ea 02 XX Last administered on 02/15/17 02 :00; Admin Dose 1 EA; Start 02/15/17 at 02:00 Miscellaneous Information 1 ea NOTE XX ; Start 02/14/17 at 17:00 Glucose (Glutose) 15 gm Q15M PRN PO DECREASED GLUCOSE; Start 02/14/17 at 17:00 Glucose (Glutose) 22.5 gm Q15M PRN PO DECREASED GLUCOSE; Start 02/14/17 at 17: 00 Dextrose (D50w Syringe) 25 ml Q15M PRN IV DECREASED GLUCOSE; Start 02/14/17 at 17:00 Dextrose (D50w Syringe) 50 ml Q15M PRN IV DECREASED GLUCOSE; Start 02/14/17 at 17:00 Glucagon (Glucagen) 1 mg Q15M PRN IM DECREASED GLUCOSE; Start 02/14/17 at 17: 00 Glucose (Glutose) 15 gm Q15M PRN BUCCAL DECREASED GLUCOSE; Start 02/14/17 at 17:00 LAURO LOAIZA MD Feb 16, 2017 10:58
--- NOTE | 2017-02-16 11:26 | PN ---
Date/Time of Note Date/Time of Note DATE: 02/16/17 TIME: 11:24 Assessment/Plan VTE Prophylaxis VTE Prophylaxis Intervention: contraindicated, LMWH VTE Contraindication Reason: bleeding Lines/Catheters IV Catheter Type (from Nrs): [place] Urinary Cath still in place: No Assessment/Plan Chief Complaint/Hosp Course 1CHFacute on chronic, systolic 2. Chest pain 3.Atrial fibrillation, controlled 4. Renal insufficiency, CKD mild 5. Anemia 6. Morbid obesity 7. Dm type II controlled 8. Hx pacemaker 9. CAD 10. Dyslipidemia 11. Left knee Joint pain with effusion 12. Hx of cholecystectomy 13. Hyponatremia Problems: Assessment/Plan # c/w Lasix # Telemetry monitoring # Nuclear stress ttest negative # c/w Coreg/lisnopril # Fluid restriction # Anemia wup neg so far # c/w Lovenox/coumadin # Will get CT C/T spine , if negative will send home Problems: Subjective 24 Hr Interval Summary Free Text/Dictation Pt complains of neck pain, lower back radiating to left Exam/Review of Systems Vital Signs Vitals Vital Signs Date Time Temp Pulse Resp B/P Pulse Ox O2 Delivery O2 Flow Rate FiO2 02/16/17 11:07 97.7 71 17 116/66 93 02/16/17 08:00 Nasal Cannula 2.0 Intake and Output 02/15/17 02/15/17 02/16/17 15:00 23:00 07:00 Intake Total 600 ml 250 ml Balance 600 ml 250 ml Exam Constitutional: alert, oriented, well developed Psych: nl mood/affect, no complaints Head: atraumatic, normocephalic Eyes: nl conjunctiva ENMT: nl external ears & nose Neck: supple Respiratory: diminished breath sounds Cardiovascular: irregular rhythm Gastrointestinal: soft Genitourinary - Female: nl external genitalia Musculoskeletal: joint tenderness (right shoulder, back) Neurological: DIRECTOR WORK II-XII intact, nl mental status Skin: nl turgor Results Result Diagram: 02/15/17 0548 02/15/17 0548 Results 24 hrs Laboratory Tests Test 02/15/17 12:22 02/15/17 17:20 02/15/17 18:08 02/15/17 21:15 Bedside Glucose 109 119 109 Absolute Reticulocyte Count 0.055 Percent Reticulocyte Count 1.7 H Iron Level 28 L Total Iron Binding Capacity 268 Percent Iron Saturation 10 L Vitamin B12 Level 816 Folate 9.5 Test 02/16/17 07:45 02/16/17 08:21 Bedside Glucose 103 Prothrombin Time 19.5 H Prothrombin Time Ratio 1.5 INR International Normalized Ratio 1.64 Medications Medications Current Medications Atorvastatin Calcium (Lipitor) 40 mg HS PO Last administered on 02/15/17 21: 16; Admin Dose 40 MG; Start 02/14/17 at 21:00 Carvedilol (Coreg) 25 mg BID PO Last administered on 02/16/17 07:49; Admin Dose 25 MG; Start 02/14/17 at 14:30 Isosorbide Mononitrate (Imdur) 60 mg DAILY PO Last administered on 02/16/17 07:48; Admin Dose 60 MG; Start 02/14/17 at 14:30 Lisinopril (Zestril) 5 mg DAILY PO Last administered on 02/16/17 07:49; Admin Dose 5 MG; Start 02/14/17 at 14:30 Nitroglycerin (Nitroglycerin (Sl Tab) 0.4 Mg) 0.4 tab Q4 PRN SL CHEST PAIN; Start 02/14/17 at 14:30 Warfarin Sodium (Coumadin) 5 mg DAILY@17 PO Last administered on 02/15/17 17: 21; Admin Dose 5 MG; Start 02/14/17 at 17:00 Pantoprazole (Protonix Tab) 40 mg DAILY@06 PO Last administered on 02/16/17 06:00; Admin Dose 40 MG; Start 02/15/17 at 06:00 Acetaminophen/ Hydrocodone Bitart ([place] (5/325)) 1 tab Q4H PRN PO PAIN LEVEL 4 -6; Start 02/14/17 at 14:30 Morphine Sulfate (morphine) 2 mg Q4H PRN IV PAIN LEVEL 7-10 Last administered on 02/16/17 11:18; Admin Dose 2 MG; Start 02/14/17 at 14:30 Hydralazine HCl (Apresoline) 50 mg Q8 PO Last administered on 02/15/17 21:17 ; Admin Dose 50 MG; Start 02/14/17 at 22:00 Enoxaparin Sodium (Lovenox) 100 mg Q24H SC Last administered on 02/16/17 08: 04; Admin Dose 100 MG; Start 02/15/17 at 08:00 Hydralazine HCl (Apresoline) 10 mg Q4H PRN IV SBP>170; Start 02/14/17 at 15:30 Metoprolol Tartrate (Lopressor) 5 mg Q4H PRN IV HR>110 Hold SBP<100; Start at 15:30 Ondansetron HCl (Zofran Inj) 4 mg Q6H PRN IV NAUSEA AND/OR VOMITING; Start at 16:00 Acetaminophen (Tylenol Tab) 650 mg Q6H PRN PO PAIN LEVEL 1-3 OR FEVER Last administered on 02/15/17 15:30; Admin Dose 650 MG; Start 02/14/17 at 16:00 Docusate Sodium (Colace) 100 mg Q12H PRN PO CONSTIPATION Last administered on 02/16/17 11:18; Admin Dose 100 MG; Start 02/14/17 at 16:00 Bisacodyl (Dulcolax) 5 mg DAILY PRN PO CONSTIPATION; Start 02/14/17 at 16:00 Diagnostic Test (Pha) (Accu-Chek) 1 ea 02 XX Last administered on 02/15/17 02 :00; Admin Dose 1 EA; Start 02/15/17 at 02:00 Diagnostic Test (Pha) (Accu-Chek) 1 ea 02 XX Last administered on 02/15/17 02 :00; Admin Dose 1 EA; Start 02/15/17 at 02:00 Miscellaneous Information 1 ea NOTE XX ; Start 02/14/17 at 17:00 Glucose (Glutose) 15 gm Q15M PRN PO DECREASED GLUCOSE; Start 02/14/17 at 17:00 Glucose (Glutose) 22.5 gm Q15M PRN PO DECREASED GLUCOSE; Start 02/14/17 at 17: 00 Dextrose (D50w Syringe) 25 ml Q15M PRN IV DECREASED GLUCOSE; Start 02/14/17 at 17:00 Dextrose (D50w Syringe) 50 ml Q15M PRN IV DECREASED GLUCOSE; Start 02/14/17 at 17:00 Glucagon (Glucagen) 1 mg Q15M PRN IM DECREASED GLUCOSE; Start 02/14/17 at 17: 00 Glucose (Glutose) 15 gm Q15M PRN BUCCAL DECREASED GLUCOSE; Start 02/14/17 at 17:00 JAYA MUNROE MD Feb 16, 2017 11:26
--- NOTE | 2017-02-16 11:27 | PDOCDIS ---
Discharge Instructions DIAGNOSIS Discharge Diagnosis Mild CHF Afib HOME CARE INSTRUCTIONS: Special Diet: 1800 calorie ACTIVITY: Activity Restrictions: Slowly Increase Activity FOLLOW UP/APPOINTMENTS Follow-up Plan f/u PCP in 2 weeks f/u Dr Owens in 2-3 weeks PT/INR in 3 days, f/u pcp office JAYA MUNROE MD Feb 16, 2017 11:27
[2017-02-16] MEDS ORDERED: HYDR-3671 PO (11:30)
--- NOTE | 2017-02-16 12:54 | RADRPT ---
PROCEDURE: CT Cervical Spine without contrast. CLINICAL INDICATION: pain TECHNIQUE: A CT of the cervical spine was performed on a multidetector CT scanner utilizing thin s ection axial images from the skull base through the thoracic inlet. Sagittal and coronal reformatte d images were made. The CTDIvol is 22mGy and the DLP is 418mGycm. One or more of the following dose reduction techniques were used: Automated exposure control, Adjustment of the mA and/or kV accordin g to patient size, and/or use of iterative reconstruction technique. COMPARISON: No prior studies are available for comparison. FINDINGS: Reversal of the cervical lordosis. No acute cervical vertebral fracture or subluxation. C2-3: The disk space is preserved in height. Uncovertebral osteophytes and facet arthropathy withou t significant spinal canal or foraminal narrowing. C3-4: Moderate disc height loss. 2 mm disc osteophyte complex with mild spinal canal narrowing. Unco vertebral osteophytes and facet arthropathy with severe right and moderate left foraminal narrowing. C4-5: Moderate to severe disc height loss. 3 mm disc osteophyte complex with mild spinal canal narro wing. Uncovertebral osteophytes with severe right and moderate to severe left foraminal narrowing. C5-6: Severe disc height loss. 2 mm disc osteophyte complex with mild spinal canal narrowing. Uncove rtebral osteophytes with moderate to severe bilateral foraminal narrowing. C6-7: Moderate disc height loss. Uncovertebral osteophytes and facet arthropathy with moderate to s evere bilateral foraminal narrowing. No significant spinal canal narrowing. C7-T1: The disk space is preserved in height. No significant bony spinal canal or bony foraminal n arrowing. IMPRESSION: No acute fracture or subluxation. Moderate to severe discogenic disease C3-4 through C6-7 with advanced foraminal stenoses as detailed . Mild spinal canal narrowing C3-4 through C5-6. RPTAT: AA .Gordo Elizabeth MD, Date Time Electronically viewed and signed by .Gordo Elizabeth MD, on 02/16/2017 12:54 .T/
--- NOTE | 2017-02-16 12:57 | RADRPT ---
PROCEDURE: CT thoracic spine without contrast CLINICAL INDICATION: Back pain. TECHNIQUE: CT scan of the thoracic spine was performed on a multidetector high-resolution CT scann . No IV contrast was administered. One or more of the following dose reduction techniques were us ed: Automated exposure control, Adjustment of the mA and/or kV according to patient size, and/or use of iterative reconstruction technique. DOSE: CTDI = 37mGy and the DLP = 1358mGy-cm. COMPARISON: None available FINDINGS: Cardiac pacemaker lead partially imaged. Cardiomegaly. No acute thoracic compression fracture. Multilevel thoracic disc space narrowing and osteophytes. Bridging anterior osteophytes T3 through T 12. No significant bony spinal canal narrowing. Small right pleural effusion. IMPRESSION: Multilevel thoracic degenerative spondylosis/enthesopathy. No acute thoracic compression fracture or significant bony spinal canal narrowing. Cardiomegaly and small right pleural effusion. RPTAT: AA .Gordo Elizabeth MD, MD Date Time Electronically viewed and signed by .Gordo Elizabeth MD, on 02/16/2017 12:57 .T/
[2017-02-16] MEDS: WARFARIN 5 MG TAB PO SCH (16:56)
--- NOTE | 2017-02-16 22:36 | RADRPT ---
Vent Rate: 83 bpm RR Interval: 0 msec WV Interval: 0 msec QRS Duration: 80 msec QT Interval: 368 msec QTC Interval: 432 msec P-R-T [place]: 0 - 94 - 24 degrees Atrial fibrillation Rightward axis Low voltage QRS ST abnormality, possible digitalis effect Abnormal ECG Electronically Signed By: Ryan Navarro [id number]
--- NOTE | 2017-02-16 22:39 | RADRPT ---
Vent Rate: 81 bpm RR Interval: 0 msec AR Interval: 0 msec QRS Duration: 82 msec QT Interval: 388 msec QTC Interval: 450 msec P-R-T [place]: 0 - 74 - -8 degrees Demand pacemaker, interpretation is based on intrinsic rhythm Atrial fibrillation with premature ventricular or aberrantly conducted complexes Nonspecific ST and T wave abnormality , probably digitalis effect Abnormal ECG Electronically Signed By: Ryan Navarro [id number]
--- NOTE | 2017-02-17 05:46 | DS ---
DATE OF ADMISSION: 02/14/2017 DATE OF DISCHARGE: 02/16/2017 FINAL DISCHARGE DIAGNOSES: 1. Atrial fibrillation, currently rate controlled, previously with some mild RVR. Negative troponi n x3. 2. History of permanent pacemaker for tachybrady syndrome. 3. No tachybrady syndrome status post pacemaker. 4. Congestive heart failure, diastolic, ____ [id number]. 5. Hypertension. 6. Dyslipidemia. 7. Diabetes. 8. Chronic kidney disease. 9. Hyponatremia. 10. Anemia. 11. Cervical spine stenosis. No acute fracture or subluxation, moderate ____ C3 through C4, ____ C 6-7, left foramen stenosis and C-spine multilevel and thoracic degenerative spine ____ spondylosis. HISTORY OF PRESENT ILLNESS AND HOSPITAL COURSE: This is an 81-year-old woman with a history of CHF, presented to the emergency department complaining of moderate substernal chest pain since yesterday . ____ breath, ____ feeling short of breath. On arrival to ED, vital signs were stable. The patie nt had serial troponins that were negative. Had a chest x-ray. Patient also had a lung scan that s howed low probability ____. Had venous study that showed no sonographic evidence for deep vein thro mbosis ____. Also had a chest x-ray that showed cardiomegaly. The patient was started on some IV L asix, seen by Dr. Owens for cardiology consultation. The patient also had a Lexiscan test done wh ich showed no ST-T wave changes, no stress-induced ischemia. The patient was also having some neck pain, had a cervical spine, C-spine that showed no acute fracture or subluxation, moderate to severe discogenic disease C3 to C4 through ____ stenosis and also had ____ . No acute thoracic compressio n fracture was ____ narrowing. The patient was seen ____ chest pain resolved. Cardiology ____ disc harged home. DISCHARGE MEDICATIONS: 1. Aspirin 81 mg p.o. daily. 2. Coumadin 5. 3. Patient was also continued on Lovenox in the hospital. INR 1.5. 4. ____. 5. Coreg 25 b.i.d. 6. Hydralazine 50 q.8. 7. Imdur 60. 8. Lisinopril 5. 9. KCl 20. 10. Lasix 40. 11. Glipizide 5. 12. Metformin 500. The patient was instructed to follow ____ outpatient ____. Patient was instructed to follow with Dr Nicole Owens in 2 to 3 weeks. Dictated By: JAYA MADDOX/JUSTO Conf#: [id number] DID#: [id number] CC: ASHLEY KAMINSKI MD;*EndCC*
== END 2017-02-16 18:30 | disposition home or self-care (01) | DRG 292 ==
LOC: E/R 23:44 → TEL 02-14 05:48
PROVIDERS: ADMIT Internal Medicine Nephrology; ATTEND Internal Medicine Nephrology
DX: I50.43 Acute on chronic combined systolic (congestive) and diastolic (congestive) heart failure (principal); I13.0 Hypertensive heart and chronic kidney disease with heart failure and stage 1 through stage 4 chronic kidney disease, or unspecified chronic kidney disease; E11.22 Type 2 diabetes mellitus with diabetic chronic kidney disease; Z68.41 Body mass index [BMI] 40.0-44.9, adult; I48.91 Unspecified atrial fibrillation; E87.1 Hypo-osmolality and hyponatremia; M48.02 Spinal stenosis, cervical region; N18.9 Chronic kidney disease, unspecified; E78.5 Hyperlipidemia, unspecified; D64.9 Anemia, unspecified; Z79.01 Long term (current) use of anticoagulants; Z79.82 Long term (current) use of aspirin; Z95.0 Presence of cardiac pacemaker; E66.01 Morbid (severe) obesity due to excess calories; I25.10 Atherosclerotic heart disease of native coronary artery without angina pectoris; R00.0 Tachycardia, unspecified
CPT/HCPCS: 36415; 71010; 72125; 72128; 78452; 78582; 80048; 80053; 82270; 82550; 82553; 82607; 82746; 82962; 83036; 83540; 83880; 84484; 85025; 85045; 85378; 85610; 85730; 90686; 93005; 93017; 93306; 93970; 96372; 96374; J1940; A9500; A9505; A9540; J1650; J1815; J2270; J2785

== ENCOUNTER 2017-02-17 16:05 | Inpatient (IN) | payer MEDICARE, OTHER ==
[~2017-02-17] VITALS: Ht 152.4 cm; Wt 95.4 kg
[~2017-02-17 16:05] MED LIST changes: +HYDR-3671 PO; -HYDR-3672 PO
[2017-02-17 18:00] VITALS: PULSE 80
[2017-02-17] MEDS ORDERED: NITROGLYCERIN (SL) 0.4 MG TAB SL PRN (19:00)
[2017-02-17 20:00] VITALS: BP 123/68; PULSE 82; RESP 17
[2017-02-17] MEDS ORDERED: GLUCAGON 1 MG INJ IM PRN (20:00)
[2017-02-17] MEDS ORDERED: GLUCOSE GEL 15 GRAM TUBE PO PRN ×2 (20:00)
[2017-02-17] MEDS ORDERED: DEXTROSE 50% 50 ML SYRINGE IV PRN ×2 (20:00)
[2017-02-17] MEDS ORDERED: GLUCOSE GEL 15 GRAM TUBE BUCCAL PRN (20:00)
[2017-02-17 20:10] VITALS: BP 135/70; PULSE 70; PULSE 80; RESP 18
[2017-02-17] MEDS: SOD CHLORIDE 0.9% 1,000 ML IV SCH (20:30)
[2017-02-17] MEDS: INSULIN ASPART [NOVOLOG] 3 ML PEN SC SCH (21:00)
[2017-02-17] MEDS: WARFARIN 5 MG TAB PO SCH (21:49)
--- NOTE | 2017-02-17 23:18 | QN ---
Documentation Comment [id number] ASHLEY KAMINSKI MD Feb 17, 2017 23:18
--- NOTE | 2017-02-17 23:18 | QN ---
Documentation Comment [id number] ASHLEY KAMINSKI MD Feb 17, 2017 23:18
--- NOTE | 2017-02-17 23:18 | QN ---
Documentation Comment [id number] ASHLEY KAMINSKI MD Feb 17, 2017 23:18
[2017-02-17] MEDS ORDERED: ONDANSETRON 4 MG INJ IV PRN (23:30)
[2017-02-17] MEDS ORDERED: NACL 0.9% 3 ML SYG IV SCH (23:30)
[2017-02-17] MEDS ORDERED: BISACODYL (EC) 5 MG TAB PO PRN (23:30)
[2017-02-17] MEDS ORDERED: DOCUSATE SODIUM 100 MG CAP PO PRN (23:30)
[2017-02-17] MEDS ORDERED: MAGNESIUM HYDROXIDE 30ML CUP PO PRN (23:30)
[2017-02-18] VITALS (11 sets, daily range): BP systolic 103–142; BP diastolic 58–81; PULSE 78–110; RESP 17–20
[2017-02-18] MEDS: ACCU-CHEK XX SCH ×2 (02:00)
[2017-02-18] MEDS: INSULIN ASPART [NOVOLOG] 3 ML PEN SC SCH ×4 (08:00→21:00)
[2017-02-18] MEDS: ATORVASTATIN 40 MG TAB PO SCH (08:40)
[2017-02-18] MEDS: ACETAMINOPHEN 325 MG TAB PO PRN (08:40)
[2017-02-18] MEDS: LISINOPRIL 5 MG TAB PO SCH (08:41)
[2017-02-18] MEDS: ISOSORBIDE MONONITRATE(SR)60 MG TAB PO SCH (08:41)
[2017-02-18] MEDS: FUROSEMIDE 40 MG TAB PO SCH (08:41)
--- NOTE | 2017-02-18 08:42 | HP ---
DATE OF ADMISSION: 02/17/2017 HISTORY OF PRESENT ILLNESS: Shey Salgado is an 81-year-old female who was recently discharged from this hospital with atrial fibrillation, history of pacemaker placement for tachy-mercedes syndrome, con gestive heart failure, [id number], hypertension, dyslipidemia, diabetes mellitus, CKD, hyponat remia, anemia, history of cervical spine stenosis. Patient went home on aspirin, Coumadin, Coreg, h ydralazine, Imdur and lisinopril. The patient was taken to [facility] for near syncopal ep isode. The patient ____ palpitations, was weak and was sent back here for further management, and i s being admitted for further management. The patient's records from [facility] reviewed, d iscussed with Dr. Aguero. Patient presented with very short of breath and decreased responsivenes s. Patient received nitroglycerin and received aspirin in the ER. The patient is awake, alert, brendan ented at the time of this examination, and is going to be admitted for further management. PAST MEDICAL HISTORY: As mentioned, CHF, arthritis, asthma, AFib, diabetes mellitus, hypertension, mitral regurgitation, tricuspid regurgitation and ____ history of cholecystectomy, history of abdomi nal surgery. ALLERGY HISTORY: LISTED NEGATIVE. FAMILY HISTORY: Negative. SOCIAL HISTORY: Negative. MEDICATION HISTORY: As mentioned above. REVIEW OF SYSTEMS: HEENT: Unremarkable. RESPIRATORY: No shortness of breath. CARDIOVASCULAR: No chest pain, no palpitations or rubs ____. ABDOMEN: Unremarkable. EXTREMITIES: Unremarkable. CENTRAL NERVOUS SYSTEM: ____. PHYSICAL EXAMINATION: GENERAL: The patient is overweight, obese female, awake, alert. VITAL SIGNS: Pulse 80, blood pressure noted to have 150. HEENT: Head is atraumatic, normocephalic. Pupils equal, reactive to light. NECK: Supple. There is no JVD. LUNGS: Clear. CARDIOVASCULAR: S1, S2 normal ____. ABDOMEN: Soft, obese. Bowel sounds positive. No palpable mass or hepatosplenomegaly. No guarding , rebound tenderness. EXTREMITIES: No cyanosis, clubbing, edema. CENTRAL NERVOUS SYSTEM: The patient is awake, alert. No focal deficit. LABORATORY DATA: EKG shows patient has atrial fibrillation ____ Hospital recording. Results ____ 2 6.4, platelet count of 245. Sodium 130, potassium 3.8, BUN 31, creatinine 1.97. INR 1.9. Chest x- ray is recorded as moderate cardiomegaly ____ borderline prominent pacemaker noted. IMPRESSION: 1. Near syncopal episode. 2. Rule out vasovagal. 3. Rule out hypertension. 4. Patient has hyponatremia. 5. Underlying chronic kidney disease with possible acute kidney injury. 6. Arthritis. 7. Obesity. 8. Degenerative joint disease. 9. Dyslipidemia. 10. Anemia. PLAN: Monitor this patient. Continue home medications. ____ daily. Continue sliding scale. Juany ent's troponin will be checked. Orders were done. Dictated By: ASHLEY MALIK/JUSTO Conf#: [id number] DID#: [id number]
--- NOTE | 2017-02-18 14:21 | PN ---
Date/Time of Note Date/Time of Note DATE: 02/18/17 TIME: 14:17 Assessment/Plan VTE Prophylaxis VTE Prophylaxis Intervention: other Lines/Catheters IV Catheter Type (from Nrs): Peripheral IV Urinary Cath still in place: No Assessment/Plan Chief Complaint/Hosp Course 81 y/o with # Presyncopy could be vasovagal/ neuro/anemia vs spinal stenosis # hx CHF, systolic # Chest pain with recent stress test negative, VQ scan negative # .Atrial fibrillation, controlled #. Renal insufficiency, CKD mild #. Anemia FOBT negative, 1b12 , folic acid normal # Morbid obesity # Dm type II controlled # Hx pacemaker #CAD #. 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 Per family pt went to bathroom when came back, started feeling dizzy never passed out but felt dizzy for almost 25 minutes Exam/Review of Systems Vital Signs Vitals Vital Signs Date Time Temp Pulse Resp B/P Pulse Ox O2 Delivery O2 Flow Rate FiO2 02/18/17 12:02 82 02/18/17 11:45 98.1 20 116/71 96 Intake and Output 02/17/17 02/17/17 02/18/17 15:00 23:00 07:00 Intake Total 400 ml Balance 400 ml Exam GeN: Obese Neck:supple CVS:Irregular irregular Lungs:clear Abdomen:soft, non tender Ext : no edema Neuo : non focal Results Result Diagram: 02/18/17 0521 02/18/17520 Results 24 hrs Laboratory Tests Test 02/17/17 20:57 02/17/17 21:00 02/18/17 00:15 02/18/17 05:21 Prothrombin Time 19.5 H 21.6 H Prothrombin Time Ratio 1.5 1.7 INR International Normalized Ratio 1.64 1.86 Troponin I < 0.012 0.015 0.017 Bedside Glucose 144 Creatine Kinase 61 61 Creatine Kinase Index 1.2 1.1 Creatinine Kinase MB (Mass) 0.75 0.68 White Blood Count 6.6 Red Blood Count 2.88 L Hemoglobin 8.0 L Hematocrit 25.7 L Mean Corpuscular Volume 89.2 Mean Corpuscular Hemoglobin 27.8 L Mean Corpuscular Hemoglobin Concent 31.1 L Red Cell Distribution Width 14.6 H Platelet Count 246 Mean Platelet Volume 11.1 H Neutrophils % 68.6 Lymphocytes % 15.7 Monocytes % 11.4 H Eosinophils % 3.2 Basophils % 0.6 Nucleated Red Blood Cells % 0.0 Neutrophils # 4.5 Lymphocytes # 1.0 Monocytes # 0.8 Eosinophils # 0.2 Basophils # 0.0 Nucleated Red Blood Cells # 0.0 Sodium Level 137 Potassium Level 4.3 Chloride Level 99 Carbon Dioxide Level 31 Anion Gap 11 Blood Urea Nitrogen 38 H Creatinine 1.54 H Glucose Level 89 Calcium Level 9.1 Total Bilirubin 0.2 Direct Bilirubin 0.00 Indirect Bilirubin 0.2 Aspartate Amino Transf (AST/SGOT) 32 Alanine Aminotransferase (ALT/SGPT) 42 Alkaline Phosphatase 76 Total Protein 6.0 L Albumin 2.9 L Globulin 3.10 Albumin/Globulin Ratio 0.93 Test 02/18/17 08:26 02/18/17 11:50 Bedside Glucose 105 119 Medications Medications Current Medications Atorvastatin Calcium (Lipitor) 40 mg DAILY PO Last administered on 02/18/17 08:40; Admin Dose 40 MG; Start 02/18/17 at 09:00 Carvedilol (Coreg) 25 mg BID PO Last administered on 02/18/17 08:41; Admin Dose 25 MG; Start 02/17/17 at 21:00 Furosemide (Lasix) 40 mg DAILY PO Last administered on 02/18/17 08:41; Admin Dose 40 MG; Start 02/18/17 at 09:00 Hydralazine HCl (Apresoline) 50 mg Q8 PO Last administered on 02/18/17 05:58 ; Admin Dose 50 MG; Start 02/17/17 at 22:00 Isosorbide Mononitrate (Imdur) 60 mg DAILY PO Last administered on 02/18/17 08:41; Admin Dose 60 MG; Start 02/18/17 at 09:00 Lisinopril (Zestril) 5 mg DAILY PO Last administered on 02/18/17 08:41; Admin Dose 5 MG; Start 02/18/17 at 09:00 Nitroglycerin (Nitroglycerin (Sl Tab) 0.4 Mg) 0.4 tab [id number] PRN SL CHEST PAIN; Start 02/17/17 at 19:00 Warfarin Sodium (Coumadin) 5 mg DAILY@17 PO Last administered on 02/17/17 21: 49; Admin Dose 5 MG; Start 02/17/17 at 21:00 Diagnostic Test (Pha) (Accu-Chek) 1 ea 02 XX ; Start 02/18/17 at 02:00 Diagnostic Test (Pha) (Accu-Chek) 1 ea 02 XX Last administered on 02/18/17 02 :00; Admin Dose 1 EA; Start 02/18/17 at 02:00 Miscellaneous Information 1 ea NOTE XX ; Start 02/17/17 at 20:00 Glucose (Glutose) 15 gm Q15M PRN PO DECREASED GLUCOSE; Start 02/17/17 at 20:00 Glucose (Glutose) 22.5 gm Q15M PRN PO DECREASED GLUCOSE; Start 02/17/17 at 20: 00 Dextrose (D50w Syringe) 25 ml Q15M PRN IV DECREASED GLUCOSE; Start 02/17/17 at 20:00 Dextrose (D50w Syringe) 50 ml Q15M PRN IV DECREASED GLUCOSE; Start 02/17/17 at 20:00 Glucagon (Glucagen) 1 mg Q15M PRN IM DECREASED GLUCOSE; Start 02/17/17 at 20: 00 Glucose 15 gm 15 gm Q15M PRN BUCCAL DECREASED GLUCOSE; Start 02/17/17 at 20:00 Sodium Chloride (NS) 1,000 ml @ 30 mls/hr Q24H IV Last administered on 20:30; Admin Dose 30 MLS/HR; Start 02/17/17 at 20:30 Ondansetron HCl (Zofran Inj) 4 mg Q6H PRN IV NAUSEA AND/OR VOMITING; Start at 23:30 Acetaminophen (Tylenol Tab) 650 mg Q6H PRN PO PAIN LEVEL 1-3 OR FEVER Last administered on 02/18/17 08:40; Admin Dose 650 MG; Start 02/17/17 at 23:30 Docusate Sodium (Colace) 100 mg Q12H PRN PO CONSTIPATION Last administered on 02/18/17 08:42; Admin Dose 100 MG; Start 02/17/17 at 23:30 Magnesium Hydroxide (Milk Of Mag) 30 ml DAILY PRN PO CONSTIPATION; Start 02/17 at 23:30 Bisacodyl (Dulcolax) 5 mg DAILY PRN PO CONSTIPATION; Start 02/17/17 at 23:30 JAYA MUNROE MD Feb 18, 2017 14:20
--- NOTE | 2017-02-18 16:47 | RADRPT ---
PROCEDURE: US carotid arteries. CLINICAL INDICATION: Dizziness. TECHNIQUE: Multiple sonographic images of the carotid arteries and vertebral arteries were obtaine d utilizing rawls scale, duplex, and color-flow imaging. The images were reviewed on a PACS workstati on. COMPARISON: No prior studies are available for comparison. FINDINGS: Evaluation of the right carotid bifurcation region reveals mild atherosclerotic disease. Evaluation of the left carotid bifurcation region reveals mild atherosclerotic disease. There is antegrade flow within the vertebral arteries bilaterally. RIGHT CAROTID MEASUREMENTS: Common Carotid [id number] (cm/sec) Internal Carotid Artery 74 (cm/sec) External Carotid Artery 53 (cm/sec) Vertebral Artery 46 (cm/sec) Internal Carotid/Common Carotid2.1 LEFT CAROTID MEASUREMENTS: Common Carotid [id number] (cm/sec) Internal Carotid Artery 58 (cm/sec) External Carotid Artery 62 (cm/sec) Vertebral Artery 31 (cm/sec) Internal Carotid/Common Carotid1.8 Validated velocity measurements with angiographic measurements. Velocity criteria are extrapolated f rom diameter data as defined by the Society of Radiologists in Ultrasound Consensus Conference. Radi ology 2003; 229;340-346. This study does indirectly reference the measurement of the distal ICA larissa meter as the denominator for stenosis measurement. IMPRESSION: 1. Less than 50% stenosis bilaterally in the internal carotid arteries. 2. Normal antegrade flow in the vertebral arteries bilaterally. RPTAT: QQ SRU Consensus Conference Criteria for the Diagnosis of Carotid Artery Stenosis* Degree of Stenosis, % ICA PSV, cm/sec Plaque Estimate, % ICA/CCA PSV Ratio Normal <125 None <2.0 <50 <125 <50 <2.0 50 69 125-230 >50 2.0-4.0 >70 but less than near occlusion >230 >50 <4.0 Near occlusion High, low, or undetectable Visible Variable Total occlusion Undetectable Visible, no detectable lumen Not applicable *Cartoid artery stenosis: rawls-scale and Doppler US diagnosis. Society of Radiologists in Ultrasound Consensus Conference. Radiology 2003; 229: 340-346 .Josemanuel Raya MD, Date Time Electronically viewed and signed by .Josemanuel Raya MD, on 02/18/2017 16:47 .R/
[2017-02-18] MEDS: WARFARIN 5 MG TAB PO SCH (17:33)
[2017-02-18] MEDS: SOD CHLORIDE 0.9% 1,000 ML IV SCH (21:05)
--- NOTE | 2017-02-18 21:53 | RADRPT ---
PROCEDURE: CT BRAIN WITHOUT CONTRAST. CLINICAL INDICATION: Headache. Rule out mass/bleed. TECHNIQUE: A CT of the brain was performed on a multidetector high-resolution CT scanner utilizing axial imaging from the skull base through the vertex without IV contrast. Multiplanar reformatted images were made. Images were reviewed on a PACS workstation. The CTDIvol is 43.9 mGy and the DLP is 720.2 mGycm. One or more of the following dose reduction techniques were used: - Automated exposure control. - Adjustment of the mA and/or kV according to patient size. - Use of iterative reconstruction technique. COMPARISON: None FINDINGS: The posterior fossa structures are unremarkable. The nelly, midbrain, and medulla appear to be with n ormal limits. There is no evidence of acute intracranial hemorrhage, infarct, or extra-axial fluid collection. No gross mass effect or midline shift. Cerebral sulci, cisternal spaces, and ventricles are prominent. Periventricular/subcortical white matter lucencies are noted. There is calcifications of the bilater al basal ganglia. The visualized paranasal sinuses are clear. The mastoid air cells are well-aerated. The calvarium is unremarkable. IMPRESSION: 1. No evidence of acute intracranial hemorrhage, infarct, or extra-axial fluid collection. 2. 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 RPTAT: AAPP Physician Yoshi Date Time Electronically viewed and signed by Physician Yoshi on 02/18/2017 21:53 ROBERT/
[2017-02-19] VITALS (10 sets, daily range): BP systolic 102–138; BP diastolic 59–70; PULSE 71–81; RESP 19–20
[2017-02-19] MEDS: ACCU-CHEK XX SCH ×2 (02:00)
[2017-02-19] MEDS: INSULIN ASPART [NOVOLOG] 3 ML PEN SC SCH ×4 (08:00→21:00)
--- NOTE | 2017-02-19 08:56 | CONS ---
Date/Time of Note Date/Time of Note DATE: 02/19/17 TIME: 08:55 Assessment/Plan Assessment/Plan Additional Assessment/Plan Date of consultation: 02/18/2017 Requesting physician: Dr. Handy Consulting service: Neurosurgery This is a 81-year-old female with past medical history significant for coronary artery disease, congestive heart failure, atrial fibrillation, diabetes, or kidney disease, cardiac valvular regurgitation, recent pacemaker placement for arrhythmia who apparently had a near syncopal episode when she tried to go to the restroom and as she was sitting on the toilet she had a near total blackout. The patient is Lithuanian-speaking only and am able to speak with her and her 2 sons at bedside with the help of a nurse's employment assistant. The patient and the family do not believe that she had a loss of consciousness but became lightheaded and was having some dizziness and possible vertigo. She has not had this happen in the past. She did not hit her head. The patient's symptoms resolved quickly. The patient has no current new complaints at this time. The chart indicates that the patient has had history of prior cervical stenosis. The patient and her family tell me that she does not have any clumsiness of her upper or lower extremities. At times she gets numbness of her upper extremities in a diffuse fashion that is transient in nature only. The patient does not do much housework anymore as a rest of the family tries to help her. The patient and her family deny any imbalance or difficulty with gait for the patient. The patient only has mild neck pain on a usual basis. She denies any weakness of her upper or lower extremities what she says that overall she feels fatigued and deconditioned. She does not recall whether any point she had any MR imaging of her cervical spine. Past medical history: Please see above, asthma, plus history of cholecystectomy , history of "abdominal surgery," anemia Allergies: No known drug allergies Social history: The patient lives with family. She denies smoking tobacco, using alcoholic beverages and using illicit or recreational drugs. Family history: Noncontributory Medications: The patient home medications include aspirin, Coumadin, Coreg, hydralazine, Imdur and lisinopril Review of systems: Please see above for pertinent positives and negatives: Patient denies any seizures or convulsions, current chest pain or shortness of breath, diplopia or blurriness of her vision. Physical examination: The patient is seen at bedside next to her 2 sons. She is sitting up in bed comfortably. She is awake, alert and oriented 4. Her language is fluent in Lithuanian. Her face is symmetric. Her tongue is midline. Muscle bulk and tone is normal bilateral upper and lower extremities. He is no Lupe sign present bilaterally. Toes are downgoing bilaterally. Deep tendon reflexes are 1+ bilateral upper and lower extremities. Motor strength is at least 4+ out of 5 bilateral upper and lower extremity's proximally and distally. Sensation to light touch is decreased bilateral fingers. Gait testing has been deferred per patient request. The patient has decreased range of cervical movement flexion, extension and lateral rotation by less than 25%. Spurling maneuver does not cause any radiating pain down the patient's upper extremities. The patient has mild tenderness involving the posterior cervical spine. Imaging: There is no current imaging of the patient's spine available for my review. Assessment/plan: The patient with a near syncopal episode as discussed above. The patient at this point appears to be at her baseline neurologic status. The patient near syncopal episode is most likely related to the cardiovascular system and possibly related to a vasovagal episode. However as is already being done patient needs further cardiac evaluation. Based on the patient's signs and symptoms she does not appear to have any gross evidence of cervical myelopathy as discussed above. The chart indicates history of cervical stenosis and is not clear whether this diagnosis was made based on prior imaging of her cervical spine. Even if the patient does have some pre-existing cervical stenosis, it does not explain the patient's near syncopal episode. Given the fact that the patient has a pacemaker in place and an MRI of her cervical spine cannot be done, the gold standard for evaluation of the patient' s cervical spine in regards to cervical stenosis would be a CT myelogram which is considered a somewhat invasive procedure as it requires a lumbar puncture and injection of intrathecal dye. Since in this particular case, the patient does not have convincing evidence of cervical myelopathy as a result of possible cervical stenosis, I do not recommend that the patient have any further imaging of her cervical spine including CT myelogram at this point. If the patient develops signs and symptoms of cervical myelopathy, then she would definitely need further imaging studies of her cervical spine. This can be done on an outpatient basis. The patient can follow-up with neurosurgery on an as needed. There is no acute neurosurgical intervention indicated at this time. BANDAR MALDONADO MD Feb 19, 2017 08:56
[2017-02-19] MEDS: ATORVASTATIN 40 MG TAB PO SCH (09:05)
[2017-02-19] MEDS: ISOSORBIDE MONONITRATE(SR)60 MG TAB PO SCH (09:05)
[2017-02-19] MEDS: LISINOPRIL 5 MG TAB PO SCH (09:06)
[2017-02-19] MEDS: FUROSEMIDE 40 MG TAB PO SCH (09:06)
--- NOTE | 2017-02-19 11:16 | PN ---
WADE SMITH 02/19/17 1116: Date/Time of Note Date/Time of Note DATE: 02/19/17 TIME: 11:14 Assessment/Plan VTE Prophylaxis VTE Prophylaxis Intervention: LMWH Lines/Catheters IV Catheter Type (from Nrsg): Peripheral IV Urinary Cath still in place: No Assessment/Plan Chief Complaint/Hosp Course 1. Presyncopy could be vasovagal/ neuro/anemia vs spinal stenosis 2. hx CHF, systolic 3. Chest pain with recent stress test negative, VQ scan negative 4. Atrial fibrillation, controlled 5. Renal insufficiency, CKD mild 6. Anemia FOBT negative, b12 , folic acid normal 7. Morbid obesity 8 Dm type II controlled 9. Hx pacemaker 10. CAD 11. Dyslipidemia 12. right ankle pain Problems: Assessment/Plan 1. continue telemetry 2. continue current regime Subjective 24 Hr Interval Summary Musculoskeletal: bone/joint pain (right knee) Exam/Review of Systems Vital Signs Vitals Vital Signs Date Time Temp Pulse Resp B/P Pulse Ox O2 Delivery O2 Flow Rate FiO2 02/19/17 08:08 79 02/19/17 07:54 98.0 19 138/70 95 Intake and Output 02/18/17 02/18/17 02/19/17 15:00 23:00 07:00 Intake Total 950 ml 500 ml Output Total 700 ml Balance 250 ml 500 ml Exam Constitutional: alert Eyes: nl conjunctiva ENMT: nl external ears & nose Neck: supple Respiratory: clear to auscultation Cardiovascular: irregular rhythm Musculoskeletal: range of motion (decreased right ankle) Results Result Diagram: 02/19/17 0659 02/19/17 0659 Results 24 hrs Laboratory Tests Test 02/18/17 11:50 02/18/17 17:35 02/18/17 20:16 02/19/17 02:23 Bedside Glucose 119 139 127 102 Test 02/19/17 06:59 02/19/17 08:57 White Blood Count 6.5 Red Blood Count 2.93 L Hemoglobin 8.3 L Hematocrit 26.4 L Mean Corpuscular Volume 90.1 Mean Corpuscular Hemoglobin 28.3 L Mean Corpuscular Hemoglobin Concent 31.4 L Red Cell Distribution Width 14.6 H Platelet Count 243 Mean Platelet Volume 11.3 H Neutrophils % 72.1 Lymphocytes % 14.0 L Monocytes % 9.7 Eosinophils % 3.4 Basophils % 0.5 Nucleated Red Blood Cells % 0.0 Neutrophils # 4.7 Lymphocytes # 0.9 Monocytes # 0.6 Eosinophils # 0.2 Basophils # 0.0 Nucleated Red Blood Cells # 0.0 Prothrombin Time 24.0 H Prothrombin Time Ratio 1.9 INR International Normalized Ratio 2.12 Sodium Level 136 Potassium Level 3.9 Chloride Level 102 Carbon Dioxide Level 29 Anion Gap 9 Blood Urea Nitrogen 35 H Creatinine 1.41 H Glucose Level 91 Calcium Level 9.1 Bedside Glucose 104 Medications Medications Current Medications Atorvastatin Calcium (Lipitor) 40 mg DAILY PO Last administered on 02/19/17 09:05; Admin Dose 40 MG; Start 02/18/17 at 09:00 Carvedilol (Coreg) 25 mg BID PO Last administered on 02/19/17 09:07; Admin Dose 25 MG; Start 02/17/17 at 21:00 Furosemide (Lasix) 40 mg DAILY PO Last administered on 02/19/17 09:06; Admin Dose 40 MG; Start 02/18/17 at 09:00 Hydralazine HCl (Apresoline) 50 mg Q8 PO Last administered on 02/19/17 06:41 ; Admin Dose 50 MG; Start 02/17/17 at 22:00 Isosorbide Mononitrate (Imdur) 60 mg DAILY PO Last administered on 02/19/17 09:05; Admin Dose 60 MG; Start 02/18/17 at 09:00 Lisinopril (Zestril) 5 mg DAILY PO Last administered on 02/19/17 09:06; Admin Dose 5 MG; Start 02/18/17 at 09:00 Nitroglycerin (Nitroglycerin (Sl Tab) 0.4 Mg) 0.4 tab [id number] PRN SL CHEST PAIN; Start 02/17/17 at 19:00 Warfarin Sodium (Coumadin) 5 mg DAILY@17 PO Last administered on 02/18/17 17: 33; Admin Dose 5 MG; Start 02/17/17 at 21:00 Diagnostic Test (Pha) (Accu-Chek) 1 ea 02 XX Last administered on 02/19/17 02 :00; Admin Dose 1 EA; Start 02/18/17 at 02:00 Diagnostic Test (Pha) (Accu-Chek) 1 ea XX Last administered on 02/19/17 02 :00; Admin Dose 1 EA; Start 02/18/17 at 02:00 Miscellaneous Information 1 ea NOTE XX ; Start 02/17/17 at 20:00 Glucose (Glutose) 15 gm Q15M PRN PO DECREASED GLUCOSE; Start 02/17/17 at 20:00 Glucose (Glutose) 22.5 gm Q15M PRN PO DECREASED GLUCOSE; Start 02/17/17 at 20: 00 Dextrose (D50w Syringe) 25 ml Q15M PRN IV DECREASED GLUCOSE; Start 02/17/17 at 20:00 Dextrose (D50w Syringe) 50 ml Q15M PRN IV DECREASED GLUCOSE; Start 02/17/17 at 20:00 Glucagon (Glucagen) 1 mg Q15M PRN IM DECREASED GLUCOSE; Start 02/17/17 at 20: 00 Glucose 15 gm 15 gm Q15M PRN BUCCAL DECREASED GLUCOSE; Start 02/17/17 at 20:00 Sodium Chloride (NS) 1,000 ml @ 30 mls/hr Q24H IV Last administered on 21:05; Admin Dose 30 MLS/HR; Start 02/17/17 at 20:30 Ondansetron HCl (Zofran Inj) 4 mg Q6H PRN IV NAUSEA AND/OR VOMITING; Start at 23:30 Acetaminophen (Tylenol Tab) 650 mg Q6H PRN PO PAIN LEVEL 1-3 OR FEVER Last administered on 02/18/17 08:40; Admin Dose 650 MG; Start 02/17/17 at 23:30 Docusate Sodium (Colace) 100 mg Q12H PRN PO CONSTIPATION Last administered on 02/18/17 08:42; Admin Dose 100 MG; Start 02/17/17 at 23:30 Magnesium Hydroxide (Milk Of Mag) 30 ml DAILY PRN PO CONSTIPATION; Start 02/17 at 23:30 Bisacodyl (Dulcolax) 5 mg DAILY PRN PO CONSTIPATION; Start 02/17/17 at 23:30 JAYA MUNROE MD 02/19/17 1800: Exam/Review of Systems Results Result Diagram: 02/19/17 0659 02/19/17 0659 WADE AGUIAR Feb 19, 2017 11:16 JAYA MUNROE MD Feb 19, 2017 18:00
--- NOTE | 2017-02-19 11:26 | CONS ---
DATE OF ADMISSION: 02/17/2017 DATE OF CONSULTATION: TYPE OF CONSULTATION: Gastroenterology. Dear Dr. Munroe and Dr. Kaminski: Thank you for asking me to see Mrs. Salgado in GI consultation. HISTORY OF PRESENT ILLNESS: As you know, the patient is an 81-year-old female who was admi tted to the [facility] because of possible syncopal episode. Subsequently, because of low hemoglobin she was transferred to [facility]. She is known to have multiple medic al problems. She has got anemia and hence the GI consultation is requested. She has history of atr ial fibrillation, pacemaker insertion for tachybrady syndrome, history of arteriosclerotic heart dis ease, history of hypertension, dyslipidemia, diabetes, chronic renal failure, electrolyte imbalance, history of cervical stenosis. MEDICATIONS: Prior to admission include: 1. Coumadin. 2. Aspirin. 3. Coreg. 4. Hydralazine. 5. Imdur. 6. Lisinopril. REVIEW OF SYSTEM: Positive for arteriosclerotic heart disease, pacemaker insertion, atrial fibrilla tion, diabetes, hypertension, history of cholecystectomy in the past, history of abdominal surgery, the reason is not known. No history of vomiting blood or passing blood from the rectum. PHYSICAL EXAMINATION: GENERAL: The patient is an 81-year-old female who at this time she is alert, she is not in distress. VITAL SIGNS: Afebrile, blood pressure is 138/70. CARDIOVASCULAR: Heart sounds well heard. She does have atrial fibrillation and a pacemaker. LUNGS: Occasional rales. ABDOMEN: Showed unremarkable findings. LABORATORY WORKUP: Prothrombin time is , INR is 2.12. The hemoglobin is 8.3, hematocrit 26.4, WBC 6500. Chemistry: Potassium 3.9, creatinine is 1.41, BUN is 35. CLINICAL IMPRESSION: The patient presenting with history of severe anemia, rule out peptic ulcer di sease, rule out gastrointestinal malignancy, anemia could certainly be anemia of chronic disease. She has multiple medical problems including atrial fibrillation, pacemaker insertion, hypertension, diabetes. PLAN: At this time, recommend upper endoscopy and lower endoscopy and I will be happy to follow thi s patient with you. Once again, doctor, thank you for this consultation. Dictated By: JAIMEE ABRAHAM/JUSTO Conf#: [id number] [facility]#: [id number] CC: ASHLEY KAMINSKI MD; JAYA MUNROE;*End*
--- NOTE | 2017-02-19 11:26 | CONS ---
DATE OF ADMISSION: 02/17/2017 DATE OF CONSULTATION: TYPE OF CONSULTATION: Gastroenterology. Dear Dr. Munroe and Dr. Kaminski: Thank you for asking me to see Mrs. Salgado in GI consultation. HISTORY OF PRESENT ILLNESS: As you know, the patient is an 81-year-old female who was admi tted to the [facility] because of possible syncopal episode. Subsequently, because of low hemoglobin she was transferred to [facility]. She is known to have multiple medic al problems. She has got anemia and hence the GI consultation is requested. She has history of atr ial fibrillation, pacemaker insertion for tachybrady syndrome, history of arteriosclerotic heart dis ease, history of hypertension, dyslipidemia, diabetes, chronic renal failure, electrolyte imbalance, history of cervical stenosis. MEDICATIONS: Prior to admission include: 1. Coumadin. 2. Aspirin. 3. Coreg. 4. Hydralazine. 5. Imdur. 6. Lisinopril. REVIEW OF SYSTEM: Positive for arteriosclerotic heart disease, pacemaker insertion, atrial fibrilla tion, diabetes, hypertension, history of cholecystectomy in the past, history of abdominal surgery, the reason is not known. No history of vomiting blood or passing blood from the rectum. PHYSICAL EXAMINATION: GENERAL: The patient is an 81-year-old female who at this time she is alert, she is not in distress. VITAL SIGNS: Afebrile, blood pressure is 138/70. CARDIOVASCULAR: Heart sounds well heard. She does have atrial fibrillation and a pacemaker. LUNGS: Occasional rales. ABDOMEN: Showed unremarkable findings. LABORATORY WORKUP: Prothrombin time is , INR is 2.12. The hemoglobin is 8.3, hematocrit 26.4, WBC 6500. Chemistry: Potassium 3.9, creatinine is 1.41, BUN is 35. CLINICAL IMPRESSION: The patient presenting with history of severe anemia, rule out peptic ulcer di sease, rule out gastrointestinal malignancy, anemia could certainly be anemia of chronic disease. She has multiple medical problems including atrial fibrillation, pacemaker insertion, hypertension, diabetes. PLAN: At this time, recommend upper endoscopy and lower endoscopy and I will be happy to follow thi s patient with you. Once again, doctor, thank you for this consultation. Dictated By: JAIMEE ABRAHAM/JUSTO Conf#: [id number] [facility]#: [id number] CC: ASHLEY KAMINSKI MD; JAYA MUNROE;*End*
--- NOTE | 2017-02-19 12:37 | CONS ---
Date/Time of Note Date/Time of Note DATE: 02/19/17 TIME: 12:31 Assessment/Plan Assessment/Plan Chief Complaint/Hosp Course 81 yo female with history of HTN, HLD, DM, anemia, afib, PPM, CKD, CHF admitted with syncopal event. Head CT and Duplex unrevealing anemia work up in progress- aspirin and coumadin are being held would recommend checking Orthostatic Vital Signs continue tele monitoring, check PPM to ensure functioning appropriately cardiac work up as planned will follow Problems: Consultation Date/Type/Reason Admit Date/Time Feb 17, 2017 at 17:30 Date of Consultation: Feb 19, 2017 Type of Consultation: Neurology Reason for Consultation evaluation for syncope Referring Provider: JAYA MUNROE MD Hx of Present Illness 81 yo female with hx of afib was on Coumadin, PPM, CHF, HTN, HLD, DM, CKD, cervical stenosis, anemia admitted to [place] was complaints of syncopal episode. Per family she passed out with LOC up to 25 mins, was only mumbling when her name was called. She had a similar prior event in setting of hypoglycemia. Hb: 8.0 on admission being seen by GI for anemia evaluation. She has no prior hx of CVA, no prodrome prior to passing out, no seizure activity observed. Today upon standing to use the bathroom she reportedly felt dizzy. Head CT: 1. No evidence of acute intracranial hemorrhage, infarct, or extra-axial fluid collection. 2. 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 Duplex: IMPRESSION: 1. Less than 50% stenosis bilaterally in the internal carotid arteries. 2. Normal antegrade flow in the vertebral arteries bilaterally. Musculoskeletal: bone/joint pain (right knee) Past Surgical History Past Surgical Hx: other Social History Smoking Status: Never smoker Exam/Review of Systems Vital Signs Vitals Vital Signs Date Time Temp Pulse Resp B/P Pulse Ox O2 Delivery O2 Flow Rate FiO2 02/19/17 12:09 81 02/19/17 11:45 97.5 19 133/67 95 Intake and Output 02/18/17 02/18/17 02/19/17 15:00 23:00 07:00 Intake Total 950 ml 500 ml Output Total 700 ml Balance 250 ml 500 ml Exam appears stated age NAD, obese oriented x3 czech speaking but following all commands well no aphasia no neglect CN: II-XII intact Motor: 5/5 throughout Reflexes 1+ throughout toes down Coord no ataxia Results Result Diagram: 02/19/17 0659 02/19/17 0659 Results 24 hrs Laboratory Tests Test 02/18/17 17:35 02/18/17 20:16 02/19/17 02:23 02/19/17 06:59 Bedside Glucose 139 127 102 White Blood Count 6.5 Red Blood Count 2.93 L Hemoglobin 8.3 L Hematocrit 26.4 L Mean Corpuscular Volume 90.1 Mean Corpuscular Hemoglobin 28.3 L Mean Corpuscular Hemoglobin Concent 31.4 L Red Cell Distribution Width 14.6 H Platelet Count 243 Mean Platelet Volume 11.3 H Neutrophils % 72.1 Lymphocytes % 14.0 L Monocytes % 9.7 Eosinophils % 3.4 Basophils % 0.5 Nucleated Red Blood Cells % 0.0 Neutrophils # 4.7 Lymphocytes # 0.9 Monocytes # 0.6 Eosinophils # 0.2 Basophils # 0.0 Nucleated Red Blood Cells # 0.0 Prothrombin Time 24.0 H Prothrombin Time Ratio 1.9 INR International Normalized Ratio 2.12 Sodium Level 136 Potassium Level 3.9 Chloride Level 102 Carbon Dioxide Level 29 Anion Gap 9 Blood Urea Nitrogen 35 H Creatinine 1.41 H Glucose Level 91 Calcium Level 9.1 Test 02/19/17 08:57 02/19/17 12:06 Bedside Glucose 104 140 Medications Medications Current Medications Atorvastatin Calcium (Lipitor) 40 mg DAILY PO Last administered on 02/19/17 09:05; Admin Dose 40 MG; Start 02/18/17 at 09:00 Carvedilol (Coreg) 25 mg BID PO Last administered on 02/19/17 09:07; Admin Dose 25 MG; Start 02/17/17 at 21:00 Furosemide (Lasix) 40 mg DAILY PO Last administered on 02/19/17 09:06; Admin Dose 40 MG; Start 02/18/17 at 09:00 Hydralazine HCl (Apresoline) 50 mg Q8 PO Last administered on 02/19/17 06:41 ; Admin Dose 50 MG; Start 02/17/17 at 22:00 Isosorbide Mononitrate (Imdur) 60 mg DAILY PO Last administered on 02/19/17 09:05; Admin Dose 60 MG; Start 02/18/17 at 09:00 Lisinopril (Zestril) 5 mg DAILY PO Last administered on 02/19/17 09:06; Admin Dose 5 MG; Start 02/18/17 at 09:00 Nitroglycerin (Nitroglycerin (Sl Tab) 0.4 Mg) 0.4 tab [id number] PRN SL CHEST PAIN; Start 02/17/17 at 19:00 Warfarin Sodium (Coumadin) 5 mg DAILY@17 PO Last administered on 02/18/17 17: 33; Admin Dose 5 MG; Start 02/17/17 at 21:00 Diagnostic Test (Pha) (Accu-Chek) 1 ea 02 XX Last administered on 02/19/17 02 :00; Admin Dose 1 EA; Start 02/18/17 at 02:00 Diagnostic Test (Pha) (Accu-Chek) 1 ea 02 XX Last administered on 02/19/17 02 :00; Admin Dose 1 EA; Start 02/18/17 at 02:00 Miscellaneous Information 1 ea NOTE XX ; Start 02/17/17 at 20:00 Glucose (Glutose) 15 gm Q15M PRN PO DECREASED GLUCOSE; Start 02/17/17 at 20:00 Glucose (Glutose) 22.5 gm Q15M PRN PO DECREASED GLUCOSE; Start 02/17/17 at 20: 00 Dextrose (D50w Syringe) 25 ml Q15M PRN IV DECREASED GLUCOSE; Start 02/17/17 at 20:00 Dextrose (D50w Syringe) 50 ml Q15M PRN IV DECREASED GLUCOSE; Start 02/17/17 at 20:00 Glucagon (Glucagen) 1 mg Q15M PRN IM DECREASED GLUCOSE; Start 02/17/17 at 20: 00 Glucose 15 gm 15 gm Q15M PRN BUCCAL DECREASED GLUCOSE; Start 02/17/17 at 20:00 Sodium Chloride (NS) 1,000 ml @ 30 mls/hr Q24H IV Last administered on 21:05; Admin Dose 30 MLS/HR; Start 02/17/17 at 20:30 Ondansetron HCl (Zofran Inj) 4 mg Q6H PRN IV NAUSEA AND/OR VOMITING; Start at 23:30 Acetaminophen (Tylenol Tab) 650 mg Q6H PRN PO PAIN LEVEL 1-3 OR FEVER Last administered on 02/18/17 08:40; Admin Dose 650 MG; Start 02/17/17 at 23:30 Docusate Sodium (Colace) 100 mg Q12H PRN PO CONSTIPATION Last administered on 02/18/17 08:42; Admin Dose 100 MG; Start 02/17/17 at 23:30 Magnesium Hydroxide (Milk Of Mag) 30 ml DAILY PRN PO CONSTIPATION; Start 02/17 at 23:30 Bisacodyl (Dulcolax) 5 mg DAILY PRN PO CONSTIPATION; Start 02/17/17 at 23:30 LAURENT SULLIVAN MD Feb 19, 2017 12:36
[2017-02-19] MEDS: WARFARIN 5 MG TAB PO SCH (18:06)
[2017-02-19] MEDS: SOD CHLORIDE 0.9% 1,000 ML IV SCH (21:07)
[2017-02-20] VITALS (12 sets, daily range): BP systolic 103–152; BP diastolic 52–78; PULSE 69–85; RESP 18–20
[2017-02-20] MEDS: ACETAMINOPHEN 325 MG TAB PO PRN (00:12)
[2017-02-20] MEDS: ACCU-CHEK XX SCH ×2 (02:00)
[2017-02-20] MEDS: INSULIN ASPART [NOVOLOG] 3 ML PEN SC SCH ×4 (08:00→21:00)
[2017-02-20] MEDS: LISINOPRIL 5 MG TAB PO SCH (09:00)
[2017-02-20] MEDS: ISOSORBIDE MONONITRATE(SR)60 MG TAB PO SCH (09:00)
[2017-02-20] MEDS: ATORVASTATIN 40 MG TAB PO SCH (09:46)
[2017-02-20] MEDS: FUROSEMIDE 40 MG TAB PO SCH (09:47)
--- NOTE | 2017-02-20 12:16 | PN ---
Date/Time of Note Date/Time of Note DATE: 02/20/17 TIME: 12:15 Assessment/Plan VTE Prophylaxis VTE Prophylaxis Intervention: ambulation Lines/Catheters IV [facility] [place] [facility] Urinary Cath still in place: No Assessment/Plan Chief Complaint/Hosp Course 1. Presyncope could be vasovagal/ neuro/anemia vs spinal stenosis 2. hx CHF, systolic 3. Chest pain with recent stress test negative, VQ scan negative 4. Atrial fibrillation, controlled 5. Renal insufficiency, CKD mild 6. Anemia FOBT negative, b12 , folic acid normal 7. Morbid obesity 8 Dm type II controlled 9. Hx pacemaker 10. CAD 11. Dyslipidemia 12. right ankle pain Problems: Assessment/Plan 1. D/c IV fluids 2. Continue diuresis 3. Xray right ankle Subjective 24 Hr Interval Summary Eyes: no complaints ENT: no complaints Musculoskeletal: bone/joint pain (right ankle) Exam/Review of Systems Vital Signs Vitals Vital Signs Date Time Temp Pulse Resp B/P Pulse Ox O2 Delivery O2 Flow Rate FiO2 02/20/17 12:14 78 02/20/17 11:42 96.7 20 103/52 93 Intake and Output 02/19/17 02/19/17 02/20/17 15:00 23:00 07:00 Intake Total 750 ml 500 ml Balance 750 ml 500 ml Exam Constitutional: alert, oriented Respiratory: clear to auscultation Cardiovascular: regular rate and rhythm Gastrointestinal: soft Musculoskeletal: joint tenderness (right ankle) Results Result Diagram: 02/20/17 0540 02/20/17 0540 Results 24 hrs Laboratory Tests Test 02/19/17 18:04 02/19/17 21:04 02/20/17 05:40 02/20/17 09:02 Bedside Glucose 179 124 116 White Blood Count 7.3 Red Blood Count 3.11 L Hemoglobin 8.7 L Hematocrit 28.1 L Mean Corpuscular Volume 90.4 Mean Corpuscular Hemoglobin 28.0 L Mean Corpuscular Hemoglobin Concent 31.0 L Red Cell Distribution Width 14.7 H Platelet Count 260 Mean Platelet Volume 11.2 H Neutrophils % 66.7 Lymphocytes % 19.0 Monocytes % 9.6 Eosinophils % 3.6 Basophils % 0.7 Nucleated Red Blood Cells % 0.0 Neutrophils # 4.9 Lymphocytes # 1.4 Monocytes # 0.7 Eosinophils # 0.3 Basophils # 0.1 Nucleated Red Blood Cells # 0.0 Prothrombin Time 24.0 H Prothrombin Time Ratio 1.9 INR International Normalized Ratio 2.12 Sodium Level 137 Potassium Level 4.4 Chloride Level 99 Carbon Dioxide Level 29 Anion Gap 13 Blood Urea Nitrogen 30 H Creatinine 1.37 H Glucose Level 104 Calcium Level 9.0 B-Type Natriuretic Peptide 8660 H Test 02/20/17 11:39 02/20/17 11:41 Bedside Glucose 178 177 Medications Medications Current Medications Atorvastatin Calcium (Lipitor) 40 mg DAILY PO Last administered on 02/20/17 09:46; Admin Dose 40 MG; Start 02/18/17 at 09:00 Carvedilol (Coreg) 25 mg BID PO Last administered on 02/19/17 21:06; Admin Dose 25 MG; Start 02/17/17 at 21:00 Furosemide (Lasix) 40 mg DAILY PO Last administered on 02/20/17 09:47; Admin Dose 40 MG; Start 02/18/17 at 09:00 Hydralazine HCl (Apresoline) 50 mg Q8 PO Last administered on 02/20/17 06:24 ; Admin Dose 50 MG; Start 02/17/17 at 22:00 Isosorbide Mononitrate (Imdur) 60 mg DAILY PO Last administered on 02/19/17 09:05; Admin Dose 60 MG; Start 02/18/17 at 09:00 Lisinopril (Zestril) 5 mg DAILY PO Last administered on 02/19/17 09:06; Admin Dose 5 MG; Start 02/18/17 at 09:00 Nitroglycerin (Nitroglycerin (Sl Tab) 0.4 Mg) 0.4 tab [id number] PRN SL CHEST PAIN; Start 02/17/17 at 19:00 Warfarin Sodium (Coumadin) 5 mg DAILY@17 PO Last administered on 02/19/17 18: 06; Admin Dose 5 MG; Start 02/17/17 at 21:00 Diagnostic Test (Pha) (Accu-Chek) 1 ea 02 XX Last administered on 02/19/17 02 :00; Admin Dose 1 EA; Start 02/18/17 at 02:00 Diagnostic Test (Pha) (Accu-Chek) 1 ea 02 XX Last administered on 02/19/17 02 :00; Admin Dose 1 EA; Start 02/18/17 at 02:00 Miscellaneous Information 1 ea NOTE XX ; Start 02/17/17 at 20:00 Glucose (Glutose) 15 gm Q15M PRN PO DECREASED GLUCOSE; Start 02/17/17 at 20:00 Glucose (Glutose) 22.5 gm Q15M PRN PO DECREASED GLUCOSE; Start 02/17/17 at 20: 00 Dextrose (D50w Syringe) 25 ml Q15M PRN IV DECREASED GLUCOSE; Start 02/17/17 at 20:00 Dextrose (D50w Syringe) 50 ml Q15M PRN IV DECREASED GLUCOSE; Start 02/17/17 at 20:00 Glucagon (Glucagen) 1 mg Q15M PRN IM DECREASED GLUCOSE; Start 02/17/17 at 20: 00 Glucose 15 gm 15 gm Q15M PRN BUCCAL DECREASED GLUCOSE; Start 02/17/17 at 20:00 Sodium Chloride (NS) 1,000 ml @ 30 mls/hr Q24H IV Last administered on 21:07; Admin Dose 30 MLS/HR; Start 02/17/17 at 20:30 Ondansetron HCl (Zofran Inj) 4 mg Q6H PRN IV NAUSEA AND/OR VOMITING; Start at 23:30 Acetaminophen (Tylenol Tab) 650 mg Q6H PRN PO PAIN LEVEL 1-3 OR FEVER Last administered on 02/20/17 00:12; Admin Dose 650 MG; Start 02/17/17 at 23:30 Docusate Sodium (Colace) 100 mg Q12H PRN PO CONSTIPATION Last administered on 02/18/17 08:42; Admin Dose 100 MG; Start 02/17/17 at 23:30 Magnesium Hydroxide (Milk Of Mag) 30 ml DAILY PRN PO CONSTIPATION; Start 02/17 at 23:30 Bisacodyl (Dulcolax) 5 mg DAILY PRN PO CONSTIPATION; Start 02/17/17 at 23:30 WADE AGUIAR Feb 20, 2017 12:16
[2017-02-20] MEDS ORDERED: LACTULOSE 30ML CUP PO PRN (12:30)
--- NOTE | 2017-02-20 15:13 | RADRPT ---
PROCEDURE: XR Chest. CLINICAL INDICATION: Shortness of breath. TECHNIQUE: Single frontal view. COMPARISON: 02/14/2017. FINDINGS: There is mild pulmonary edema. The lungs are otherwise clear. There is a left-sided single lead perm anent pacemaker. The heart is enlarged. There is calcification in the aorta consistent with atherosclerosis. There is no pleural effusion. There is no pneumothorax. IMPRESSION: 1. Mild pulmonary edema. 2. Permanent pacemaker. 3. Cardiomegaly and atherosclerosis. RPTAT: QQ .Josemanuel Raya MD, MD Date Time Electronically viewed and signed by .Josemanuel Raya MD, MD on 02/20/2017 15:12 .R/
--- NOTE | 2017-02-20 15:13 | RADRPT ---
PROCEDURE: XR Right Ankle. CLINICAL INDICATION: Right ankle pain. TECHNIQUE: 2 views. Frontal and lateral. COMPARISON: None. FINDINGS: There is no fracture or dislocation. The soft tissues are normal. The articular surfaces are intact. There are calcaneal spurs. There is no lytic or blastic lesion. There is no radiopaque foreign body. IMPRESSION: 1. Calcaneal spurs. 2. Otherwise normal images of the right ankle. RPTAT: QQ .Josemanuel Raya MD, Date Time Electronically viewed and signed by .Josemanuel Raya MD, on 02/20/2017 15:13 .R/
--- NOTE | 2017-02-20 15:29 | CONS ---
Date/Time of Note Date/Time of Note DATE: 02/20/17 TIME: 15:25 Assessment/Plan Assessment/Plan Additional Assessment/Plan 81 yo female with history of HTN, HLD, DM, anemia, afib, PPM, CKD, CHF admitted with syncopal event. Head CT and Duplex unrevealing anemia work up in progress- aspirin and coumadin are being held would recommend checking Orthostatic Vital Signs continue tele monitoring, check PPM to ensure functioning appropriately cardiac work up as planned will follow Consultation Date/Type/Reason Admit Date/Time Feb 17, 2017 at 17:30 Initial Consult Date 02/19/17 Type of Consultation: Neurology Referring Provider: JAYA MUNROE MD 24 HR Interval Summary Free Text/Dictation Doing well. No new complaints. Exam/Review of Systems Vital Signs Vitals Vital Signs Date Time Temp Pulse Resp B/P Pulse Ox O2 Delivery O2 Flow Rate FiO2 02/20/17 12:14 78 02/20/17 11:42 96.7 20 103/52 93 Intake and Output 02/19/17 02/19/17 02/20/17 14:59 22:59 06:59 Intake Total 750 ml 500 ml Balance 750 ml 500 ml Exam Constitutional: alert, oriented, well developed Psych: nl mood/affect, no complaints Head: atraumatic, normocephalic Eyes: EOMI, nl conjunctiva, nl lids, nl sclera ENMT: mucosa pink and moist, nl external ears & nose, nl lips & teeth, nl nasal mucosa & septum Neck: non-tender, supple Respiratory: clear to auscultation, normal air movement Cardiovascular: nl pulses, regular rate and rhythm Gastrointestinal: nl liver, spleen, non-tender, soft Extremities: normal pulses Neurological: PERSONNEL RECRUITER II-XII intact, nl mental status, nl speech, nl strength Results Result Diagram: 02/20/17 0540 02/20/17 0540 Results 24 hrs Laboratory Tests Test 02/19/17 18:04 02/19/17 21:04 02/20/17 05:40 02/20/17 09:02 Bedside Glucose 179 124 116 White Blood Count 7.3 Red Blood Count 3.11 L Hemoglobin 8.7 L Hematocrit 28.1 L Mean Corpuscular Volume 90.4 Mean Corpuscular Hemoglobin 28.0 L Mean Corpuscular Hemoglobin Concent 31.0 L Red Cell Distribution Width 14.7 H Platelet Count 260 Mean Platelet Volume 11.2 H Neutrophils % 66.7 Lymphocytes % 19.0 Monocytes % 9.6 Eosinophils % 3.6 Basophils % 0.7 Nucleated Red Blood Cells % 0.0 Neutrophils # 4.9 Lymphocytes # 1.4 Monocytes # 0.7 Eosinophils # 0.3 Basophils # 0.1 Nucleated Red Blood Cells # 0.0 Prothrombin Time 24.0 H Prothrombin Time Ratio 1.9 INR International Normalized Ratio 2.12 Sodium Level 137 Potassium Level 4.4 Chloride Level 99 Carbon Dioxide Level 29 Anion Gap 13 Blood Urea Nitrogen 30 H Creatinine 1.37 H Glucose Level 104 Calcium Level 9.0 B-Type Natriuretic Peptide 8660 H Test 02/20/17 11:39 02/20/17 11:41 Bedside Glucose 178 177 Medications Medications Current Medications Atorvastatin Calcium (Lipitor) 40 mg DAILY PO Last administered on 02/20/17 09:46; Admin Dose 40 MG; Start 02/18/17 at 09:00 Carvedilol (Coreg) 25 mg BID PO Last administered on 02/19/17 21:06; Admin Dose 25 MG; Start 02/17/17 at 21:00 Furosemide (Lasix) 40 mg DAILY PO Last administered on 02/20/17 09:47; Admin Dose 40 MG; Start 02/18/17 at 09:00 Isosorbide Mononitrate (Imdur) 60 mg DAILY PO Last administered on 02/19/17 09:05; Admin Dose 60 MG; Start 02/18/17 at 09:00 Nitroglycerin (Nitroglycerin (Sl Tab) 0.4 Mg) 0.4 tab [id number] PRN SL CHEST PAIN; Start 02/17/17 at 19:00 Warfarin Sodium (Coumadin) 5 mg DAILY@17 PO Last administered on 02/19/17 18: 06; Admin Dose 5 MG; Start 02/17/17 at 21:00 Diagnostic Test (Pha) (Accu-Chek) 1 ea 02 XX Last administered on 02/19/17 02 :00; Admin Dose 1 EA; Start 02/18/17 at 02:00 Diagnostic Test (Pha) (Accu-Chek) 1 ea 02 XX Last administered on 02/19/17 02 :00; Admin Dose 1 EA; Start 02/18/17 at 02:00 Miscellaneous Information 1 ea NOTE XX ; Start 02/17/17 at 20:00 Glucose (Glutose) 15 gm Q15M PRN PO DECREASED GLUCOSE; Start 02/17/17 at 20:00 Glucose (Glutose) 22.5 gm Q15M PRN PO DECREASED GLUCOSE; Start 02/17/17 at 20: 00 Dextrose (D50w Syringe) 25 ml Q15M PRN IV DECREASED GLUCOSE; Start 02/17/17 at 20:00 Dextrose (D50w Syringe) 50 ml Q15M PRN IV DECREASED GLUCOSE; Start 02/17/17 at 20:00 Glucagon (Glucagen) 1 mg Q15M PRN IM DECREASED GLUCOSE; Start 02/17/17 at 20: 00 Glucose (Glutose) 15 gm Q15M PRN BUCCAL DECREASED GLUCOSE; Start 02/17/17 at 20:00 Ondansetron HCl (Zofran Inj) 4 mg Q6H PRN IV NAUSEA AND/OR VOMITING; Start at 23:30 Acetaminophen (Tylenol Tab) 650 mg Q6H PRN PO PAIN LEVEL 1-3 OR FEVER Last administered on 02/20/17 00:12; Admin Dose 650 MG; Start 02/17/17 at 23:30 Docusate Sodium (Colace) 100 mg Q12H PRN PO CONSTIPATION Last administered on 02/18/17 08:42; Admin Dose 100 MG; Start 02/17/17 at 23:30 Magnesium Hydroxide (Milk Of Mag) 30 ml DAILY PRN PO CONSTIPATION; Start 02/17 at 23:30 Bisacodyl (Dulcolax) 5 mg DAILY PRN PO CONSTIPATION; Start 02/17/17 at 23:30 Lactulose (Enulose) 20 gm DAILY PRN PO CONSTIPATION; Start 02/20/17 at 12:30 Lisinopril (Zestril) 40 mg DAILY PO ; Start 02/20/17 at 13:30 Amlodipine Besylate (Norvasc) 10 mg DAILY PO ; Start 02/20/17 at 13:30 JOSEPH VALLES MD Feb 20, 2017 15:29
[2017-02-20] MEDS: LISINOPRIL 20 MG TAB PO SCH (15:46)
[2017-02-20] MEDS: AMLODIPINE 10 MG TAB PO SCH (15:47)
[2017-02-20] MEDS ORDERED: PEG/ELECTROLYTES 4L BTL PO STA (16:50)
[2017-02-20] MEDS: WARFARIN 5 MG TAB PO SCH (17:54)
[2017-02-20] MEDS: LACTULOSE 30ML CUP PO SCH ×3 (21:01→23:10)
[2017-02-21] VITALS (13 sets, daily range): BP systolic 105–138; BP diastolic 47–77; PULSE 63–102; RESP 16–29
--- NOTE | 2017-02-21 00:11 | CONS ---
DATE OF ADMISSION: 02/17/2017 DATE OF CONSULTATION: 02/20/2017 REFERRING PHYSICIAN: Mateusz Ortiz MD HISTORY OF PRESENT ILLNESS: The patient is an 81-year-old female who was transferred from [facility] with episode of syncope. She denies any chest pain, but complains of right-sided upper back pain with mild shortness of breath. Also complains of dizziness. No palpitation. Denies nausea or vomiting. Denies fever, chills, or rigors. PAST MEDICAL HISTORY: Significant for: 1. Atrial fibrillation status post permanent pacemaker implantation. 2. Congestive heart failure. 3. Asthma. 4. Diabetes mellitus. 5. Hypertension. 6. Osteoarthritis. 7. Chronic renal failure. SOCIAL HISTORY: No smoking, alcohol, or recreational drugs. PAST SURGICAL HISTORY: Status post cholecystectomy. ALLERGIES: NONE. CURRENT MEDICATIONS: Include: 1. Coreg. 2. Lipitor. 3. Lasix. 4. Imdur. 5. Lisinopril. 6. Coumadin. 7. Insulin. REVIEW OF SYSTEMS: Unremarkable except as mentioned in the HPI. PHYSICAL EXAMINATION: VITAL SIGNS: Temperature is 96.7, heart rate of 77, blood pressure 103/52 mmHg , breathing at 20, saturating 92%. GENERAL: Patient awake, alert, in no apparent distress. NECK: No JVD or carotid bruit. CARDIOVASCULAR: Irregularly irregular rhythm. No murmur, rub or gallop. CHEST: Diminished breath sounds bilaterally. ABDOMEN: Soft. Bowel sounds are present. There is no organomegaly. EXTREMITIES: No pedal edema. DIAGNOSTIC DATA: Tele monitor shows atrial fibrillation with intermittent V- paced rhythm. Carotid Doppler showed less than 50% stenosis bilaterally in the internal carotid arteries. LABORATORY DATA: WBC 7.3, hemoglobin 8.7, hematocrit 28.1 with a platelet of 260. Sodium 137, potassium 4.4, chloride 99, CO2 29, BUN 30, creatinine 1.37. BNP 8660. ASSESSMENT AND PLAN: An 81-year-old female with: 1. Syncope. 2. Carotid artery stenosis (less than 50% stenosis of internal carotid arteries bilaterally). 3. Atrial fibrillation status post permanent pacemaker implantation. 4. Hypertension. 5. Dyslipidemia. 6. Diabetes mellitus. 7. Asthma 8. Osteoarthritis RECOMMENDATIONS: 1. Chest x-ray stat. 2. EKG stat. 3. Trend troponin q. 8 hours x3. 4. Echocardiogram to assess for systolic function and for pulmonary hypertension. 5. Continue Coreg. 6. Continue Lasix. 7. Continue Lipitor. 8. Continue Imdur. 9. Continue lisinopril. 10. Continue Coumadin 11. Continue insulin. 12. Discontinue hydralazine and start on Norvasc. Dictated By: AMADA STYLES MD SR/JUSTO Conf#: [id number] DID#: [id number]
[2017-02-21] MEDS: ACCU-CHEK XX SCH ×2 (02:00)
--- NOTE | 2017-02-21 02:56 | CONS ---
DATE OF ADMISSION: 02/17/2017 DATE OF CONSULTATION: At this time, complaint-boogie, she has no complaints. OBJECTIVE: GEERAL: She appears alert. She is not short of breath. She is on room air . O2 sat is 95%. She i s not tachypneic. VITAL SIGNS: Afebrile, blood pressure is 152/73. CARDIOVASCULAR: Normal heart sounds. RESPIRATORY: Normal breath sounds. ABDOMEN: Shows soft abdomen with no palpable masses, no tenderness, no distention. LABORATORY WORKUP: Potassium 4.4, BUN 30, creatinine 1.37. WBC count is 7.3 thousand, hemoglobin i s 8.7. CLINICAL IMPRESSION: The patient has severe anemia. Rule out gastrointestinal bleeding either due to peptic ulcer disease, arteriovenous malformation, or gastrointestinal malignancy. PLAN: At this time, will proceed with EGD and a colonoscopy and I discussed this with and the patient agreed. Dictated By: JAIMEE ABRAHAM/JUSTO Conf#: [id number] DID#: [id number]
[2017-02-21] MEDS ORDERED: POTASSIUM CHLORIDE 30 MEQ in DEXTROSE 5% 250 ML IVPB PRN (06:00)
[2017-02-21] MEDS: INSULIN ASPART [NOVOLOG] 3 ML PEN SC SCH ×4 (08:00→20:52)
[2017-02-21] MEDS: FUROSEMIDE 40 MG TAB PO SCH (09:00)
[2017-02-21] MEDS: ATORVASTATIN 40 MG TAB PO SCH (09:00)
[2017-02-21] MEDS: ISOSORBIDE MONONITRATE(SR)60 MG TAB PO SCH (09:49)
[2017-02-21] MEDS: AMLODIPINE 10 MG TAB PO SCH (09:49)
[2017-02-21] MEDS: LISINOPRIL 20 MG TAB PO SCH (09:50)
--- NOTE | 2017-02-21 10:54 | PN ---
Date/Time of Note Date/Time of Note DATE: 02/21/17 TIME: 10:49 Assessment/Plan VTE Prophylaxis VTE Prophylaxis Intervention: contraindicated, other Lines/Catheters IV Catheter Type (from Nrsg): Peripheral IV Urinary Cath still in place: No Reason Cath still needed: urinary retention Assessment/Plan Chief Complaint/Hosp Course 81 y/o with # Presyncopy could be vasovagal/ neuro/anemia vs spinal stenosis # hx CHF, systolic # Chest pain with recent stress test negative, VQ scan negative # .Atrial fibrillation, controlled #. Renal insufficiency, CKD mild #. Anemia FOBT negative, 1b12 , folic acid normal # Morbid obesity # Dm type II controlled # Hx pacemaker #CAD #. Dyslipidemia Recs: - EGD and Colonoscopy today - Decrease Lisnopril and hold norvasc due to hypotension - c/w Coreg for now, might lower dose if does not tolerate it - c/w Lasix - c/w Telemetry Problems: Subjective 24 Hr Interval Summary Free Text/Dictation Getting EGD and Colonoscopy today SBP 110's Exam/Review of Systems Vital Signs Vitals Vital Signs Date Time Temp Pulse Resp B/P Pulse Ox O2 Delivery O2 Flow Rate FiO2 02/21/17 08:10 73 02/21/17 08:02 98.1 19 138/63 96 Intake and Output 02/20/17 02/20/17 02/21/17 15:00 23:00 07:00 Intake Total 800 ml 1140 ml Balance 800 ml 1140 ml Exam GeN: Obese Neck:supple CVS:Irregular irregular Lungs:clear Abdomen:soft, non tender Ext : no edema Neuo : non focal Results Result Diagram: 02/21/17 0533 02/21/17 0533 Results 24 hrs Laboratory Tests Test 02/20/17 11:39 02/20/17 11:41 02/20/17 17:52 02/20/17 18:20 Bedside Glucose 178 177 176 Troponin I < 0.012 Test 02/20/17 21:06 02/21/17 01:03 02/21/17 05:33 02/21/17 05:38 Bedside Glucose 128 Troponin I < 0.012 < 0.012 White Blood Count 8.3 Red Blood Count 3.05 L Hemoglobin 8.5 L Hematocrit 27.7 L Mean Corpuscular Volume 90.8 Mean Corpuscular Hemoglobin 27.9 L Mean Corpuscular Hemoglobin Concent 30.7 L Red Cell Distribution Width 14.8 H Platelet Count 244 Mean Platelet Volume 11.4 H Neutrophils % 76.4 Lymphocytes % 11.2 L Monocytes % 10.5 Eosinophils % 1.0 Basophils % 0.4 Nucleated Red Blood Cells % 0.0 Neutrophils # 6.3 Lymphocytes # 0.9 Monocytes # 0.9 Eosinophils # 0.1 Basophils # 0.0 Nucleated Red Blood Cells # 0.0 Sodium Level 140 Potassium Level 3.6 Chloride Level 103 Carbon Dioxide Level 26 Anion Gap 15 Blood Urea Nitrogen 32 H Creatinine 1.27 H Glucose Level 118 Calcium Level 9.1 Prothrombin Time 26.2 H Prothrombin Time Ratio 2.0 INR International Normalized Ratio 2.37 Test 02/21/17 08:35 Bedside Glucose 113 Medications Medications Current Medications Atorvastatin Calcium (Lipitor) 40 mg DAILY PO Last administered on 02/20/17 09:46; Admin Dose 40 MG; Start 02/18/17 at 09:00 Carvedilol (Coreg) 25 mg BID PO Last administered on 02/21/17 09:49; Admin Dose 25 MG; Start 02/17/17 at 21:00 Furosemide (Lasix) 40 mg DAILY PO Last administered on 02/20/17 09:47; Admin Dose 40 MG; Start 02/18/17 at 09:00 Isosorbide Mononitrate (Imdur) 60 mg DAILY PO Last administered on 02/21/17 09:49; Admin Dose 60 MG; Start 02/18/17 at 09:00 Nitroglycerin (Nitroglycerin (Sl Tab) 0.4 Mg) 0.4 tab [id number] PRN SL CHEST PAIN; Start 02/17/17 at 19:00 Warfarin Sodium (Coumadin) 5 mg DAILY@17 PO Last administered on 02/20/17 17: 54; Admin Dose 5 MG; Start 02/17/17 at 21:00 Diagnostic Test (Pha) (Accu-Chek) 1 ea 02 XX Last administered on 02/19/17 02 :00; Admin Dose 1 EA; Start 02/18/17 at 02:00 Diagnostic Test (Pha) (Accu-Chek) 1 ea 02 XX Last administered on 02/19/17 02 :00; Admin Dose 1 EA; Start 02/18/17 at 02:00 Miscellaneous Information 1 ea NOTE XX ; Start 02/17/17 at 20:00 Glucose (Glutose) 15 gm Q15M PRN PO DECREASED GLUCOSE; Start 02/17/17 at 20:00 Glucose (Glutose) 22.5 gm Q15M PRN PO DECREASED GLUCOSE; Start 02/17/17 at 20: 00 Dextrose (D50w Syringe) 25 ml Q15M PRN IV DECREASED GLUCOSE; Start 02/17/17 at 20:00 Dextrose (D50w Syringe) 50 ml Q15M PRN IV DECREASED GLUCOSE; Start 02/17/17 at 20:00 Glucagon (Glucagen) 1 mg Q15M PRN IM DECREASED GLUCOSE; Start 02/17/17 at 20: 00 Glucose (Glutose) 15 gm Q15M PRN BUCCAL DECREASED GLUCOSE; Start 02/17/17 at 20:00 Ondansetron HCl (Zofran Inj) 4 mg Q6H PRN IV NAUSEA AND/OR VOMITING; Start at 23:30 Acetaminophen (Tylenol Tab) 650 mg Q6H PRN PO PAIN LEVEL 1-3 OR FEVER Last administered on 02/20/17 00:12; Admin Dose 650 MG; Start 02/17/17 at 23:30 Docusate Sodium (Colace) 100 mg Q12H PRN PO CONSTIPATION Last administered on 02/18/17 08:42; Admin Dose 100 MG; Start 02/17/17 at 23:30 Magnesium Hydroxide (Milk Of Mag) 30 ml DAILY PRN PO CONSTIPATION; Start 02/17 at 23:30 Bisacodyl (Dulcolax) 5 mg DAILY PRN PO CONSTIPATION; Start 02/17/17 at 23:30 Lactulose 20 gm 20 gm DAILY PRN PO CONSTIPATION; Start 02/20/17 at 12:30 Potassium Chloride/Dextrose (KCl/D5W) 265 ml @ 88.333 mls/ hr ONCE PRN IVPB OTHER; Start 02/21/17 at 06:00; Stop 02/21/17 at 14:00 Lisinopril (Zestril) 5 mg DAILY PO ; Start 02/22/17 at 09:00; Status JAYA ACEVEDO MD Feb 21, 2017 10:54
[2017-02-21] MEDS ORDERED: LIDOCAINE 2% (SDV) 5 ML INJ ONE (11:49)
[2017-02-21] MEDS ORDERED: PROPOFOL 20 ML ONE (11:49)
--- NOTE | 2017-02-21 12:07 | RADRPT ---
Vent Rate: 71 bpm RR Interval: 0 msec NE Interval: 0 msec QRS Duration: 90 msec QT Interval: 382 msec QTC Interval: 415 msec P-R-T [place]: 0 - 74 - 29 degrees Demand pacemaker, interpretation is based on intrinsic rhythm Atrial fibrillation with premature ventricular or aberrantly conducted complexes Abnormal ECG Electronically Signed By: Ryan Navarro [id number]
--- NOTE | 2017-02-21 12:07 | RADRPT ---
Vent Rate: 71 bpm RR Interval: [address] Interval: 0 msec QRS Duration: 90 msec QT Interval: 382 msec QTC Interval: 415 msec P-R-T [place]: 0 - 74 - 29 degrees Demand pacemaker, interpretation is based on intrinsic rhythm Atrial fibrillation with premature ventricular or aberrantly conducted complexes Abnormal ECG Electronically Signed By: Ryan Navarro [id number]
--- NOTE | 2017-02-21 12:07 | RADRPT ---
Vent Rate: 71 bpm RR Interval: 0 msec SC Interval: 0 msec QRS Duration: 90 msec QT Interval: 382 msec QTC Interval: 415 msec P-R-T [place]: 0 - 74 - 29 degrees Demand pacemaker, interpretation is based on intrinsic rhythm Atrial fibrillation with premature ventricular or aberrantly conducted complexes Abnormal ECG Electronically Signed By: Ryan Navarro [id number]
--- NOTE | 2017-02-21 12:29 | OPPN ---
Date/Time of Note Date/Time of Note DATE: 02/21/17 TIME: 12:26 Proc Note GI Procedure Date 02/21/17 Indication: diagnostic Pre-procedure Diagnosis anemia occult gi bleeding r/o pud vs coolorectal neoplasm Post-procedure Diagnosis antral gastritis mini gerd two colon polyps hemorrhoids Procedure Performed: Endoscopy, Colonoscopy Surgeon see signature line Supervisor Production none Anesthesia Type: MAC Tourniquet Time none EBL none Transfusion required none Biopsy 1: brushing done from colon polyp Grafts/Implants none Tubes/Drains none Complication(s) none Disposition: other Procedure Description under MAC egd colonoscopy performed egd showed antra l gastritis mini 'mini gerd two colon polyps hemorrhoids JAIMEE JUNIOR MD Feb 21, 2017 12:29
--- NOTE | 2017-02-21 12:29 | OPPN ---
Date/Time of Note Date/Time of Note DATE: 02/21/17 TIME: 12:26 Proc Note GI Procedure Date 02/21/17 Indication: diagnostic Pre-procedure Diagnosis anemia occult gi bleeding r/o pud vs coolorectal neoplasm Post-procedure Diagnosis antral gastritis mini gerd two colon polyps hemorrhoids Procedure Performed: Endoscopy, Colonoscopy Surgeon see signature line [employer] Supervisor none Anesthesia Type: MAC Tourniquet Time none EBL none Transfusion required none Biopsy 1: brushing done from colon polyp Grafts/Implants none Tubes/Drains none Complication(s) none Disposition: other Procedure Description under MAC egd colonoscopy performed egd showed antra l gastritis mini 'mini gerd two colon polyps hemorrhoids JAIMEE JUNIOR MD Feb 21, 2017 12:29
--- NOTE | 2017-02-21 13:11 | CONS ---
Date/Time of Note Date/Time of Note DATE: 02/21/17 TIME: 13:05 Assessment/Plan Assessment/Plan Additional Assessment/Plan Acute exacerbation of congestive heart failure Atrial fibrillation status post permanent pacemaker implantation. Asthma. Diabetes mellitus. Hypertension. Osteoarthritis. Chronic renal failure. ruled out for ACS with elevated BNP and CXR showing congestion Started on lasix Avoid Volume Overload Continue Coreg. Continue Lasix. Continue Lipitor. Continue Imdur. Continue lisinopril. Continue Coumadin Continue insulin. Continue Norvasc. Consultation Date/Type/Reason Admit Date/Time Feb 17, 2017 at 17:30 Initial Consult Date 02/19/17 Type of Consultation: Neurology Referring Provider: JAYA MUNROE MD Exam/Review of Systems Vital Signs Vitals Vital Signs Date Time Temp Pulse Resp B/P Pulse Ox O2 Delivery O2 Flow Rate FiO2 02/21/17 11:08 98.2 95 29 132/77 95 Room Air Intake and Output 02/20/17 02/20/17 02/21/17 15:00 23:00 07:00 Intake Total 800 ml 1140 ml Balance 800 ml 1140 ml Exam Constitutional: alert, oriented Head: atraumatic, normocephalic Neck: non-tender, supple Respiratory: diminished breath sounds Cardiovascular: irregular rhythm Gastrointestinal: nl liver, spleen, non-tender, soft Extremities: normal pulses Results Result Diagram: 02/21/17 0533 02/21/17 0533 Results 24 hrs Laboratory Tests Test 02/20/17 17:52 02/20/17 18:20 02/20/17 21:06 02/21/17 01:03 Bedside Glucose 176 128 Troponin I < 0.012 < 0.012 Test 02/21/17 05:33 02/21/17 05:38 02/21/17 08:35 White Blood Count 8.3 Red Blood Count 3.05 L Hemoglobin 8.5 L Hematocrit 27.7 L Mean Corpuscular Volume 90.8 Mean Corpuscular Hemoglobin 27.9 L Mean Corpuscular Hemoglobin Concent 30.7 L Red Cell Distribution Width 14.8 H Platelet Count 244 Mean Platelet Volume 11.4 H Neutrophils % 76.4 Lymphocytes % 11.2 L Monocytes % 10.5 Eosinophils % 1.0 Basophils % 0.4 Nucleated Red Blood Cells % 0.0 Neutrophils # 6.3 Lymphocytes # 0.9 Monocytes # 0.9 Eosinophils # 0.1 Basophils # 0.0 Nucleated Red Blood Cells # 0.0 Sodium Level 140 Potassium Level 3.6 Chloride Level 103 Carbon Dioxide Level 26 Anion Gap 15 Blood Urea Nitrogen 32 H Creatinine 1.27 H Glucose Level 118 Calcium Level 9.1 Troponin I < 0.012 Prothrombin Time 26.2 H Prothrombin Time Ratio 2.0 INR International Normalized Ratio 2.37 Bedside Glucose 113 Medications Medications Current Medications Atorvastatin Calcium (Lipitor) 40 mg DAILY PO Last administered on 02/20/17 09:46; Admin Dose 40 MG; Start 02/18/17 at 09:00 Carvedilol (Coreg) 25 mg BID PO Last administered on 02/21/17 09:49; Admin Dose 25 MG; Start 02/17/17 at 21:00 Furosemide (Lasix) 40 mg DAILY PO Last administered on 02/20/17 09:47; Admin Dose 40 MG; Start 02/18/17 at 09:00 Isosorbide Mononitrate (Imdur) 60 mg DAILY PO Last administered on 02/21/17 09:49; Admin Dose 60 MG; Start 02/18/17 at 09:00 Nitroglycerin (Nitroglycerin (Sl Tab) 0.4 Mg) 0.4 tab [id number] PRN SL CHEST PAIN; Start 02/17/17 at 19:00 Warfarin Sodium (Coumadin) 5 mg DAILY@17 PO Last administered on 02/20/17 17: 54; Admin Dose 5 MG; Start 02/17/17 at 21:00 Diagnostic Test (Pha) (Accu-Chek) 1 ea 02 XX Last administered on 02/19/17 02 :00; Admin Dose 1 EA; Start 02/18/17 at 02:00 Diagnostic Test (Pha) (Accu-Chek) 1 ea 02 XX Last administered on 02/19/17 02 :00; Admin Dose 1 EA; Start 02/18/17 at 02:00 Miscellaneous Information 1 ea NOTE XX ; Start 02/17/17 at 20:00 Glucose (Glutose) 15 gm Q15M PRN PO DECREASED GLUCOSE; Start 02/17/17 at 20:00 Glucose (Glutose) 22.5 gm Q15M PRN PO DECREASED GLUCOSE; Start 02/17/17 at 20: 00 Dextrose (D50w Syringe) 25 ml Q15M PRN IV DECREASED GLUCOSE; Start 02/17/17 at 20:00 Dextrose (D50w Syringe) 50 ml Q15M PRN IV DECREASED GLUCOSE; Start 02/17/17 at 20:00 Glucagon (Glucagen) 1 mg Q15M PRN IM DECREASED GLUCOSE; Start 02/17/17 at 20: 00 Glucose (Glutose) 15 gm Q15M PRN BUCCAL DECREASED GLUCOSE; Start 02/17/17 at 20:00 Ondansetron HCl (Zofran Inj) 4 mg Q6H PRN IV NAUSEA AND/OR VOMITING; Start at 23:30 Acetaminophen (Tylenol Tab) 650 mg Q6H PRN PO PAIN LEVEL 1-3 OR FEVER Last administered on 02/20/17 00:12; Admin Dose 650 MG; Start 02/17/17 at 23:30 Docusate Sodium (Colace) 100 mg Q12H PRN PO CONSTIPATION Last administered on 02/18/17 08:42; Admin Dose 100 MG; Start 02/17/17 at 23:30 Magnesium Hydroxide (Milk Of Mag) 30 ml DAILY PRN PO CONSTIPATION; Start 02/17 at 23:30 Bisacodyl (Dulcolax) 5 mg DAILY PRN PO CONSTIPATION; Start 02/17/17 at 23:30 Lactulose 20 gm 20 gm DAILY PRN PO CONSTIPATION; Start 02/20/17 at 12:30 Potassium Chloride/Dextrose (KCl/D5W) 265 ml @ 88.333 mls/ hr ONCE PRN IVPB OTHER; Start 02/21/17 at 06:00; Stop 02/21/17 at 14:00 Lisinopril (Zestril) 5 mg DAILY PO ; Start 02/22/17 at 09:00 AMADA STYLES M.D. Feb 21, 2017 13:11
--- NOTE | 2017-02-21 15:40 | CONS ---
Date/Time of Note Date/Time of Note DATE: 02/21/17 TIME: 15:39 Assessment/Plan Assessment/Plan Additional Assessment/Plan 81 yo female with history of HTN, HLD, DM, anemia, afib, PPM, CKD, CHF admitted with syncopal event. Head CT and Duplex unrevealing anemia work up in progress- aspirin and coumadin are being held would recommend checking Orthostatic Vital Signs continue tele monitoring, check PPM to ensure functioning appropriately cardiac work up as planned will follow Consultation Date/Type/Reason Admit Date/Time Feb 17, 2017 at 17:30 Initial Consult Date 02/19/17 Type of Consultation: Neurology Referring Provider: JAYA MUNROE MD 24 HR Interval Summary Free Text/Dictation No other episode of syncope. Had a colonoscopy today, doing well. No new complaints Exam/Review of Systems Vital Signs Vitals Vital Signs Date Time Temp Pulse Resp B/P Pulse Ox O2 Delivery O2 Flow Rate FiO2 02/21/17 12:40 92 26 105/66 95 Room Air 02/21/17 11:08 98.2 Intake and Output 02/20/17 02/20/17 02/21/17 15:00 23:00 07:00 Intake Total 800 ml 1140 ml Balance 800 ml 1140 ml Exam Constitutional: alert, oriented, well developed Psych: nl mood/affect, no complaints Head: atraumatic, normocephalic Eyes: EOMI, nl conjunctiva, nl lids, nl sclera ENMT: mucosa pink and moist, nl external ears & nose, nl lips & teeth, nl nasal mucosa & septum Neck: non-tender, supple Respiratory: clear to auscultation, normal air movement Cardiovascular: nl pulses, regular rate and rhythm Gastrointestinal: soft Musculoskeletal: nl extremities to inspection Neurological: [employer]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, nl mental status, nl speech, nl strength Results Result Diagram: 02/21/17 0533 02/21/17 0533 Results 24 hrs Laboratory Tests Test 02/20/17 17:52 02/20/17 18:20 02/20/17 21:06 02/21/17 01:03 Bedside Glucose 176 128 Troponin I < 0.012 < 0.012 Test 02/21/17 05:33 02/21/17 05:38 02/21/17 08:35 02/21/17 13:13 White Blood Count 8.3 Red Blood Count 3.05 L Hemoglobin 8.5 L Hematocrit 27.7 L Mean Corpuscular Volume 90.8 Mean Corpuscular Hemoglobin 27.9 L Mean Corpuscular Hemoglobin Concent 30.7 L Red Cell Distribution Width 14.8 H Platelet Count 244 Mean Platelet Volume 11.4 H Neutrophils % 76.4 Lymphocytes % 11.2 L Monocytes % 10.5 Eosinophils % 1.0 Basophils % 0.4 Nucleated Red Blood Cells % 0.0 Neutrophils # 6.3 Lymphocytes # 0.9 Monocytes # 0.9 Eosinophils # 0.1 Basophils # 0.0 Nucleated Red Blood Cells # 0.0 Sodium Level 140 Potassium Level 3.6 Chloride Level 103 Carbon Dioxide Level 26 Anion Gap 15 Blood Urea Nitrogen 32 H Creatinine 1.27 H Glucose Level 118 Calcium Level 9.1 Troponin I < 0.012 < 0.012 Prothrombin Time 26.2 H Prothrombin Time Ratio 2.0 INR International Normalized Ratio 2.37 Bedside Glucose 113 Medications Medications Current Medications Atorvastatin Calcium (Lipitor) 40 mg DAILY PO Last administered on 02/20/17 09:46; Admin Dose 40 MG; Start 02/18/17 at 09:00 Carvedilol (Coreg) 25 mg BID PO Last administered on 02/21/17 09:49; Admin Dose 25 MG; Start 02/17/17 at 21:00 Furosemide (Lasix) 40 mg DAILY PO Last administered on 02/20/17 09:47; Admin Dose 40 MG; Start 02/18/17 at 09:00 Isosorbide Mononitrate (Imdur) 60 mg DAILY PO Last administered on 02/21/17 09:49; Admin Dose 60 MG; Start 02/18/17 at 09:00 Nitroglycerin (Nitroglycerin (Sl Tab) 0.4 Mg) 0.4 tab [id number] PRN SL CHEST PAIN; Start 02/17/17 at 19:00 Warfarin Sodium (Coumadin) 5 mg DAILY@17 PO Last administered on 02/20/17 17: 54; Admin Dose 5 MG; Start 02/17/17 at 21:00 Diagnostic Test (Pha) (Accu-Chek) 1 ea 02 XX Last administered on 02/19/17 02 :00; Admin Dose 1 EA; Start 02/18/17 at 02:00 Diagnostic Test (Pha) (Accu-Chek) 1 ea 02 XX Last administered on 02/19/17 02 :00; Admin Dose 1 EA; Start 02/18/17 at 02:00 Miscellaneous Information 1 ea NOTE XX ; Start 02/17/17 at 20:00 Glucose (Glutose) 15 gm Q15M PRN PO DECREASED GLUCOSE; Start 02/17/17 at 20:00 Glucose (Glutose) 22.5 gm Q15M PRN PO DECREASED GLUCOSE; Start 02/17/17 at 20: 00 Dextrose (D50w Syringe) 25 ml Q15M PRN IV DECREASED GLUCOSE; Start 02/17/17 at 20:00 Dextrose (D50w Syringe) 50 ml Q15M PRN IV DECREASED GLUCOSE; Start 02/17/17 at 20:00 Glucagon (Glucagen) 1 mg Q15M PRN IM DECREASED GLUCOSE; Start 02/17/17 at 20: 00 Glucose (Glutose) 15 gm Q15M PRN BUCCAL DECREASED GLUCOSE; Start 02/17/17 at 20:00 Ondansetron HCl (Zofran Inj) 4 mg Q6H PRN IV NAUSEA AND/OR VOMITING; Start at 23:30 Acetaminophen (Tylenol Tab) 650 mg Q6H PRN PO PAIN LEVEL 1-3 OR FEVER Last administered on 02/20/17 00:12; Admin Dose 650 MG; Start 02/17/17 at 23:30 Docusate Sodium (Colace) 100 mg Q12H PRN PO CONSTIPATION Last administered on 02/18/17 08:42; Admin Dose 100 MG; Start 02/17/17 at 23:30 Magnesium Hydroxide (Milk Of Mag) 30 ml DAILY PRN PO CONSTIPATION; Start 02/17 at 23:30 Bisacodyl (Dulcolax) 5 mg DAILY PRN PO CONSTIPATION; Start 02/17/17 at 23:30 Lactulose (Enulose) 20 gm DAILY PRN PO CONSTIPATION; Start 02/20/17 at 12:30 Lisinopril (Zestril) 5 mg DAILY PO ; Start 02/22/17 at 09:00 JOSEPH VALLES MD Feb 21, 2017 15:40
[2017-02-21] MEDS: WARFARIN 5 MG TAB PO SCH (17:55)
[2017-02-22] VITALS (12 sets, daily range): BP systolic 93–125; BP diastolic 55–71; PULSE 61–86; RESP 18–21
[2017-02-22] MEDS: ACCU-CHEK XX SCH ×2 (02:00)
--- NOTE | 2017-02-22 02:08 | GILP ---
DATE OF PROCEDURE: PROCEDURE: Esophagogastroduodenoscopy. PREOPERATIVE DIAGNOSIS: Patient presenting with history of anemia, guaiac positive stools. Patient has been on Coumadin, rule out bleeding ulcer disease, arteriovenous malformation, etc. POSTOPERATIVE DIAGNOSES: 1. Minimal reflux esophagitis. 2. Minimal antral gastritis. DESCRIPTION OF PROCEDURE: After informed written consent was obtained, the patient was asked to lie on the left lateral side. Intravenous anesthesia was given by the anesthesiologist, Dr. Trotter. When the patient became somnolent, the Olympus video upper endoscope was introduced into the oroph arynx, then into the esophagus. Minimal erythema noted just above the GE junction indicating mild r eflux esophagitis, [place] classification A. Scope at this time was advanced into the stomach, one isolated erosion noted with minimal erythema in the antrum. Rest of the body and fundus of the stomach appeared normal. Duodenum was examined up to the end of the third portion. No additional a bnormalities detected. Endoscope at this time was withdrawn and the procedure was terminated. PLAN: Recommend Pepcid 20 mg p.o. b.i.d. Dictated By: JAIMEE ABRAHAM/NTS Conf#: [id number] DID#: [id number] CC: ASHLEY KAMINSKI MD;*EndCC*
--- NOTE | 2017-02-22 02:11 | GILP ---
DATE OF PROCEDURE: PROCEDURE: Colonoscopy. PREOPERATIVE DIAGNOSIS: Patient presenting with history of anemia and guaiac-positive stools. Proc edure performed to rule out colorectal neoplasm, arteriovenous malformation, polyps, etc. POSTOPERATIVE DIAGNOSES: 1. Two polyps noted in the mid transverse colon and the proximal transverse colon. One polyp from the mid transverse colon, brushings was done from this polyp. 2. Minimal internal and minimal external hemorrhoids were noted. DESCRIPTION OF PROCEDURE: After the informed written consent was obtained, the patient was asked to lie on the left lateral side. Intravenous anesthesia was given by anesthesiologist, . Wh en the patient became somnolent, the Olympus video colonoscope was introduced into the rectum and sc ope was advanced all the way to the cecum. About 1 cm flat polyp was noted in the mid transverse co lindsay. Biopsy cannot be done because of the high prothrombin time. Because of this, brushings were d one from this polyp and sent for histopathology. Another 5 mm polyp was noted near the hepatic flex ure and no biopsy was done. Rest of the colon appeared normal up to the cecum. On the way out, fur ther evaluation was carried out. No additional abnormalities detected, and a moderate degree of hem orrhoids were noted and the procedure was terminated. PLAN: Recommend further workup as indicated. Dictated By: JAIMEE JUNIOR MD [place]/JUSTO Conf#: [id number] DID#: [id number] CC: ASHLEY KAMINSKI MD;*EndCC*
[2017-02-22] MEDS: LISINOPRIL 5 MG TAB PO SCH (09:00)
[2017-02-22] MEDS: FUROSEMIDE 40 MG TAB PO SCH (09:00)
[2017-02-22] MEDS: ISOSORBIDE MONONITRATE(SR)60 MG TAB PO SCH (09:00)
[2017-02-22] MEDS: ATORVASTATIN 40 MG TAB PO SCH (09:01)
[2017-02-22] MEDS: INSULIN ASPART [NOVOLOG] 3 ML PEN SC SCH ×4 (09:09→22:16)
--- NOTE | 2017-02-22 13:53 | CONS ---
Date/Time of Note Date/Time of Note DATE: 02/22/17 TIME: 13:50 Assessment/Plan Assessment/Plan Chief Complaint/Hosp Course ASSESSMENT AND PLAN: An 81-year-old female with: 1. Syncope-? vasovagal. NL EF by echo 01/10 with no sig valve abnl and no ischemia with Nl EF by lexiscan 2. Carotid artery stenosis (less than 50% stenosis of internal carotid arteries bilaterally). 3. 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 Hypertension. 5. Dyslipidemia. 6. Diabetes mellitus. 7.anmeia-s/p EGD/colonscopy with polyps and esophagitis found Recc: -Tele to assess for arrythmia -Continue zestril/coreg -Continue statin -Continue coumadin with therapeutic INR -Continue lasix PO daily Problems: Consultation Date/Type/Reason Admit Date/Time Feb 17, 2017 at 17:30 Initial Consult Date 02/19/17 Type of Consultation: cardiology Reason for Consultation syncope/pre-op Referring Provider: JAYA MUNROE MD Exam/Review of Systems Vital Signs Vitals Vital Signs Date Time Temp Pulse Resp B/P Pulse Ox O2 Delivery O2 Flow Rate FiO2 02/22/17 12:01 78 02/22/17 11:44 98.1 19 99/55 98 02/21/17 12:40 Room Air Intake and Output 02/21/17 02/21/17 02/22/17 14:59 22:59 06:59 Intake Total 800 ml 600 ml Output Total 1600 ml Balance -800 ml 600 ml Exam Review of Systems: CONSTITUTIONAL: No fevers, chills. PULMONARY: No sob CARDIOVASCULAR: No chest pain/palpitations GASTROINTESTINAL: No nausea/vomiting. GENITOURINARY: No hematuria/dysuria. MUSCULOSKELETAL: No myagias/arthalgias. PSYCHIATRIC: The patient denies depression. NEUROLOGIC: No weakness Constitutional: alert, oriented Psych: no complaints Head: normocephalic ENMT: mucosa pink and moist Neck: jvd (8 cm water), supple Respiratory: clear to auscultation Cardiovascular: regular rate and rhythm Gastrointestinal: non-tender, soft Musculoskeletal: muscle tone (normal) Extremities: edema (none) Neurological: other (No focal deficits) Results Result Diagram: 02/22/17 0659 02/22/1759 Results 24 hrs Laboratory Tests Test 02/21/17 17:23 02/21/17 17:40 02/21/17 20:51 02/22/17 06:59 Bedside Glucose 143 116 Troponin I < 0.012 White Blood Count 8.4 Red Blood Count 2.82 L Hemoglobin 8.0 L Hematocrit 25.5 L Mean Corpuscular Volume 90.4 Mean Corpuscular Hemoglobin 28.4 L Mean Corpuscular Hemoglobin Concent 31.4 L Red Cell Distribution Width 14.6 H Platelet Count 232 Mean Platelet Volume 11.5 H Neutrophils % 74.3 Lymphocytes % 12.4 L Monocytes % 10.9 Eosinophils % 1.7 Basophils % 0.5 Nucleated Red Blood Cells % 0.0 Neutrophils # 6.3 Lymphocytes # 1.0 Monocytes # 0.9 Eosinophils # 0.1 Basophils # 0.0 Nucleated Red Blood Cells # 0.0 Sodium Level 135 Potassium Level 4.1 Chloride Level 101 Carbon Dioxide Level 25 Anion Gap 13 Blood Urea Nitrogen 23 H Creatinine 1.09 H Glucose Level 99 Uric Acid 6.8 Calcium Level 9.2 Magnesium Level 1.7 Total Bilirubin 0.5 Direct Bilirubin 0.00 Indirect Bilirubin 0.5 Aspartate Amino Transf (AST/SGOT) 19 Alanine Aminotransferase (ALT/SGPT) 32 Alkaline Phosphatase 76 Total Protein 5.9 L Albumin 2.8 L Globulin 3.10 Albumin/Globulin Ratio 0.90 Test 02/22/17 08:58 02/22/17 12:23 Bedside Glucose 178 127 Medications Medications Current Medications Atorvastatin Calcium (Lipitor) 40 mg DAILY PO Last administered on 02/22/17 09:01; Admin Dose 40 MG; Start 02/18/17 at 09:00 Carvedilol (Coreg) 25 mg BID PO Last administered on 02/22/17 09:01; Admin Dose 25 MG; Start 02/17/17 at 21:00 Furosemide (Lasix) 40 mg DAILY PO Last administered on 02/22/17 09:00; Admin Dose 40 MG; Start 02/18/17 at 09:00 Isosorbide Mononitrate (Imdur) 60 mg DAILY PO Last administered on 02/22/17 09:00; Admin Dose 60 MG; Start 02/18/17 at 09:00 Nitroglycerin (Nitroglycerin (Sl Tab) 0.4 Mg) 0.4 tab [id number] PRN SL CHEST PAIN; Start 02/17/17 at 19:00 Warfarin Sodium (Coumadin) 5 mg DAILY@17 PO Last administered on 02/21/17 17: 55; Admin Dose 5 MG; Start 02/17/17 at 21:00 Diagnostic Test (Pha) (Accu-Chek) 1 ea 02 XX Last administered on 02/19/17 02 :00; Admin Dose 1 EA; Start 02/18/17 at 02:00 Miscellaneous Information 1 ea NOTE XX ; Start 02/17/17 at 20:00 Glucose (Glutose) 15 gm Q15M PRN PO DECREASED GLUCOSE; Start 02/17/17 at 20:00 Glucose (Glutose) 22.5 gm Q15M PRN PO DECREASED GLUCOSE; Start 02/17/17 at 20: 00 Dextrose (D50w Syringe) 25 ml Q15M PRN IV DECREASED GLUCOSE; Start 02/17/17 at 20:00 Dextrose (D50w Syringe) 50 ml Q15M PRN IV DECREASED GLUCOSE; Start 02/17/17 at 20:00 Glucagon (Glucagen) 1 mg Q15M PRN IM DECREASED GLUCOSE; Start 02/17/17 at 20: 00 Glucose (Glutose) 15 gm Q15M PRN BUCCAL DECREASED GLUCOSE; Start 02/17/17 at 20:00 Ondansetron HCl (Zofran Inj) 4 mg Q6H PRN IV NAUSEA AND/OR VOMITING; Start at 23:30 Acetaminophen (Tylenol Tab) 650 mg Q6H PRN PO PAIN LEVEL 1-3 OR FEVER Last administered on 02/20/17 00:12; Admin Dose 650 MG; Start 02/17/17 at 23:30 Docusate Sodium (Colace) 100 mg Q12H PRN PO CONSTIPATION Last administered on 02/18/17 08:42; Admin Dose 100 MG; Start 02/17/17 at 23:30 Magnesium Hydroxide (Milk Of Mag) 30 ml DAILY PRN PO CONSTIPATION; Start 02/17 at 23:30 Bisacodyl (Dulcolax) 5 mg DAILY PRN PO CONSTIPATION; Start 02/17/17 at 23:30 Lactulose (Enulose) 20 gm DAILY PRN PO CONSTIPATION; Start 02/20/17 at 12:30 Lisinopril (Zestril) 5 mg DAILY PO Last administered on 02/22/17t 09:00; Admin Dose 5 MG; Start 02/22/17 at 09:00 Indomethacin (Indocin) 50 mg DAILY PO ; Start 02/22/17 at 11:30; Stop 02/25/17 at 11:29 MARINA RIOS Feb 22, 2017 13:53
[2017-02-22] MEDS: INDOMETHACIN 50 MG PO SCH (14:01)
[2017-02-22] MEDS: WARFARIN 5 MG TAB PO SCH (17:28)
--- NOTE | 2017-02-22 18:18 | PN ---
Date/Time of Note Date/Time of Note DATE: 02/22/17 TIME: 18:16 Assessment/Plan VTE Prophylaxis VTE Prophylaxis Intervention: other Lines/Catheters IV Catheter Type (from Nrs): Saline Lock Urinary Cath still in place: No Assessment/Plan Chief Complaint/Hosp Course # Presyncopy could be vasovagal/ neuro/anemia vs spinal stenosis # hx CHF, systolic # Chest pain with recent stress test negative, VQ scan negative # .Atrial fibrillation, controlled #. Renal insufficiency, CKD mild #. Anemia FOBT negative, 1b12 , folic acid normal # Morbid obesity # Dm type II controlled # Hx pacemaker #CAD #. Dyslipidemia S/P EGD AND COLONOSCOPY ANKEL PAIN PLAN PAIN MEDS Problems: Subjective 24 Hr Interval Summary Subjective hx not possible: other (RT ANKLE PAIN+) Exam/Review of Systems Vital Signs Vitals Vital Signs Date Time Temp Pulse Resp B/P Pulse Ox O2 Delivery O2 Flow Rate FiO2 02/22/17 16:02 86 02/22/17 15:50 97.5 21 112/64 98 02/21/17 12:40 Room Air Intake and Output 02/21/17 02/21/17 02/22/17 15:00 23:00 07:00 Intake Total 800 ml 600 ml Output Total 1600 ml Balance -800 ml 600 ml Exam Respiratory: clear to auscultation Cardiovascular: regular rate and rhythm Gastrointestinal: bowel sounds (+), soft Musculoskeletal: joint tenderness (+) Extremities: edema Results Result Diagram: 02/22/17 0659 02/22/17 0659 Results 24 hrs Laboratory Tests Test 02/21/17 20:51 02/22/17 06:59 02/22/17 08:58 02/22/17 12:23 Bedside Glucose 116 178 127 White Blood Count 8.4 Red Blood Count 2.82 L Hemoglobin 8.0 L Hematocrit 25.5 L Mean Corpuscular Volume 90.4 Mean Corpuscular Hemoglobin 28.4 L Mean Corpuscular Hemoglobin Concent 31.4 L Red Cell Distribution Width 14.6 H Platelet Count 232 Mean Platelet Volume 11.5 H Neutrophils % 74.3 Lymphocytes % 12.4 L Monocytes % 10.9 Eosinophils % 1.7 Basophils % 0.5 Nucleated Red Blood Cells % 0.0 Neutrophils # 6.3 Lymphocytes # 1.0 Monocytes # 0.9 Eosinophils # 0.1 Basophils # 0.0 Nucleated Red Blood Cells # 0.0 Sodium Level 135 Potassium Level 4.1 Chloride Level 101 Carbon Dioxide Level 25 Anion Gap 13 Blood Urea Nitrogen 23 H Creatinine 1.09 H Glucose Level 99 Uric Acid 6.8 Calcium Level 9.2 Magnesium Level 1.7 Total Bilirubin 0.5 Direct Bilirubin 0.00 Indirect Bilirubin 0.5 Aspartate Amino Transf (AST/SGOT) 19 Alanine Aminotransferase (ALT/SGPT) 32 Alkaline Phosphatase 76 Total Protein 5.9 L Albumin 2.8 L Globulin 3.10 Albumin/Globulin Ratio 0.90 Test 02/22/17 13:53 02/22/17 17:29 Prothrombin Time 29.3 H Prothrombin Time Ratio 2.3 INR International Normalized Ratio 2.73 Bedside Glucose 188 Medications Medications Current Medications Atorvastatin Calcium (Lipitor) 40 mg DAILY PO Last administered on 02/22/17 09:01; Admin Dose 40 MG; Start 02/18/17 at 09:00 Carvedilol (Coreg) 25 mg BID PO Last administered on 02/22/17 09:01; Admin Dose 25 MG; Start 02/17/17 at 21:00 Furosemide (Lasix) 40 mg DAILY PO Last administered on 02/22/17 09:00; Admin Dose 40 MG; Start 02/18/17 at 09:00 Isosorbide Mononitrate (Imdur) 60 mg DAILY PO Last administered on 02/22/17 09:00; Admin Dose 60 MG; Start 02/18/17 at 09:00 Nitroglycerin (Nitroglycerin (Sl Tab) 0.4 Mg) 0.4 tab [id number] PRN SL CHEST PAIN; Start 02/17/17 at 19:00 Warfarin Sodium (Coumadin) 5 mg DAILY@17 PO Last administered on 02/22/17 17: 28; Admin Dose 5 MG; Start 02/17/17 at 21:00 Diagnostic Test (Pha) (Accu-Chek) 1 ea 02 XX Last administered on 02/19/17 02 :00; Admin Dose 1 EA; Start 02/18/17 at 02:00 Miscellaneous Information 1 ea NOTE XX ; Start 02/17/17 at 20:00 Glucose (Glutose) 15 gm Q15M PRN PO DECREASED GLUCOSE; Start 02/17/17 at 20:00 Glucose (Glutose) 22.5 gm Q15M PRN PO DECREASED GLUCOSE; Start 02/17/17 at 20: 00 Dextrose (D50w Syringe) 25 ml Q15M PRN IV DECREASED GLUCOSE; Start 02/17/17 at 20:00 Dextrose (D50w Syringe) 50 ml Q15M PRN IV DECREASED GLUCOSE; Start 02/17/17 at 20:00 Glucagon (Glucagen) 1 mg Q15M PRN IM DECREASED GLUCOSE; Start 02/17/17 at 20: 00 Glucose (Glutose) 15 gm Q15M PRN BUCCAL DECREASED GLUCOSE; Start 02/17/17 at 20:00 Ondansetron HCl (Zofran Inj) 4 mg Q6H PRN IV NAUSEA AND/OR VOMITING; Start at 23:30 Acetaminophen (Tylenol Tab) 650 mg Q6H PRN PO PAIN LEVEL 1-3 OR FEVER Last administered on 02/20/17 00:12; Admin Dose 650 MG; Start 02/17/17 at 23:30 Docusate Sodium (Colace) 100 mg Q12H PRN PO CONSTIPATION Last administered on 02/18/17 08:42; Admin Dose 100 MG; Start 02/17/17 at 23:30 Magnesium Hydroxide (Milk Of Mag) 30 ml DAILY PRN PO CONSTIPATION; Start 02/17 at 23:30 Bisacodyl (Dulcolax) 5 mg DAILY PRN PO CONSTIPATION; Start 02/17/17 at 23:30 Lactulose (Enulose) 20 gm DAILY PRN PO CONSTIPATION; Start 02/20/17 at 12:30 Lisinopril (Zestril) 5 mg DAILY PO Last administered on 02/22/17 09:00; Admin Dose 5 MG; Start 02/22/17 at 09:00 Indomethacin (Indocin) 50 mg DAILY PO Last administered on 02/22/17 14:01; Admin Dose 50 MG; Start 02/22/17 at 11:30; Stop 02/25/17 at 11:29 ASHLEY KAMINSKI MD Feb 22, 2017 18:18
--- NOTE | 2017-02-22 18:46 | CONS ---
Date/Time of Note Date/Time of Note DATE: 02/22/17 TIME: 18:45 Consultation Date/Type/Reason Admit Date/Time Feb 17, 2017 at 17:30 Initial Consult Date 02/19/17 Type of Consultation: cardiology Reason for Consultation anemia Referring Provider: JAYA MUNROE MD 24 HR Interval Summary Free Text/Dictation reason for anemia unclear r/o occult malignancy Exam/Review of Systems Vital Signs Vitals Vital Signs Date Time Temp Pulse Resp B/P Pulse Ox O2 Delivery O2 Flow Rate FiO2 02/22/17 16:02 86 02/22/17 15:50 97.5 21 112/64 98 02/21/17 12:40 Room Air Intake and Output 02/21/17 02/21/17 02/22/17 15:00 23:00 07:00 Intake Total 800 ml 600 ml Output Total 1600 ml Balance -800 ml 600 ml Results Result Diagram: 02/22/17 0659 02/22/17 0659 Results 24 hrs Laboratory Tests Test 02/21/17 20:51 02/22/17 06:59 02/22/17 08:58 02/22/17 12:23 Bedside Glucose 116 178 127 White Blood Count 8.4 Red Blood Count 2.82 L Hemoglobin 8.0 L Hematocrit 25.5 L Mean Corpuscular Volume 90.4 Mean Corpuscular Hemoglobin 28.4 L Mean Corpuscular Hemoglobin Concent 31.4 L Red Cell Distribution Width 14.6 H Platelet Count 232 Mean Platelet Volume 11.5 H Neutrophils % 74.3 Lymphocytes % 12.4 L Monocytes % 10.9 Eosinophils % 1.7 Basophils % 0.5 Nucleated Red Blood Cells % 0.0 Neutrophils # 6.3 Lymphocytes # 1.0 Monocytes # 0.9 Eosinophils # 0.1 Basophils # 0.0 Nucleated Red Blood Cells # 0.0 Sodium Level 135 Potassium Level 4.1 Chloride Level 101 Carbon Dioxide Level 25 Anion Gap 13 Blood Urea Nitrogen 23 H Creatinine 1.09 H Glucose Level 99 Uric Acid 6.8 Calcium Level 9.2 Magnesium Level 1.7 Total Bilirubin 0.5 Direct Bilirubin 0.00 Indirect Bilirubin 0.5 Aspartate Amino Transf (AST/SGOT) 19 Alanine Aminotransferase (ALT/SGPT) 32 Alkaline Phosphatase 76 Total Protein 5.9 L Albumin 2.8 L Globulin 3.10 Albumin/Globulin Ratio 0.90 Test 02/22/17 13:53 02/22/17 17:29 Prothrombin Time 29.3 H Prothrombin Time Ratio 2.3 INR International Normalized Ratio 2.73 Bedside Glucose 188 Medications Medications Current Medications Atorvastatin Calcium (Lipitor) 40 mg DAILY PO Last administered on 02/22/17 09:01; Admin Dose 40 MG; Start 02/18/17 at 09:00 Carvedilol (Coreg) 25 mg BID PO Last administered on 02/22/17 09:01; Admin Dose 25 MG; Start 02/17/17 at 21:00 Furosemide (Lasix) 40 mg DAILY PO Last administered on 02/22/17 09:00; Admin Dose 40 MG; Start 02/18/17 at 09:00 Isosorbide Mononitrate (Imdur) 60 mg DAILY PO Last administered on 02/22/17 09:00; Admin Dose 60 MG; Start 02/18/17 at 09:00 Nitroglycerin (Nitroglycerin (Sl Tab) 0.4 Mg) 0.4 tab [id number] PRN SL CHEST PAIN; Start 02/17/17 at 19:00 Warfarin Sodium (Coumadin) 5 mg DAILY@17 PO Last administered on 02/22/17 17: 28; Admin Dose 5 MG; Start 02/17/17 at 21:00 Diagnostic Test (Pha) (Accu-Chek) 1 ea 02 XX Last administered on 02/19/17 02 :00; Admin Dose 1 EA; Start 02/18/17 at 02:00 Miscellaneous Information 1 ea NOTE XX ; Start 02/17/17 at 20:00 Glucose (Glutose) 15 gm Q15M PRN PO DECREASED GLUCOSE; Start 02/17/17 at 20:00 Glucose (Glutose) 22.5 gm Q15M PRN PO DECREASED GLUCOSE; Start 02/17/17 at 20: 00 Dextrose (D50w Syringe) 25 ml Q15M PRN IV DECREASED GLUCOSE; Start 02/17/17 at 20:00 Dextrose (D50w Syringe) 50 ml Q15M PRN IV DECREASED GLUCOSE; Start 02/17/17 at 20:00 Glucagon (Glucagen) 1 mg Q15M PRN IM DECREASED GLUCOSE; Start 02/17/17 at 20: 00 Glucose (Glutose) 15 gm Q15M PRN BUCCAL DECREASED GLUCOSE; Start 02/17/17 at 20:00 Ondansetron HCl (Zofran Inj) 4 mg Q6H PRN IV NAUSEA AND/OR VOMITING; Start at 23:30 Acetaminophen (Tylenol Tab) 650 mg Q6H PRN PO PAIN LEVEL 1-3 OR FEVER Last administered on 02/20/17 00:12; Admin Dose 650 MG; Start 02/17/17 at 23:30 Docusate Sodium (Colace) 100 mg Q12H PRN PO CONSTIPATION Last administered on 02/18/17 08:42; Admin Dose 100 MG; Start 02/17/17 at 23:30 Magnesium Hydroxide (Milk Of Mag) 30 ml DAILY PRN PO CONSTIPATION; Start 02/17 at 23:30 Bisacodyl (Dulcolax) 5 mg DAILY PRN PO CONSTIPATION; Start 02/17/17 at 23:30 Lactulose (Enulose) 20 gm DAILY PRN PO CONSTIPATION; Start 02/20/17 at 12:30 Lisinopril (Zestril) 5 mg DAILY PO Last administered on 02/22/17 09:00; Admin Dose 5 MG; Start 02/22/17 at 09:00 Indomethacin (Indocin) 50 mg DAILY PO Last administered on 02/22/17 14:01; Admin Dose 50 MG; Start 02/22/17 at 11:30; Stop 02/25/17 at 11:29 JAIMEE JUNIOR MD Feb 22, 2017 18:46
[2017-02-22] MEDS: BARIUM SULF 2% 450 ML BTL (BERRY SMOOTHIE) PO ONE (19:00)
[2017-02-23] VITALS (12 sets, daily range): BP systolic 95–135; BP diastolic 49–75; PULSE 64–82; RESP 19–20
[2017-02-23] MEDS: ACCU-CHEK XX SCH (02:00)
[2017-02-23] MEDS: INSULIN ASPART [NOVOLOG] 3 ML PEN SC SCH ×4 (08:00→21:00)
[2017-02-23] MEDS: BARIUM SULF 2% 450 ML BTL (BERRY SMOOTHIE) PO ONE (08:30)
[2017-02-23] MEDS: LISINOPRIL 5 MG TAB PO SCH (09:00)
[2017-02-23] MEDS: FUROSEMIDE 40 MG TAB PO SCH (09:00)
[2017-02-23] MEDS: INDOMETHACIN 50 MG PO SCH (09:00)
[2017-02-23] MEDS: ATORVASTATIN 40 MG TAB PO SCH (09:00)
[2017-02-23] MEDS: ISOSORBIDE MONONITRATE(SR)60 MG TAB PO SCH (09:00)
[2017-02-23] MEDS: ACETAMINOPHEN 325 MG TAB PO PRN (10:19)
[2017-02-23] MEDS: WARFARIN 5 MG TAB PO SCH (17:16)
--- NOTE | 2017-02-23 17:53 | PN ---
Date/Time of Note Date/Time of Note DATE: 02/23/17 TIME: 17:52 Assessment/Plan VTE Prophylaxis VTE Prophylaxis Intervention: other Lines/Catheters IV Catheter Type (from Nrs): Saline Lock Urinary Cath still in place: No Assessment/Plan Chief Complaint/Hosp Course # Presyncopy could be vasovagal/ neuro/anemia vs spinal stenosis # hx CHF, systolic # Chest pain with recent stress test negative, VQ scan negative # .Atrial fibrillation, controlled #. Renal insufficiency, CKD mild #. Anemia FOBT negative, 1b12 , folic acid normal # Morbid obesity # Dm type II controlled # Hx pacemaker #CAD #. Dyslipidemia S/P EGD AND COLONOSCOPY ANKEL PAIN better PLAN PAIN MEDS pt ot home soon Problems: Subjective 24 Hr Interval Summary Subjective hx not possible: other (ankle pain better) Exam/Review of Systems Vital Signs Vitals Vital Signs Date Time Temp Pulse Resp B/P Pulse Ox O2 Delivery O2 Flow Rate FiO2 02/23/17 16:00 80 02/23/17 15:46 98.1 19 117/75 96 02/21/17 12:40 Room Air Intake and Output 02/22/17 02/22/17 02/23/17 15:00 23:00 07:00 Intake Total 500 ml 400 ml Balance 500 ml 400 ml Exam Neck: supple Respiratory: clear to auscultation Cardiovascular: regular rate and rhythm Gastrointestinal: soft Musculoskeletal: nl extremities to inspection Extremities: normal pulses Results Result Diagram: 02/22/17 0659 02/23/17 0651 Results 24 hrs Laboratory Tests Test 02/22/17 22:15 02/23/17 06:51 02/23/17 08:42 02/23/17 12:02 Bedside Glucose 121 108 98 Prothrombin Time 30.0 H Prothrombin Time Ratio 2.3 INR International Normalized Ratio 2.81 Sodium Level 135 Potassium Level 4.4 Chloride Level 98 Carbon Dioxide Level 26 Anion Gap 15 Blood Urea Nitrogen 27 H Creatinine 1.36 H Glucose Level 104 Calcium Level 8.9 Total Bilirubin 0.6 Direct Bilirubin 0.00 Indirect Bilirubin 0.6 Aspartate Amino Transf (AST/SGOT) 22 Alanine Aminotransferase (ALT/SGPT) 25 Alkaline Phosphatase 81 Total Protein 6.4 Albumin 3.5 Globulin 2.90 Albumin/Globulin Ratio 1.20 Test 02/23/17 17:18 Bedside Glucose 167 Medications Medications Current Medications Atorvastatin Calcium (Lipitor) 40 mg DAILY PO Last administered on 02/22/17 09:01; Admin Dose 40 MG; Start 02/18/17 at 09:00 Carvedilol (Coreg) 25 mg BID PO Last administered on 02/22/17 09:01; Admin Dose 25 MG; Start 02/17/17 at 21:00 Furosemide (Lasix) 40 mg DAILY PO Last administered on 02/22/17 09:00; Admin Dose 40 MG; Start 02/18/17 at 09:00 Isosorbide Mononitrate (Imdur) 60 mg DAILY PO Last administered on 02/22/17 09:00; Admin Dose 60 MG; Start 02/18/17 at 09:00 Nitroglycerin (Nitroglycerin (Sl Tab) 0.4 Mg) 0.4 tab [id number] PRN SL CHEST PAIN; Start 02/17/17 at 19:00 Warfarin Sodium (Coumadin) 5 mg DAILY@17 PO Last administered on 02/23/17 17: 16; Admin Dose 5 MG; Start 02/17/17 at 21:00 Diagnostic Test (Pha) (Accu-Chek) 1 ea 02 XX Last administered on 02/19/17 02 :00; Admin Dose 1 EA; Start 02/18/17 at 02:00 Miscellaneous Information 1 ea NOTE XX ; Start 02/17/17 at 20:00 Glucose (Glutose) 15 gm Q15M PRN PO DECREASED GLUCOSE; Start 02/17/17 at 20:00 Glucose (Glutose) 22.5 gm Q15M PRN PO DECREASED GLUCOSE; Start 02/17/17 at 20: 00 Dextrose (D50w Syringe) 25 ml Q15M PRN IV DECREASED GLUCOSE; Start 02/17/17 at 20:00 Dextrose (D50w Syringe) 50 ml Q15M PRN IV DECREASED GLUCOSE; Start 02/17/17 at 20:00 Glucagon (Glucagen) 1 mg Q15M PRN IM DECREASED GLUCOSE; Start 02/17/17 at 20: 00 Glucose (Glutose) 15 gm Q15M PRN BUCCAL DECREASED GLUCOSE; Start 02/17/17 at 20:00 Ondansetron HCl (Zofran Inj) 4 mg Q6H PRN IV NAUSEA AND/OR VOMITING; Start at 23:30 Acetaminophen (Tylenol Tab) 650 mg Q6H PRN PO PAIN LEVEL 1-3 OR FEVER Last administered on 02/23/17 10:19; Admin Dose 650 MG; Start 02/17/17 at 23:30 Docusate Sodium (Colace) 100 mg Q12H PRN PO CONSTIPATION Last administered on 02/18/17 08:42; Admin Dose 100 MG; Start 02/17/17 at 23:30 Magnesium Hydroxide (Milk Of Mag) 30 ml DAILY PRN PO CONSTIPATION; Start 02/17 at 23:30 Bisacodyl (Dulcolax) 5 mg DAILY PRN PO CONSTIPATION; Start 02/17/17 at 23:30 Lactulose (Enulose) 20 gm DAILY PRN PO CONSTIPATION; Start 02/20/17 at 12:30 Lisinopril (Zestril) 5 mg DAILY PO Last administered on 02/22/17 09:00; Admin Dose 5 MG; Start 02/22/17 at 09:00 Indomethacin (Indocin) 50 mg DAILY PO Last administered on 02/22/17 14:01; Admin Dose 50 MG; Start 02/22/17 at 11:30; Stop 02/25/17 at 11:29 ASHLEY KAMINSKI MD Feb 23, 2017 17:53
--- NOTE | 2017-02-23 18:19 | RADRPT ---
PROCEDURE: CT ABDOMEN AND PELVIS WITHOUT CONTRAST CLINICAL INDICATION: 81-year of age, female . Anemia. TECHNIQUE: CT of the abdomen and pelvis was performed without intravenous contrast. Oral contrast wa s not administered prior to the examination. Coronal and sagittal reformatted images were obtained from the axial source images. Images were revi ewed on a high-resolution PACS workstation. Dose information: Based on a 32 cm phantom, the estimated radiation dose (CTDIvol mGy) for each seri es in this exam is 21. The estimated cumulative dose (DLP mGy-cm) is 1235. One or more of the following dose reduction techniques were used: - Automated exposure control. - Adjustment of the mA and/or kV according to patient size. - Use of iterative reconstruction technique. COMPARISON: None available. FINDINGS: In the absence of intravenous contrast, the study constitutes a limited assessment of the solid orga ns, bowel and vessels. LUNG BASES: Small fissural nodule right minor fissure represents an intrapulmonary lymph node (3/2). Calcified granuloma right lower lobe. Right greater than left bilateral dependent atelectasis. Trac e right pleural effusion. Diffuse cardiomegaly with four-chamber enlargement. Multivessel coronary a rtery calcification. There is a pacemaker in the right ventricle. Trace pericardial fluid. ABDOMEN/PELVIS: Liver: Right hepatic lobe is somewhat small and left lobe is large. Negative for nodularity of the l iver surface contour and no focal lesions are identified on noncontrast CT. Gallbladder: Absent. Bile ducts: No intrahepatic or extrahepatic biliary duct dilatation. Spleen: 1 cm subcapsular hypodensity inferior spleen is incompletely characterized that likely repre sents a cyst (3/50). Negative for splenomegaly. Spleen measures 8.7 cm in length. Pancreas: Normal noncontrast appearance. Adrenal glands: Benign calcification right adrenal gland. Otherwise normal. Kidneys and ureters: Bilateral renal parenchymal thinning. 2.6 cm hypodensity superior pole right ki dney likely represents a cyst. Negative for urinary calculi or hydronephrosis. Aorta and IVC: Atherosclerotic calcification and tortuosity aorta and iliac vessels. No aneurysm. Lymph nodes: Normal noncontrast appearance. Gastrointestinal tract: Normal noncontrast appearance. Appendix: Normal Bladder: Normal noncontrast appearance. Pelvic Organs: Uterus is absent. Ovaries are atrophic. Peritoneal cavity: No free fluid or free intraperitoneal air. Abdominal wall: Small umbilical hernia containing a knuckle of small bowel without obstruction or st rangulation. Injection granulomas bilateral buttocks. BONES: Musculoskeletal: Thoracic spine DISH and multilevel degenerative changes throughout spine and in the bony pelvis . Bones are osteopenic. No suspicious bone lesions. IMPRESSION: 1. Negative for evidence of a hematoma in the abdomen, pelvis or abdominal wall. Cause for anemia is not evident. 2. Cardiomegaly with coronary artery calcification and a pacemaker. Trace right pleural effusion. 3. Small umbilical hernia containing small bowel without obstruction or strangulation. RPTAT: HCTS Physician Stephen Date Time Electronically viewed and signed by Lu Fields Physician on 02/23/2017 18:18 /
[2017-02-24] VITALS (11 sets, daily range): BP systolic 121–141; BP diastolic 58–69; PULSE 73–80; RESP 16–21
[2017-02-24] MEDS: ACCU-CHEK XX SCH (02:00)
--- NOTE | 2017-02-24 05:46 | PN ---
DATE: 02/24/2017 SUBJECTIVE: At this time, upon questioning the patient, the patient has no abdominal pain, no nause a, no vomiting, no evidence of GI bleeding. PHYSICAL EXAMINATION: GENERAL: The patient is alert. ABDOMEN: Soft, nontender. The patient has borderline anemia as noted before. Please look into the laboratory values. CLINICAL IMPRESSION: The patient had upper endoscopy, lower endoscopy which did not explain the pro per findings for anemia, hence CAT scan of the abdomen is done. At this time, results of the CAT sc an of the abdomen is pending to see if it would explain any other causes of anemia. Dictated By: JAIMEE JUNIOR MD NC/JUSTO Conf#: [id number] DID#: [id number] CC: ASHLEY KAMINSKI MD;*EndCC*
--- NOTE | 2017-02-24 05:46 | PN ---
DATE: 02/24/2017 SUBJECTIVE: At this time, upon questioning the patient, the patient has no abdominal pain, no nause a, no vomiting, no evidence of GI bleeding. PHYSICAL EXAMINATION: GENERAL: The patient is alert. ABDOMEN: Soft, nontender. The patient has borderline anemia as noted before. Please look into the laboratory values. CLINICAL IMPRESSION: The patient had upper endoscopy, lower endoscopy which did not explain the pro per findings for anemia, hence CAT scan of the abdomen is done. At this time, results of the CAT sc an of the abdomen is pending to see if it would explain any other causes of anemia. Dictated By: JAIMEE JUNIOR MD NC/JUSTO Conf#: [id number] DID#: [id number] CC: ASHLEY KAMINSKI MD;*EndCC*
--- NOTE | 2017-02-24 05:46 | PN ---
DATE: 02/24/2017 SUBJECTIVE: At this time, upon questioning the patient, the patient has no abdominal pain, no nause a, no vomiting, no evidence of GI bleeding. PHYSICAL EXAMINATION: GENERAL: The patient is alert. ABDOMEN: Soft, nontender. The patient has borderline anemia as noted before. Please look into the laboratory values. CLINICAL IMPRESSION: The patient had upper endoscopy, lower endoscopy which did not explain the pro per findings for anemia, hence CAT scan of the abdomen is done. At this time, results of the CAT sc an of the abdomen is pending to see if it would explain any other causes of anemia. Dictated By: JAIMEE JUNIOR MD NC/JUSTO Conf#: [id number] DID#: [id number] CC: ASHLEY KAMINSKI MD;*EndCC*
[2017-02-24] MEDS: INSULIN ASPART [NOVOLOG] 3 ML PEN SC SCH ×4 (08:00→21:00)
[2017-02-24] MEDS ORDERED: EPOETIN 10000 UNITS/ML (NON ESRD/NON ONCOLOGY) SC ONE (09:30)
[2017-02-24] MEDS ORDERED: EPOETIN 2000 UNITS/ML INJ (NON ESRD/NON ONCOLOGY) SC ONE (09:30)
[2017-02-24] MEDS ORDERED: EPOETIN 3000 UNITS/ML (NON ESRD/NON ONCOLOGY) SC ONE (09:30)
[2017-02-24] MEDS: INDOMETHACIN 50 MG PO SCH (09:56)
[2017-02-24] MEDS: ISOSORBIDE MONONITRATE(SR)60 MG TAB PO SCH (09:57)
[2017-02-24] MEDS: ATORVASTATIN 40 MG TAB PO SCH (09:57)
[2017-02-24] MEDS: FUROSEMIDE 40 MG TAB PO SCH (09:57)
[2017-02-24] MEDS: LISINOPRIL 5 MG TAB PO SCH (09:58)
[2017-02-24] MEDS ORDERED: SOD FERRIC GLUC COMPLX 125 MG in SOD CHLORIDE 0.9% 100 ML IVPB ONE (10:30)
--- NOTE | 2017-02-24 14:27 | CONS ---
Date/Time of Note Date/Time of Note DATE: 02/24/17 TIME: 14:25 Assessment/Plan Assessment/Plan Chief Complaint/Hosp Course ASSESSMENT AND PLAN: An 81-year-old female with: 1. Syncope-? vasovagal. NL EF by echo 01/10 with no sig valve abnl and no ischemia with Nl EF by lexiscan 2. Carotid artery stenosis (less than 50% stenosis of internal carotid arteries bilaterally). 3. 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 Hypertension. 5. Dyslipidemia. 6. Diabetes mellitus. 7.anmeia-s/p EGD/colonscopy with polyps and esophagitis found Recc: -Tele to assess for arrythmia with no sig findings at this time and no signs of PPM dysfunction -Continue zestril/coreg -Continue statin -Continue coumadin with therapeutic INR -Continue lasix PO daily Problems: Consultation Date/Type/Reason Admit Date/Time Feb 17, 2017 at 17:30 Initial Consult Date 02/19/17 Type of Consultation: cardiology Reason for Consultation syncope Referring Provider: JAYA MUNROE MD Exam/Review of Systems Vital Signs Vitals Vital Signs Date Time Temp Pulse Resp B/P Pulse Ox O2 Delivery O2 Flow Rate FiO2 02/24/17 12:07 73 02/24/17 11:56 97.7 18 128/61 98 02/21/17 12:40 Room Air Intake and Output 02/23/17 02/23/17 02/24/17 15:00 23:00 07:00 Intake Total 300 ml 500 ml Balance 300 ml 500 ml Exam Review of Systems: CONSTITUTIONAL: No fevers, chills. PULMONARY: No sob CARDIOVASCULAR: No chest pain/palpitations GASTROINTESTINAL: No nausea/vomiting. GENITOURINARY: No hematuria/dysuria. MUSCULOSKELETAL: No myagias/arthalgias. PSYCHIATRIC: The patient denies depression. NEUROLOGIC: No weakness Constitutional: alert, oriented Psych: no complaints Head: normocephalic ENMT: mucosa pink and moist Neck: jvd (9 cm water), supple Respiratory: diminished breath sounds (at bases/B) Cardiovascular: regular rate and rhythm Gastrointestinal: non-tender, soft Musculoskeletal: muscle tone (normal) Extremities: edema (trace/B) Neurological: other Results Result Diagram: 02/24/17 0653 02/24/17 0655 Results 24 hrs Laboratory Tests Test 02/23/17 17:18 02/23/17 20:07 02/24/17 06:53 02/24/17 06:55 Bedside Glucose 167 109 White Blood Count 6.1 # Red Blood Count 2.85 L Hemoglobin 7.9 L Hematocrit 25.8 L Mean Corpuscular Volume 90.5 Mean Corpuscular Hemoglobin 27.7 L Mean Corpuscular Hemoglobin Concent 30.6 L Red Cell Distribution Width 14.6 H Platelet Count 246 Mean Platelet Volume 11.2 H Neutrophils % 71.5 Lymphocytes % 13.4 L Monocytes % 9.4 Eosinophils % 4.9 Basophils % 0.5 Nucleated Red Blood Cells % 0.0 Neutrophils # 4.4 Lymphocytes # 0.8 Monocytes # 0.6 Eosinophils # 0.3 Basophils # 0.0 Nucleated Red Blood Cells # 0.0 Prothrombin Time 30.0 H Prothrombin Time Ratio 2.3 INR International Normalized Ratio 2.81 Sodium Level 140 Potassium Level 5.0 Chloride Level 107 Carbon Dioxide Level 26 Anion Gap 12 Blood Urea Nitrogen 35 H Creatinine 1.24 H Glucose Level 96 Calcium Level 9.2 Total Bilirubin 0.1 L Direct Bilirubin 0.00 Indirect Bilirubin 0.1 Aspartate Amino Transf (AST/SGOT) 21 Alanine Aminotransferase (ALT/SGPT) 32 Alkaline Phosphatase 87 Total Protein 6.3 Albumin 2.9 L Globulin 3.40 H Albumin/Globulin Ratio 0.85 Test 02/24/17 08:38 02/24/17 12:30 Bedside Glucose 104 202 Medications Medications Current Medications Atorvastatin Calcium (Lipitor) 40 mg DAILY PO Last administered on 02/24/17 09 :57; Admin Dose 40 MG; Start 02/18/17 at 09:00 Carvedilol (Coreg) 25 mg BID PO Last administered on 02/24/17 09:57; Admin Dose 25 MG; Start 02/17/17 at 21:00 Furosemide (Lasix) 40 mg DAILY PO Last administered on 02/24/17 09:57; Admin Dose 40 MG; Start 02/18/17 at 09:00 Isosorbide Mononitrate (Imdur) 60 mg DAILY PO Last administered on 02/24/17 09 :57; Admin Dose 60 MG; Start 02/18/17 at 09:00 Nitroglycerin (Nitroglycerin (Sl Tab) 0.4 Mg) 0.4 tab [id number] PRN SL CHEST PAIN; Start 02/17/17 at 19:00 Warfarin Sodium (Coumadin) 5 mg DAILY@17 PO Last administered on 02/23/17 17: 16; Admin Dose 5 MG; Start 02/17/17 at 21:00 Diagnostic Test (Pha) (Accu-Chek) 1 ea 02 XX Last administered on 02/19/17 02 :00; Admin Dose 1 EA; Start 02/18/17 at 02:00 Miscellaneous Information 1 ea NOTE XX ; Start 02/17/17 at 20:00 Glucose (Glutose) 15 gm Q15M PRN PO DECREASED GLUCOSE; Start 02/17/17 at 20:00 Glucose (Glutose) 22.5 gm Q15M PRN PO DECREASED GLUCOSE; Start 02/17/17 at 20: 00 Dextrose (D50w Syringe) 25 ml Q15M PRN IV DECREASED GLUCOSE; Start 02/17/17 at 20:00 Dextrose (D50w Syringe) 50 ml Q15M PRN IV DECREASED GLUCOSE; Start 02/17/17 at 20:00 Glucagon (Glucagen) 1 mg Q15M PRN IM DECREASED GLUCOSE; Start 02/17/17 at 20: 00 Glucose (Glutose) 15 gm Q15M PRN BUCCAL DECREASED GLUCOSE; Start 02/17/17 at 20:00 Ondansetron HCl (Zofran Inj) 4 mg Q6H PRN IV NAUSEA AND/OR VOMITING; Start at 23:30 Acetaminophen (Tylenol Tab) 650 mg Q6H PRN PO PAIN LEVEL 1-3 OR FEVER Last administered on 02/23/17 10:19; Admin Dose 650 MG; Start 02/17/17 at 23:30 Docusate Sodium (Colace) 100 mg Q12H PRN PO CONSTIPATION Last administered on 02/18/17 08:42; Admin Dose 100 MG; Start 02/17/17 at 23:30 Magnesium Hydroxide (Milk Of Mag) 30 ml DAILY PRN PO CONSTIPATION; Start 02/17 at 23:30 Bisacodyl (Dulcolax) 5 mg DAILY PRN PO CONSTIPATION; Start 02/17/17 at 23:30 Lactulose (Enulose) 20 gm DAILY PRN PO CONSTIPATION; Start 02/20/17 at 12:30 Lisinopril (Zestril) 5 mg DAILY PO Last administered on 02/24/17 09:58; Admin Dose 5 MG; Start 02/22/17 at 09:00 Indomethacin (Indocin) 50 mg DAILY PO Last administered on 02/24/17 09:56; Admin Dose 50 MG; Start 02/22/17 at 11:30; Stop 02/25/17 at 11:29 MARINA RIOS Feb 24, 2017 14:27
[2017-02-24] MEDS: WARFARIN 5 MG TAB PO SCH (18:05)
--- NOTE | 2017-02-24 18:25 | PN ---
Date/Time of Note Date/Time of Note DATE: 02/24/17 TIME: 18:24 Assessment/Plan VTE Prophylaxis VTE Prophylaxis Intervention: other Lines/Catheters IV C[facility]ter Type (from [facility] [place] Lock Urinary Cath still in place: No Assessment/Plan Chief Complaint/Hosp Course # Presyncopy could be vasovagal/ neuro/anemia vs spinal stenosis # hx CHF, systolic # Chest pain with recent stress test negative, VQ scan negative # .Atrial fibrillation, controlled #. Renal insufficiency, CKD mild #. Anemia FOBT negative, 1b12 , folic acid normal # Morbid obesity # Dm type II controlled # Hx pacemaker #CAD #. Dyslipidemia anemia prbc S/P EGD AND COLONOSCOPY ANKEL PAIN better PLAN PAIN MEDS pt ot home soon prbc Problems: Subjective 24 Hr Interval Summary Respiratory: no complaints Cardiovascular: no complaints Musculoskeletal: bone/joint pain (better) Exam/Review of Systems Vital Signs Vitals Vital Signs Date Time Temp Pulse Resp B/P Pulse Ox O2 Delivery O2 Flow Rate FiO2 02/24/17 16:08 73 02/24/17 15:56 98.3 21 124/59 96 02/21/17 12:40 Room Air Intake and Output 02/23/17 02/23/17 02/24/17 15:00 23:00 07:00 Intake Total 300 ml 500 ml Balance 300 ml 500 ml Exam Respiratory: clear to auscultation Cardiovascular: regular rate and rhythm Gastrointestinal: bowel sounds (+), soft, No tender Musculoskeletal: range of motion (rt foot better) Results Result Diagram: 02/24/17 0653 02/24/17 0655 Results 24 hrs Laboratory Tests Test 02/23/17 20:07 02/24/17 06:53 02/24/17 06:55 02/24/17 08:38 Bedside Glucose 109 104 White Blood Count 6.1 # Red Blood Count 2.85 L Hemoglobin 7.9 L Hematocrit 25.8 L Mean Corpuscular Volume 90.5 Mean Corpuscular Hemoglobin 27.7 L Mean Corpuscular Hemoglobin Concent 30.6 L Red Cell Distribution Width 14.6 H Platelet Count 246 Mean Platelet Volume 11.2 H Neutrophils % 71.5 Lymphocytes % 13.4 L Monocytes % 9.4 Eosinophils % 4.9 Basophils % 0.5 Nucleated Red Blood Cells % 0.0 Neutrophils # 4.4 Lymphocytes # 0.8 Monocytes # 0.6 Eosinophils # 0.3 Basophils # 0.0 Nucleated Red Blood Cells # 0.0 Prothrombin Time 30.0 H Prothrombin Time Ratio 2.3 INR International Normalized Ratio 2.81 Sodium Level 140 Potassium Level 5.0 Chloride Level 107 Carbon Dioxide Level 26 Anion Gap 12 Blood Urea Nitrogen 35 H Creatinine 1.24 H Glucose Level 96 Calcium Level 9.2 Total Bilirubin 0.1 L Direct Bilirubin 0.00 Indirect Bilirubin 0.1 Aspartate Amino Transf (AST/SGOT) 21 Alanine Aminotransferase (ALT/SGPT) 32 Alkaline Phosphatase 87 Total Protein 6.3 Albumin 2.9 L Globulin 3.40 H Albumin/Globulin Ratio 0.85 Test 02/24/17 12:30 02/24/17 17:39 Bedside Glucose 202 111 Medications Medications Current Medications Atorvastatin Calcium (Lipitor) 40 mg DAILY PO Last administered on 02/24/17 09 :57; Admin Dose 40 MG; Start 02/18/17 at 09:00 Carvedilol (Coreg) 25 mg BID PO Last administered on 02/24/17 09:57; Admin Dose 25 MG; Start 02/17/17 at 21:00 Furosemide (Lasix) 40 mg DAILY PO Last administered on 02/24/17 09:57; Admin Dose 40 MG; Start 02/18/17 at 09:00 Isosorbide Mononitrate (Imdur) 60 mg DAILY PO Last administered on 02/24/17 09 :57; Admin Dose 60 MG; Start 02/18/17 at 09:00 Nitroglycerin (Nitroglycerin (Sl Tab) 0.4 Mg) 0.4 tab [id number] PRN SL CHEST PAIN; Start 02/17/17 at 19:00 Warfarin Sodium (Coumadin) 5 mg DAILY@17 PO Last administered on 02/24/17 18: 05; Admin Dose 5 MG; Start 02/17/17 at 21:00 Diagnostic Test (Pha) (Accu-Chek) 1 ea 02 XX Last administered on 02/19/17 02 :00; Admin Dose 1 EA; Start 02/18/17 at 02:00 Miscellaneous Information 1 ea NOTE XX ; Start 02/17/17 at 20:00 Glucose (Glutose) 15 gm Q15M PRN PO DECREASED GLUCOSE; Start 02/17/17 at 20:00 Glucose (Glutose) 22.5 gm Q15M PRN PO DECREASED GLUCOSE; Start 02/17/17 at 20: 00 Dextrose (D50w Syringe) 25 ml Q15M PRN IV DECREASED GLUCOSE; Start 02/17/17 at 20:00 Dextrose (D50w Syringe) 50 ml Q15M PRN IV DECREASED GLUCOSE; Start 02/17/17 at 20:00 Glucagon (Glucagen) 1 mg Q15M PRN IM DECREASED GLUCOSE; Start 02/17/17 at 20: 00 Glucose (Glutose) 15 gm Q15M PRN BUCCAL DECREASED GLUCOSE; Start 02/17/17 at 20:00 Ondansetron HCl (Zofran Inj) 4 mg Q6H PRN IV NAUSEA AND/OR VOMITING; Start at 23:30 Acetaminophen (Tylenol Tab) 650 mg Q6H PRN PO PAIN LEVEL 1-3 OR FEVER Last administered on 02/23/17 10:19; Admin Dose 650 MG; Start 02/17/17 at 23:30 Docusate Sodium (Colace) 100 mg Q12H PRN PO CONSTIPATION Last administered on 02/18/17 08:42; Admin Dose 100 MG; Start 02/17/17 at 23:30 Magnesium Hydroxide (Milk Of Mag) 30 ml DAILY PRN PO CONSTIPATION; Start 02/17 at 23:30 Bisacodyl (Dulcolax) 5 mg DAILY PRN PO CONSTIPATION; Start 02/17/17 at 23:30 Lactulose (Enulose) 20 gm DAILY PRN PO CONSTIPATION; Start 02/20/17 at 12:30 Lisinopril (Zestril) 5 mg DAILY PO Last administered on 02/24/17 09:58; Admin Dose 5 MG; Start 02/22/17 at 09:00 Indomethacin (Indocin) 50 mg DAILY PO Last administered on 02/24/17 09:56; Admin Dose 50 MG; Start 02/22/17 at 11:30; Stop 02/25/17 at 11:29 ASHLEY KAMINSKI MD Feb 24, 2017 18:25
[2017-02-25] VITALS (10 sets, daily range): BP systolic 115–140; BP diastolic 63–80; PULSE 65–76; RESP 16–21
[2017-02-25] MEDS: ACCU-CHEK XX SCH (02:00)
[2017-02-25] MEDS: INSULIN ASPART [NOVOLOG] 3 ML PEN SC SCH ×3 (08:00→17:52)
[2017-02-25] MEDS: ATORVASTATIN 40 MG TAB PO SCH (08:55)
[2017-02-25] MEDS: FUROSEMIDE 40 MG TAB PO SCH (08:55)
[2017-02-25] MEDS: INDOMETHACIN 50 MG PO SCH (08:55)
[2017-02-25] MEDS: ISOSORBIDE MONONITRATE(SR)60 MG TAB PO SCH (08:56)
[2017-02-25] MEDS: LISINOPRIL 5 MG TAB PO SCH (08:56)
--- NOTE | 2017-02-25 12:51 | PDOCDIS ---
Discharge Instructions CONDITION Patient Condition: Stable HOME CARE INSTRUCTIONS: Special Diet: 1800ada ACTIVITY: Activity Restrictions: Slowly Increase Activity FOLLOW UP/APPOINTMENTS Follow-up Plan f/u pcp [address] kaminski [address] dugan [address] torres 1 wk ASHLEY KAMINSKI MD Feb 25, 2017 12:51
[2017-02-25] MEDS ORDERED: BISA5TAB6 PO (12:54)
[2017-02-25] MEDS ORDERED: CARV25TA97 PO (12:54)
--- NOTE | 2017-02-25 14:25 | CONS ---
Date/Time of Note Date/Time of Note DATE: 02/25/17 TIME: 14:23 Assessment/Plan Assessment/Plan Chief Complaint/Hosp Course ASSESSMENT AND PLAN: An 81-year-old female with: 1. Syncope-? vasovagal. NL EF by echo 01/10 with no sig valve abnl and no ischemia with Nl EF by lexiscan 12/2016 2. Carotid artery stenosis (less than 50% stenosis of internal carotid arteries bilaterally). 3. 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 Hypertension. 5. Dyslipidemia. 6. Diabetes mellitus. 7.anmeia-s/p EGD/colonscopy with polyps and esophagitis found Recc: -Tele to assess for arrythmia with no sig findings at this time and no signs of PPM dysfunction -Continue zestril/coreg -Continue statin -Continue coumadin with therapeutic INR -Continue lasix PO daily -If remains stable then d/c planning from cardiac standpoint Problems: Consultation Date/Type/Reason Admit Date/Time Feb 17, 2017 at 17:30 Initial Consult Date 02/19/17 Type of Consultation: cardiology Reason for Consultation pre-op/syncope Referring Provider: JAYA MUNROE MD Exam/Review of Systems Vital Signs Vitals Vital Signs Date Time Temp Pulse Resp B/P Pulse Ox O2 Delivery O2 Flow Rate FiO2 02/25/17 12:04 68 02/25/17 11:53 98.3 20 140/73 96 02/21/17 12:40 Room Air Intake and Output 02/24/17 02/24/17 02/25/17 15:00 23:00 07:00 Intake Total 800 ml 500 ml Balance 800 ml 500 ml Exam Review of Systems: CONSTITUTIONAL: No fevers, chills. PULMONARY: No sob CARDIOVASCULAR: No chest pain/palpitations GASTROINTESTINAL: No nausea/vomiting. GENITOURINARY: No hematuria/dysuria. MUSCULOSKELETAL: No myagias/arthalgias. PSYCHIATRIC: The patient denies depression. NEUROLOGIC: No weakness Constitutional: alert, oriented Psych: no complaints Head: normocephalic ENMT: mucosa pink and moist Neck: jvd (8 cm water), supple Respiratory: clear to auscultation Cardiovascular: regular rate and rhythm Gastrointestinal: non-tender, soft Musculoskeletal: muscle tone (normal) Extremities: edema (none) Neurological: other (No focal deficits) Results Result Diagram: 02/25/17 0604 02/24/17 0655 Results 24 hrs Laboratory Tests Test 02/24/17 17:39 02/24/17 20:15 02/25/17 06:04 02/25/17 06:08 Bedside Glucose 111 167 White Blood Count 6.4 Red Blood Count 3.15 L Hemoglobin 8.6 L Hematocrit 28.2 L Mean Corpuscular Volume 89.5 Mean Corpuscular Hemoglobin 27.3 L Mean Corpuscular Hemoglobin Concent 30.5 L Red Cell Distribution Width 15.1 H Platelet Count 274 Mean Platelet Volume 11.6 H Neutrophils % 67.5 Lymphocytes % 14.7 L Monocytes % 11.3 H Eosinophils % 5.5 Basophils % 0.8 Nucleated Red Blood Cells % 0.0 Neutrophils # 4.3 Lymphocytes # 0.9 Monocytes # 0.7 Eosinophils # 0.4 Basophils # 0.1 Nucleated Red Blood Cells # 0.0 Prothrombin Time 30.0 H Prothrombin Time Ratio 2.3 INR International Normalized Ratio 2.81 Lab Scanned Report BLOOD TRANSFUSION Test 02/25/17 08:13 02/25/17 11:57 Bedside Glucose 104 139 Medications Medications Current Medications Atorvastatin Calcium (Lipitor) 40 mg DAILY PO Last administered on 02/25/17 08 :55; Admin Dose 40 MG; Start 02/18/17 at 09:00 Carvedilol (Coreg) 25 mg BID PO Last administered on 02/25/17 08:55; Admin Dose 25 MG; Start 02/17/17 at 21:00 Furosemide (Lasix) 40 mg DAILY PO Last administered on 02/25/17 08:55; Admin Dose 40 MG; Start 02/18/17 at 09:00 Isosorbide Mononitrate (Imdur) 60 mg DAILY PO Last administered on 02/25/17 08 :56; Admin Dose 60 MG; Start 02/18/17 at 09:00 Nitroglycerin (Nitroglycerin (Sl Tab) 0.4 Mg) 0.4 tab [id number] PRN SL CHEST PAIN; Start 02/17/17 at 19:00 Warfarin Sodium (Coumadin) 5 mg DAILY@17 PO Last administered on 02/24/17 18: 05; Admin Dose 5 MG; Start 02/17/17 at 21:00 Diagnostic Test (Pha) (Accu-Chek) 1 ea 02 XX Last administered on 02/19/17 02 :00; Admin Dose 1 EA; Start 02/18/17 at 02:00 Miscellaneous Information 1 ea NOTE XX ; Start 02/17/17 at 20:00 Glucose (Glutose) 15 gm Q15M PRN PO DECREASED GLUCOSE; Start 02/17/17 at 20:00 Glucose (Glutose) 22.5 gm Q15M PRN PO DECREASED GLUCOSE; Start 02/17/17 at 20: 00 Dextrose (D50w Syringe) 25 ml Q15M PRN IV DECREASED GLUCOSE; Start 02/17/17 at 20:00 Dextrose (D50w Syringe) 50 ml Q15M PRN IV DECREASED GLUCOSE; Start 02/17/17 at 20:00 Glucagon (Glucagen) 1 mg Q15M PRN IM DECREASED GLUCOSE; Start 02/17/17 at 20: 00 Glucose (Glutose) 15 gm Q15M PRN BUCCAL DECREASED GLUCOSE; Start 02/17/17 at 20:00 Ondansetron HCl (Zofran Inj) 4 mg Q6H PRN IV NAUSEA AND/OR VOMITING; Start at 23:30 Acetaminophen (Tylenol Tab) 650 mg Q6H PRN PO PAIN LEVEL 1-3 OR FEVER Last administered on 02/23/17 10:19; Admin Dose 650 MG; Start 02/17/17 at 23:30 Docusate Sodium (Colace) 100 mg Q12H PRN PO CONSTIPATION Last administered on 02/18/17 08:42; Admin Dose 100 MG; Start 02/17/17 at 23:30 Magnesium Hydroxide (Milk Of Mag) 30 ml DAILY PRN PO CONSTIPATION; Start 02/17 at 23:30 Bisacodyl (Dulcolax) 5 mg DAILY PRN PO CONSTIPATION; Start 02/17/17 at 23:30 Lactulose (Enulose) 20 gm DAILY PRN PO CONSTIPATION; Start 02/20/17 at 12:30 Lisinopril (Zestril) 5 mg DAILY PO Last administered on 02/25/17 08:56; Admin Dose 5 MG; Start 02/22/17 at 09:00 MARINA RIOS 2, 2017 14:25
[2017-02-25] MEDS: WARFARIN 5 MG TAB PO SCH (17:16)
--- NOTE | 2017-02-28 12:13 | QN ---
Documentation Comment [id number] ASHLEY KAMINSKI MD Feb 28, 2017 12:13
--- NOTE | 2017-02-28 12:13 | QN ---
Documentation Comment [id number] ASHLEY KAMINSKI MD Feb 28, 2017 12:13
--- NOTE | 2017-02-28 12:13 | QN ---
Documentation Comment [id number] ASHLEY KAMINSKI MD Feb 28, 2017 12:13
--- NOTE | 2017-02-28 15:08 | DS ---
DATE OF ADMISSION: 02/17/2017 DATE OF DISCHARGE: 02/25/2017 HOSPITAL COURSE: The patient was admitted with diagnosis of near syncopal episode, rule out vasovagal, hypertension, hyponatremia, underlying CKD, arthritis, obesity, dyslipidemia. The patient was seen by Dr. Pool Cavazos in consultation. His impression, there is no current mention of the patient's review. The patient with a near syncopal episode, back to his baseline. Near syncopal episode is most probably related to the cardiovascular system and possibly related to vasovagal episode. Patient was seen by Dr. Travis in consultation, and his impression and recommendations were followed. Patient has antral gastritis. Minimal GERD, 2 colon polyp and hemorrhoid by EGD, colonoscopy. The patient has minimal reflux esophagitis, minimal antral gastritis. Since the patient has anemia and GI bleed, the patient has 2 polyps noted in the mid transverse colon and proximal transverse colon. The patient has minimal internal and minimal external hemorrhoid. Patient has right foot pain. X-ray was negative. The patient received pain medicine. Symptoms resolved. The patient is ambulating and was cleared by the strategic sourcing consultant to be discharged home. DISCHARGE DIAGNOSES: Vasovagal syncope, normal ejection fraction by echo, carotid artery stenosis, less than 50%, atrial fibrillation, hypertension, dyslipidemia, diabetes mellitus, anemia. The patient has gastritis. Patient' s other diagnoses include history atrial fibrillation, history of pacemaker placement for tachybrady syndrome, hypertension, dyslipidemia, diabetes mellitus , the patient has anemia, history of blood transfusion, chronic kidney disease, obesity, hypoalbuminemia. The patient has right foot pain, musculoskeletal, cardiomegaly, small ventral hernia. DISCHARGE MEDICATIONS: Patient to continue: 1. Bisacodyl. 2. Lipitor. 3. Coreg. 4. Lasix. 5. Glipizide. 6. Hydralazine. 7. Isosorbide. 8. ntg 9. Nitroglycerin. 10. Omeprazole. 11. Potassium. 12. Coumadin. Follow up with PCP, Dr. Owens and Dr. Travis as an outpatient. Orders were done. The patient is stable at the time of discharge. Dictated By: ASHLEY MALIK/JUSTO Conf#: [id number] DID#: [id number] [facility]
== END 2017-02-25 18:16 | disposition home or self-care (01) | DRG 811 ==
LOC: MS4 17:30
PROVIDERS: ADMIT Internal Medicine Nephrology; ATTEND Internal Medicine Nephrology
PROC: 0DJ08ZZ Inspection of Upper Intestinal Tract, Via Natural or Artificial Opening Endoscopic (ICD-10-PCS; 2017-02-22)
PROC: 0DDL8ZX Extraction of Transverse Colon, Via Natural or Artificial Opening Endoscopic, Diagnostic (ICD-10-PCS; 2017-02-22)
PROC: 30233N1 Transfusion of Nonautologous Red Blood Cells into Peripheral Vein, Percutaneous Approach (ICD-10-PCS; principal; 2017-02-24)
DX: D64.9 Anemia, unspecified (principal); I50.23 Acute on chronic systolic (congestive) heart failure; N17.9 Acute kidney failure, unspecified; E88.09 Other disorders of plasma-protein metabolism, not elsewhere classified; Z68.41 Body mass index [BMI] 40.0-44.9, adult; E87.1 Hypo-osmolality and hyponatremia; I36.1 Nonrheumatic tricuspid (valve) insufficiency; I48.91 Unspecified atrial fibrillation; R55 Syncope and collapse; I13.0 Hypertensive heart and chronic kidney disease with heart failure and stage 1 through stage 4 chronic kidney disease, or unspecified chronic kidney disease; E66.01 Morbid (severe) obesity due to excess calories; E11.9 Type 2 diabetes mellitus without complications; I34.0 Nonrheumatic mitral (valve) insufficiency; Z79.02 Long term (current) use of antithrombotics/antiplatelets; Z79.82 Long term (current) use of aspirin; Z95.0 Presence of cardiac pacemaker; M25.571 Pain in right ankle and joints of right foot; I65.23 Occlusion and stenosis of bilateral carotid arteries; K29.70 Gastritis, unspecified, without bleeding; K20.9 Esophagitis, unspecified; R19.5 Other fecal abnormalities; K63.5 Polyp of colon; N18.9 Chronic kidney disease, unspecified; K43.9 Ventral hernia without obstruction or gangrene
CPT/HCPCS: 36430; 70450; 71010; 73600; 74176; 80048; 80053; 82550; 82553; 82962; 83735; 83880; 84484; 84560; 85025; 85610; 86850; 86900; 86901; 86920; 88104; 88305; 93005; 93880; 97110; 97116; 97161; 97530; J0885; J1815; J2916; J7030; P9016